=== PATIENT | female | born 1940 | race Caucasian/White ===

== ENCOUNTER 2022-01-14 11:31 | Outpatient (CLI) | payer MEDICARE, OTHER, SELFPAY ==
--- OUTSIDE RECORDS SUMMARY | 2022-02-05 14:44 | XMS_ITS | Clinical Summary ---
:1940 Author Organization [facility] Address [address] [place] [address] Care Team Providers Name Role Phone Unavailable Primary Care Provider Unavailable Source Comments Patient records contain information from all sites at [facility]. For routine questions regarding patient records, call [phone] during business hours, M-F 8:00 AM - 5:00 PM Central Time. Record requests for emergency care only can be directed to [phone] at any time.[facility] Allergies Active Allergy Reactions Severity Noted Date Comments [place] Hives 03/08/2016 Codeine GI intolerance nausea and vo miting from narcotics Medications Medication Sig Dispensed Refills Start Date End Date Status atorvastatin Take 20 mg by mouth 2 04/27/2017 Active (for_LIPITOR) 20 mg once daily. tablet calcium Take 1 tablet by 0 04/01/2016 Ac tive carbonate-vitamin D3 mouth 3 (three) 625 mg (250 mg times a day. calcium)-125 unit per tablet GLUCOSAMINE/CHONDR CHANG Take by mouth 0 04/01/2016 Active A SOD daily. (GLUCOSAMINE-CHONDROI TIN) 1,500-1,200 mg/30 mL liquid lisinopril-hydroCHLOR Take 2 tablets by 3 04/28/2017 Active Othiazide mouth once daily. (for_PRINZIDE,ZESTORE TIC) 20-12.5 mg per tablet multivitamin Take by mouth 0 04/01/2016 Ac tive (for_MULTI-DELYN) daily. liquid EIBHO-6-[id number]-EPA-DPA-F Take 1 capsule by 0 04/01/2016 Active ROYCE OIL ORAL mouth daily. amLODIPine Take 5 mg by mouth 0 Active (for_NORVASC) 5 mg daily. tablet azelaic acid Apply topically 2 0 10/22/2017 Active (FINACEA) 15 % gel (two) times a day as needed. omeprazole (PriLOSEC) Take 40 mg by 0 10/06/2017 Active 40 mg capsule mouth. metroNIDAZOLE Apply to involved 45 g 0 01/25/2019 Active (METROCREAM) 0.75 % areas of face 1-2 cream times per day famotidine (PEPCID) Take 20 mg by mouth 0 06/06/2020 Active 20 mg tablet 2 (two) times a day. celecoxib (CeleBREX) Take 200 mg by 0 06/26/2020 Active 200 mg capsule mouth. naproxen (NAPROSYN) Take 500 mg by 0 06/26/2020 Active 500 mg tablet mouth. lidocaine (XYLOCAINE) Apply topically. 0 02/02/2020 Active 5 % ointment metroNIDAZOLE Apply 1 application 45 g 0 07/11/2020 Active (ROSADAN) 0.75 % gel topically 2 (two) times a day. ketoconazole Apply sparingly to 30 g 1 01/08/2021 Active (NIZORAL) 2 % cream rash involving corners of mouth 1-2 times daily for a few weeks then stop Active Problems No known active problems Immunizations Name Administration Dates Next Due H1N1 Inj 06/13/2009 HZV (ZOSTAVAX) 08/25/2006 HepA Adult 03/06/2004, 09/16/2003 Influenza (IM) Preservative Free 03/15/2011, 03/08/2010 Influenza TIV (IM) 03/20/2019, 03/17/2017, 03/10/2013, 04/02/2012, 03/15/2011, 03/08/2010, 03/16/2009, 04/06/2008, 04/03/2007, 05/08/2005 Influenza, Seasonal, Injectable 03/10/2013, 04/02/2012, 11/0 02/2005 Lyme Disease 09/29/1999, 10/28/1998, 09/28/1998 PCV13 02/21/2015 PPSV23 05/15/2008 RZV (SHINGRIX) 05/28/2018, 03/11/2018 SARS-COV-2 (COVID-19) - PFIZER (12 09/12/2020, 08/18/2020 years or older) Td Preservative Free (TENIVAC, 03/17/2017 DECAVAC) Tdap 10/19/2007 influenza high dose (65 years or 03/02/2020, 03/19/2018, , older) (PF) 03/03/2015, 02/25/2014 Social History Tobacco Use Types Packs/Day Years Used Date Smoking Tobacco: Never Cigarettes Smokeless Tobacco: Never Sex Assigned at Date Recorded Not on file Last Filed Vital Signs Vital Sign Reading Time Taken Comments Blood Pressure 130/84 05/26/2017 9:43 AM [employer]OUND [employer] SUPERVISOR Pulse 78 05/26/2017 9:43 AM [employer]OUND [employer] SUPERVISOR Temperature 36.6 ??C (97.9 ??F) 05/26/2017 9:43 AM [employer]OUND [employer] 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 [address] [place] [phone] (Wo rk) Health Maintenance Due Date Last Done Comments Depression Screening (Annual 06/30/2021 PHQ-2) Creatinine Level 04/18/2022 04/18/2021, 04/11/2020, 04/22/2019, Additional history exists Potassium Level 04/18/2022 04/18/2021, 04/11/2020, 04/22/2019, Additional history exists Sodium Level 04/18/2022 04/18/2021, 04/11/2020, 04/22/2019, Additional history exists Influenza Vaccine (#1) 2022 03/06/2021, 03/02/2020, 03/02/2020, Additional history exists DTaP,Tdap,and Td Vaccines (3 - Td 03/17/2027 03/17/2017, or Tdap) Pneumococcal vaccine (65+ years) Completed 02/21/2015, Zoster Vaccines Completed 05/28/2018, 03/11/2018, 08/25/2006 Fall Risk Screen (Annual) Completed 07/17/2021 COVID-19 Vaccine Completed 10/24/2021, 03/27/2021, 09/12/2020, Additional history exists Insurance Payer Benefit Plan / Subscriber ID Effective Phone Address T ype Group Dates MEDICARE MEDICARE A AND [id number] 1998-Prese [address] [place] [address] MEDICA MEDICA PRIME [id number] 2017-Prese [phone] [address] [place] [address] Advance Directives For more information, please contact: [phone] Documents on File Type Date Recorded 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 See document viewer.
--- OUTSIDE RECORDS SUMMARY | 2022-02-05 14:45 | XMS_ITS | Encounter Summary ---
:1940 Author Organization [facility] Address [address] [place] [address] Care Team Providers Name Role Phone Unavailable Primary Care Provider Unavailable Reason for Referral Outpatient (Routine) - Closed Specialty Diagnoses / Procedures Referred By Contact Refer red To Contact Orthopedic Surgery Mari Tinajero, [facility] D.P.M. [address] [place] [phone] Referral ID Status Reason Start Date Expiration Date Visits Requ ested Visits Authorized [id number] Closed 09/29/2017 03/28/2018 1 1 Scheduling Instructions I have talked to the patient and she felipe l be here at 9:00 for a 9:15 appointment. Encounter Details Date Type Department Care Team Description 09/26/2017 Orders Only Department of Mari Tinajero Pain Foot Left (Primary Orthopedic Surgery in R, D.P.M. Dx) Reginaldo Comer, [address] [place] [address] [address] [place] [phone] (Work) [phone] Social History Tobacco Use Types Packs/Day Years Used Date Smoking Tobacco: Unknown Smokeless Tobacco: Never Sex Assigned at Date Recorded Not on file documented as of this encounter Plan of Treatment Upcoming Encounters Date Type Specialty Care Team Description 03/05/2022 Office Visit Dermatology Finn Quinonez M.D. [address] [place], [place] [phone] (Wo rk) Scheduled Referrals Name Type Priority Associated Diagnoses Order S chedule Ortho Surg / Outpatient Referral Routine Expected : Podiatry estab pt 10/06/2017 visit (clinic) (Approximate) , Expires: 09/29/2020 documented as of this encounter Results DX Foot Left 3+ Views (09/26/2017 12:59 PM CDT) Anatomical Region Laterality Modality Lower Extremity, Foot Left Digital Radiograph y Specimen (Source) Anatomical Collection Method Collection Time Re ceived Time Location / / Volume Laterality 09/26/2017 1:12 PM CDT Impressions 09/26/2017 1:17 PM CDT IMPRESSION: Tiny Achilles and small plantar calcaneal enthesophytes. No radiographic evidence of acute fracture or dislocation. 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 N o erosive or osteolytic changes. No appreciable ankle joint effusion. Probab le pes planus. Narrative 09/26/2017 1:17 PM CDT EXAM: DX FOOT LEFT 3+ VIEWS Procedure Note Amadou Angulo M.D. - 09/26/2017Formatt ing of this note might be different from the original. EXAM: DX FOOT LEFT 3+ VIEWS IMPRESSION: Tiny Achilles and small plan tar calcaneal enthesophytes. No radiographic evidence of acute fracture or dislocation. 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 N o erosive or osteolytic changes. No appreciable ankle joint effusion. Probab le pes planus. Mari [facility] ALEXIS ZAPATA documented in this encounter Visit Diagnoses Diagnosis Pain Foot Left - Primary Pain Foot Left documented in this encounter
--- OUTSIDE RECORDS SUMMARY | 2022-02-05 14:45 | XMS_ITS | Encounter Summary ---
:1940 Author Organization [facility] Address [address] [place] [address] Care Team Providers Name Role Phone Unavailable Primary Care Provider Unavailable Encounter Details Date Type Department Care Team Description 09/12/2020 Immunization Department of Marlon Chen For COVID-19 Medicine, [place] Ilana Trujillo Vaccine Immunization Professional Building, [address] [place] [address] [address] [address] [place] [address] [phone] Social History Tobacco Use Types Packs/Day Years Used Date Smoking Tobacco: Never Cigarettes Smokeless Tobacco: Never Sex Assigned at Date Recorded Not on file documented as of this encounter Plan of Treatment Upcoming Encounters Date Type Specialty Care Team Description 03/05/2022 Office Visit Dermatology Finn Quinonez M.D. [address] [place], [place] [phone] (Wo rk) documented as of this encounter Visit Diagnoses Diagnosis Encounter For COVID-19 Vaccine Immunizat ion documented in this encounter
--- OUTSIDE RECORDS SUMMARY | 2022-02-05 14:45 | XMS_ITS | Encounter Summary ---
:1940 Author Organization [facility] Address [address] [place] [address] Care Team Providers Name Role Phone Unavailable Primary Care Provider Unavailable Reason for Visit Reason Comments Communication Encounter Details Date Type Department Care Team Description 07/28/2017 Clinical Communication Department of [facility] Fer montoya, Communication Medicine, Reginaldo Chun D.P.M. [facility], in [address] [place], [facility] [phone] [phone] [place], [place] (Work) [phone] Social History Tobacco Use Types Packs/Day Years Used Date Smoking Tobacco: Former Smokeless Tobacco: Never Sex Assigned at Date Recorded Not on file documented as of this encounter Miscellaneous Notes Telephone Encounter - Maria Victoria Mcgrath - 07/28/2017 1:42 PM CST Pt is currently doing pt for knee pain and is having a hard time doing physical therapy because of her feet pain. Pt says its had to walk and is wondering if there is anyway to get in to see Dr. Ramos earlier then her apt she currently has for 08/18/17. She can be reached at [phone] R DIRECTOR documented in this encounter Plan of Treatment Upcoming Encounters Date Type Specialty Care Team Description 03/05/2022 Office Visit Dermatology Finn Quinonez M.D. [address] [place], [place] [phone] (Wo rk) documented as of this encounter Visit Diagnoses Not on filedocumented in this encounter
--- OUTSIDE RECORDS SUMMARY | 2022-02-05 14:45 | XMS_ITS | Encounter Summary ---
:1940 Author Organization [facility] Address [address] [place] [address] Care Team Providers Name Role Phone Unavailable Primary Care Provider Unavailable Encounter Details Date Type Department Care Team Description 04/23/2021 Ancillary Procedure Department of Dermatology Social History Tobacco Use Types Packs/Day Years Used Date Smoking Tobacco: Never Cigarettes Smokeless Tobacco: Never Sex Assigned at Date Recorded Not on file documented as of this encounter Plan of Treatment Upcoming Encounters Date Type Specialty Care Team Description 03/05/2022 Office Visit Dermatology Finn Quinonez M.D. [address] [place], [place] [phone] (Wo rk) documented as of this encounter Procedures Procedure Name Priority Date/Time Associated Comments Diagnosis DERMATOLOGY IMAGE Routine 04/23/2021 3:15 PM Resu lts for this EXAM CDT procedure are i n the results section. documented in this encounter Results Cheek, right 12 14 26 28 38-Dermatology Image Exam (04/23/2021 3:15 PM CDT) Specimen (Source) Anatomical Collection Method Collection Time Re ceived Time Location / / Volume Laterality 04/23/2021 3:12 PM CDT Narrative [facility] - 04/23/2021 3:17 PM CDT This order has been created and auto-finalized to support the import of images acquired without order. The clini lexus documentation to support these images can be found on the encounter beau t produced images. Provider Not In System IMG NON RAD IMAGING PROCEDUR ES Performing Organization Address City/State/ZIP Code Phon e Number [facility] NA documented in this encounter Visit Diagnoses Not on filedocumented in this encounter
--- OUTSIDE RECORDS SUMMARY | 2022-02-05 14:45 | XMS_ITS | Encounter Summary ---
:1940 Author Organization [facility] Address [address] [place] [address] Care Team Providers Name Role Phone Unavailable Primary Care Provider Unavailable Reason for Referral Outpatient (Routine) - Closed Specialty Diagnoses / Procedures Referred By Contact Refer red To Contact Orthopedic Surgery Diagnoses Deformity Toe Acquired Right Pain Limb Generalized Mari Tinajero [facility] Region D.P.M. [address] [place] [phone] Referral ID Status Reason Start Date Expiration Date Visits Requ ested Visits Authorized [id number] Closed 10/06/2017 04/04/2018 1 1 Reason for Visit Reason Comments Follow-up Pain Outpatient (Routine) - Closed Specialty Diagnoses / Procedures Referred By Contact Refer red To Contact Orthopedic Surgery Mari Tinajero [facility] D.P.M. [address] [place] [address] Referral ID Status Reason Start Date Expiration Date Visits Requ ested Visits Authorized [id number] Closed 09/29/2017 03/28/2018 1 1 Encounter Details Date Type Department Care Team Description 10/06/2017 Office Visit Department of Mari Tinajero Deformity Toe Acquired Right (Primary Dx); Orthopedic Surgery in R, D.P.M. Pain Limb Generalized Reginaldo Comer, [address] [place] [address] [address] [place] [phone] (Work) [phone] Social History Tobacco Use Types Packs/Day Years Used Date Smoking Tobacco: Never Cigarettes Smokeless Tobacco: Never Sex Assigned at Date Recorded Not on file documented as of this encounter Progress Notes Mari Tinajero D.P.M. - 10/06/2017 9:15 AM CDT CHIEF COMPLAINT / REASON FOR VISIT Rubi Mota is a 77 y.o. female who presents for follow-up of Follow-up and Pain of the Left Foot. HISTORY OF PRESENT ILLNESS Patient seen for follow-up of left 2nd MTPJ pain. She has had 2 previous injections for intermetatarsal space pain, and states that the last 1 was not very beneficial at all. Now she has increasing pain on the dorsum of her foot as well. 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 There is some mild inflammation noted both dorsally and plantarly around the MTPJ. Weightbearing does demonstrate some dorsal displacement at the MTPJ, which is amenable to structural correction with just mild pressure applied dorsally. IMAGING X-ray taken previously and reviewed independently today with the patient demonstrates the increasingprominence of the 2nd hammertoe deformity with MTPJ contracture. ASSESSMENT / PLAN #1 Deformity Toe Acquired Right #2 Pain Limb Generalized Patient has an upcoming trip, and is desiring to be pain free for that. For this reason she was placed in a digital splint to help stabilize the MTPJ. If this works for her then she can continue in this fashion. However, after return from her trip, if she is having recurrence or ongoing problems, we may need to consider addressing the hammertoe deformity surgically at that time. She will follow up again p.r.n.. documented in this encounter Plan of Treatment Upcoming Encounters Date Type Specialty Care Team Description 03/05/2022 Office Visit Dermatology Finn Quinonez M.D. [address] [place] [phone] ( renard) Scheduled Referrals Name Type Priority Associated Diagnoses Order S [facility] Orthopedic Surgery Outpatient Referral Routine Deformity Toe E xpected: office visit Acquired Right 11/05/2017 (clinic) Pain Limb (Approximate), Generalized Expires: 10/06/2020 documented as of this encounter Visit Diagnoses Diagnosis Deformity Toe Acquired Right - Primary Pain Limb Generalized documented in this encounter
--- OUTSIDE RECORDS SUMMARY | 2022-02-05 14:45 | XMS_ITS | Encounter Summary ---
:1940 Author Organization [facility] Address [address] [place] [address] Care Team Providers Name Role Phone Unavailable Primary Care Provider Unavailable Encounter Details Date Type Department Care Team Description 05/22/2017 Abstract Department of Family Medicine, Provider, [facility], in [place], [place] [address] [place] [address] Social History Tobacco Use Types Packs/Day Years Used Date Smoking Tobacco: Former Sex Assigned at Date Recorded Not on file documented as of this encounter Plan of Treatment Upcoming Encounters Date Type Specialty Care Team Description 03/05/2022 Office Visit Dermatology Finn Quinonez M.D. [address] [place], [place] [phone] (Wo rk) documented as of this encounter Visit Diagnoses Not on filedocumented in this encounter
--- OUTSIDE RECORDS SUMMARY | 2022-02-05 14:45 | XMS_ITS | Encounter Summary ---
:1940 Author Organization [facility] Address [address] [place] [address] Care Team Providers Name Role Phone Unavailable Primary Care Provider Unavailable Reason for Referral Specialty Diagnoses / Procedures Referred By Contact Refer red To Contact [facility] [place] [facility] [place] [address] [place] [address] Referral ID Status Reason Start Date Expiration Date Visits Requ ested Visits Authorized ERSHIP SOLICITOR Encounter Details Date Type Department Care Team Description 08/18/2020 Immunization Department of Dorys Pelletier En[place] unter For COVID-19 Medicine, [place] MKamini Vaccine Immunization Professional Building, [address] [facility] (Primary Dx) in [address] [address] [place] [address] [phone] Social History Tobacco Use Types Packs/Day Years Used Date Smoking Tobacco: Never Cigarettes Smokeless Tobacco: Never Sex Assigned at Date Recorded Not on file documented as of this encounter Plan of Treatment Upcoming Encounters Date Type Specialty Care Team Description 03/05/2022 Office Visit Dermatology Finn Quinonez M.D. [address] [place], [place] [phone] (Wo rk) Scheduled Referrals Name Type Priority Associated Diagnoses Order S chedule Covid immunization Outpatient Referral Routine Encounter For E xpected: office visit COVID-19 Vaccine 09/08/2020, Subsequent; 21 days Immunization Expires: 08/18/2023 documented as of this encounter Visit Diagnoses Diagnosis Encounter For COVID-19 Vaccine Immunizat ion - Primary documented in this encounter
--- OUTSIDE RECORDS SUMMARY | 2022-02-05 14:45 | XMS_ITS | Encounter Summary ---
:1940 Author Organization [facility] Address [address] [place] [address] Care Team Providers Name Role Phone Unavailable Primary Care Provider Unavailable Reason for Visit Reason Comments Toe Problem Pain Outpatient (Routine) - Closed Specialty Diagnoses / Procedures Referred By Contact Refer red To Contact Orthopedic Surgery Diagnoses Deformity Toe Acquired Right Pain Limb Generalized Mari Tinajero [facility] D[facility]. [address] [place] [address] Referral ID Status Reason Start Date Expiration Date Visits Requ ested Visits Authorized [id number] Closed 10/06/2017 04/04/2018 1 1 Encounter Details Date Type Department Care Team Description 11/17/2017 Office Visit Department of Mari Tinajero Deformity Toe Acquired Right; Orthopedic Surgery in [place] Pain Limb Generalized [place], [address] [place] [address] [address] [place], [place] [phone] (Work) [phone] Social History Tobacco Use Types Packs/Day Years Used Date Smoking Tobacco: Never Cigarettes Smokeless Tobacco: Never Sex Assigned at Date Recorded Not on file documented as of this encounter Progress Notes Mari Tinajero, D.P.M. - 11/17/2017 10:15 AM CDT CHIEF COMPLAINT / REASON FOR VISIT Chief Complaint Patient presents with ??? Left Foot - Toe Problem, Pain HISTORY OF PRESENT ILLNESS Rubi Mota is a 77 y.o. female who presents for evaluation of left dorsolateral midfoot pain. Previous injections have been done in the 2nd intermetatarsal space and sub 2nd MTPJ. She has new orthotics with 2nd met head accomodation. She was recently on a cruise and may have done some more walking which aggravated her foot. PAST MEDICAL HISTORY, SURGICAL HISTORY, SOCIAL HISTORY, FAMILY HISTORY, ALLERGIES, and MEDICATIONS were reviewed per the electronic health record tab dated 11/17/2017. ROS: Hepatic - negative, Constitutional - negative, Integumentary - negative, GI - negative, Musculoskeletal - see HPI PHYSICAL EXAMINATION: Patient has a semi rigid 2nd PIPJ hammertoe deformity with some contracture and deformity at the MTPJ as well. There is no inflammation and patient has no pain to palpation in this area currently. She does however have pain to palpation on the dorsal lateral midfoot consistent with the 4th 5th met cuboid region. There is no pain with eversion against resistance or along course of peroneal tendon. There is no erythema edema ecchymosis or signs of acute process. IMPRESSION/REPORT Left lateral midfoot pain, history of 2nd hammertoe and MTPJ pain. PLAN: I recommended cortisone injection into the left 4th, 5th cuboid region due to the nature of her pain which has been rated as high as 6/10. The rationale for the procedure was discussed. Risks, benefits, and alternative treatments were discussed as well. The patient was given the opportunity to ask appropriate questions, and does understand the risks, benefits, and alternatives. The patient preference agrees with my recommendation and therefore we will proceed as planned. See procedure note for thisdate. Although she has tried different orthotics recently to resolve her discomfort as well as the digitalsplint, I recommended that she continue with her new, more rigid orthotics to prevent any excessive midfoot movement. She will follow up again p.r.n. if ongoing symptoms or concerns. documented in this encounter Procedure Notes Mari Tinajero D.P.M. - 11/17/2017 10:15 AM CDTAssociated Order(s): SMALL JOINT INJECTION Post-Procedure Diagnose(s): Pain Limb Generalized Small joint aspir-inject Date/Time: 11/17/2017 10:45 AM Performed by: Mari Tinajero Authorized by: Mari Tinajero [facility] Risk Control Consultant services utilized: belt loop cutter not needed Risks discussed with: patient Procedural risks discussed, including (but not limited to) the following: allergic reaction, transient increased pain, infection and subcut. fat atrophy Consent obtained: written The benefits, risks and alternatives to the procedure and the potential need for sedation or anesthesia as well as the names, roles, and responsibilities of healthcare team members performing significant interventional tasks were discussed with the patient and/or decision maker: yes Procedure purpose: therapeutic Skin preparation: alcohol Procedure performed: injection only Foot-Ankle procedure: L midfoot TMT 4 and L midfoot TMT 5 joint injection, end of procedure/site listing. The following medications were administered at the target site(s): Local anesthetics: 1 mL lidocaine (PF) 10 mg/mL (1 %) Corticosteroid: 1 mg dexamethasone 4 mg/mL; 40 mg triamcinolone acetonide 40 mg/mL; 20 mg triamcinolone acetonide 40 mg/mL Procedure outcome: successful procedure Complications: no apparent complications Post-procedure instructions: avoid strenuous activity for 5 days Discharge instruction provided: ice area as needed for comfort documented in this encounter Plan of Treatment Upcoming Encounters Date Type Specialty Care Team Description 03/05/2022 Office Visit Dermatology Finn Quinonez M.D. [address] [place] [phone] (Wo rk) documented as of this encounter Procedures Procedure Name Priority Date/Time Associated Diagnosis Comme nts HI ARTHCS ASP/INJ Routine 11/17/2017 10:15 AM Pain Limb Res ults for this INT JT WO US CDT Generalized procedure are i n the results section. documented in this encounter Results HI ARTHCS ASP/INJ INT JT WO US (11/17/2017 10:15 AM CDT) Narrative MMODAL - 11/17/2017 10:15 AM CDT Brittnee McconnellPTaqueriaMTaqueria ? 11/17/2017 11:41 AM Small joint aspir-inject Date/Time: 11/17/2017 10:45 AM Performed by: Mari Tinajero Authorized by: Mari Tinajero [facility] Risk Control Consultant services utilized: interpret er not needed ?? Risks discussed with: patient Procedural risks discussed, including (b ut not limited to) the following: allergic reaction, transient increased p ain, infection and subcut. fat atrophy Consent obtained: written The benefits, risks and alternatives to the procedure and the potential need for sedation or anesthesia as well as the names, roles, and responsibilities of healthcare team memb ers performing significant interventional tasks were discussed with the patient and/or decision maker: yes ?? Procedure purpose: therapeutic Skin preparation: alcohol Procedure performed: injection only Foot-Ankle procedure: ??L midfoot TMT 4 and L midfoot TMT 5 joint injection, end of procedure/site listing . The following medications were administe red at the target site(s): ??Local anesthetics: 1 mL lidocaine (PF ) 10 mg/mL (1 %) ??Corticosteroid: 1 mg dexamethasone 4 mg/mL; 40 mg triamcinolone acetonide 40 mg/mL; 20 mg triamcinolone acetonide 40 mg/mL Procedure outcome: ??successful procedur e Complications: no apparent complications ??Post-procedure instructions: avoid st renuous activity for 5 days ??Discharge instruction provided: ice a uyliet as needed for comfort Mari Tinajero D.P.MTaqueria PROCEDURE/MINOR SURGICAL ORD ERABLES Performing Organization Address City/State/ZIP Code Phon e Number MMODAL MMODAL NA documented in this encounter Visit Diagnoses Diagnosis Deformity Toe Acquired Right Pain Limb Generalized documented in this encounter Administered Medications Inactive Administered Medications - up to 3 most recent administrations Medication Order MAR Action Action Date Dose Rate Site dexamethasone injection 1 mg Given 11/17/2017 10:45 AM CDT 1 mg (DECADRON) 1 mg, intra-articular, One-Time Injection, Starting on Fri11/17/17 at 1045, For 1 dose lidocaine (PF) 10 mg/mL (1 %) injection 1 mL Given 8 10:45 AM CDT 1 mL (XYLOCAINE) 1 mL, infiltration, One-Time Injection, Starting on Fri11/17/17 at 1045, For 1 dose triamcinolone acetonide injection 20 mg Given 11/17/2017 10:45 A M CDT 20 mg (KENALOG-40) 20 mg, intra-articular, One-Time Injection, Starting on Fri11/17/17 at 1045, For 1 dose triamcinolone acetonide injection 40 mg Given 11/17/2017 10:45 A M CDT 40 mg (KENALOG-40) 40 mg, intra-articular, One-Time Injection, Starting on Fri11/17/17 at 1045, For 1 dose documented in this encounter
--- OUTSIDE RECORDS SUMMARY | 2022-02-05 14:45 | XMS_ITS | Encounter Summary ---
:1940 Author Organization [facility] Address [address] [place] [address] Care Team Providers Name Role Phone Unavailable Primary Care Provider Unavailable Reason for Referral Specialty Diagnoses / Procedures Referred By Contact Refer red To Contact Dorys Casillas M.D. [facility] [address] [place], [place] [phone] Referral ID Status Reason Start Date Expiration Date Visits Requ ested Visits Authorized T CUTTER Encounter Details Date Type Department Care Team Description 08/01/2020 Orders Only [facility] Sa wanda Casillas M.D. [address] [place] [phone] (Rigo glynn) Social History Tobacco Use Types Packs/Day Years Used Date Smoking Tobacco: Never Cigarettes Smokeless Tobacco: Never Sex Assigned at Date Recorded Not on file documented as of this encounter Plan of Treatment Upcoming Encounters Date Type Specialty Care Team Description 03/05/2022 Office Visit Dermatology Finn Quinonez M.D. [address] [place] [phone] (Wo renard) Scheduled Referrals Name Type Priority Associated Order Schedule Diagnoses Covid immunization Outpatient Referral Routine Ex pected: office visit Initial 021 (Approximate), Expires: 08/01/2021 documented as of this encounter Visit Diagnoses Not on filedocumented in this encounter
--- OUTSIDE RECORDS SUMMARY | 2022-02-05 14:45 | XMS_ITS | Encounter Summary ---
:1940 Author Organization [facility] Address [address] [place] [address] Care Team Providers Name Role Phone Unavailable Primary Care Provider Unavailable Reason for Visit Reason Comments Skin Check Appointment Request (Routine) - Closed Specialty Diagnoses / Procedures Referred By Contact Refer red To Contact Family Medicine Referral ID Status Reason Start Date Expiration Date Visits Requ ested Visits Authorized [id number] Closed 11/05/2018 11/05/2019 1 Encounter Details Date Type Department Care Team Description 01/25/2019 Office Visit Department of Finn Quinonez Nevi Multi ple (Primary Dx); [facility] [place] [place] [address] [facility] Keratosis Seborrheic; [address] Angioma [place]; [place] [address] Dermatofibroma; [phone] Cancer Skin Squamous Cell Pe rsonal History; Cancer Skin Basal Cell Personal History Social History Tobacco Use Types Packs/Day Years Used Date Smoking Tobacco: Never Cigarettes Smokeless Tobacco: Never Sex Assigned at Date Recorded Not on file documented as of this encounter Progress Notes Finn Quinonez M.D. - 01/25/2019 3:00 PM CDT SUBJECTIVE CHIEF COMPLAINT/REASON FOR VISIT Skin cancer recheck HISTORY OF PRESENT ILLNESS Ms. Rubi Mota is a 78 y.o. female accompanied by her who presents today for a full skin cancer screening examination. This is my first time seeing her. 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 The patient denies a personal or family history for melanoma. Today, the patient has concern for lesions involving the right distal jarvis, left anterior shoulder, and right back. She also has a history of rosacea previously treated with MetroGel and Finacea. She would like a refill today. Allergies Allergen Reactions ??? [place] Hives ??? Codeine GI intolerance nausea and vomiting from narcotics MEDICAL HISTORY 1. Squamous cell carcinoma of the chest treated by her primary care physician in 2013 2. Basal cell carcinoma of the left lower eyelid removed elsewhere in approximately 2002 FAMILY HISTORY No family history for melanoma. OBJECTIVE PHYSICAL EXAMINATION General: Awake, alert, in no acute distress, and with appropriate affect. Eyes: No scleral injection or icterus. No eyelid abnormalities. Lymph: No lower extremity edema. Skin: I have examined the scalp, face, neck, chest, abdomen, back, bilateral upper extremities, and bilateral lower extremities. My scribe, Bobbi, was present as home appliances mechanic during the entire exam. Examination of the right distal lateral jarvis reveals a dermatofibroma. Examination of the left anterior shoulder reveals a seborrheic keratosis. Examination of the right back reveals some seborrheic keratoses. Examination of the back otherwise reveals multiple seborrheic keratoses, some benign nevi, and multiple [place]inton angiomas. Examination of the legs reveals a few seborrheic keratoses and some vascular lesions. Examination of the arms reveals some benign nevi, seborrheic keratoses, and angiomas. Examination of the chest reveals no evidence of recurrence of squamous cell carcinoma. No suspicious lesions for skin cancer today. ASSESSMENT/PLAN #1 Multiple nevi The ABCDE criteria for melanoma was reviewed with the patient. None of the patient's nevi reach the clinical threshold for biopsy. I recommend continued sun protection, self-skin examinations, and observation. Should any of the patient's nevi change in size, color, texture, or shape or develop symptoms such as itching or bleeding, I recommend an immediate return visit for reassessment. Otherwise follow up for annual skin exam in 12 months. #2 Trunk and extremities: Seborrheic keratosis The benign nature of the skin lesion(s) was discussed with the patient. No treatment is required. I recommend continued observation. Should symptoms or changes develop related to this condition, I would recommend a return visit for reassessment. #3 Right distal lateral jarvis: Dermatofibroma The benign nature of the skin lesion was discussed with the patient. No treatment is required. I recommend continued observation. Should this lesion change in size, color, texture, or shape or develop symptoms such as itching or bleeding, I recommend an immediate return visit for reassessment. #4 Trunk and extremities: [place] angiomas The benign nature of the skin lesion was discussed with the patient. No treatment is required. I recommend continued observation. Should this lesion change in size, color, texture, or shape or develop symptoms such as itching or bleeding, I recommend an immediate return visit for reassessment. #5 Face: Rosacea The patient requests a refill of topical medication for rosacea. She has been using Finacea gel as this was apparently preferred by her insurance at the time. I recommended starting Metrocream 1-2 times daily as needed to involved areas for rosacea. If this is cost prohibitive depending on her insurance, she will let us know and we can switch to another medication such as Finacea. #6 Chest: History of squamous cell carcinoma treated by her primary care physician in October 2013 No evidence for recurrence of squamous cell carcinoma on clinical exam today. Follow-up immediately if any changes or evidence for recurrence. PATIENT EDUCATION: Ready to learn. No apparent learning barriers were identified. Learning preferences include listening. Explained diagnosis and treatment plan; patient/guardian of patient expressed understanding of thecontent. By signing my name below, I, Bobbi Fernandez, attest that this documentation has been prepared under thedirection and in the presence of Finn Quinonez M.D. Electronically Signed: carolyne Landa. 01/25/2019. 3:14 PM . Finn Cleary M.D., personally performed the services described in this documentation. All medical record entries made by the mamieibioana were at my direction and in my presence. I have reviewed the chart and discharge instructions (if applicable) and agree that the record reflects my personal performance and is accurate and complete. Finn Quinonez M.D. . 01/25/2019. 4:30 PM. documented in this encounter Plan of Treatment Upcoming Encounters Date Type Specialty Care Team Description 03/05/2022 Office Visit Dermatology Finn Quinonez M.D. [address] [place], [place] [phone] (Wo rk) documented as of this encounter Visit Diagnoses Diagnosis Nevi Multiple - Primary Rosacea Keratosis Seborrheic Angioma [place] Dermatofibroma Cancer Skin Squamous Cell Personal Histo ry Cancer Skin Basal Cell Personal History documented in this encounter
--- OUTSIDE RECORDS SUMMARY | 2022-02-05 14:45 | XMS_ITS | Encounter Summary ---
:1940 Author Organization [facility] Address [address] [place] [address] Care Team Providers Name Role Phone Unavailable Primary Care Provider Unavailable Encounter Details Date Type Department Care Team Description 08/18/2017 Hospital Encounter HX NO MAPPING Social History Tobacco Use Types Packs/Day Years Used Date Smoking Tobacco: Former Smokeless Tobacco: Never Sex Assigned at Date Recorded Not on file documented as of this encounter Medications at Time of Discharge Medication Sig Dispensed Refills Start Date End Date atorvastatin Take 20 mg by mouth 2 04/27/2017 (for_LIPITOR) 20 mg once daily. tablet calcium carbonate-vitamin Take 1 tablet by 0 08/2015 D3 625 mg (250 mg mouth 3 (three) calcium)-125 unit per times a day. tablet GLUCOSAMINE/CHONDR CHANG A Take by mouth daily. 0 SOD (GLUCOSAMINE-CHONDROITIN) 1,500-1,200 mg/30 mL liquid lisinopril-hydroCHLOROthi Take 2 tablets by 3 azide mouth once daily. (for_PRINZIDE,ZESTORETIC) 20-12.5 mg per tablet multivitamin Take by mouth daily. 0 04/01/2016 (for_MULTI-DELYN) liquid IXTAO-1-RCY-EIZ-PYZ-CCNO Take 1 capsule by 0 08/2015 OIL ORAL mouth daily. raNITIdine (for_ZANTAC) Take 150 mg by mouth 3 01/25/2019 150 mg tablet 2 (two) times a day. documented as of this encounter Plan of Treatment Upcoming Encounters Date Type Specialty Care Team Description 03/05/2022 Office Visit Dermatology Finn Quinonez M.D. [address] [place], [place] [phone] (Rigo glynn) documented as of this encounter Visit Diagnoses Not on filedocumented in this encounter
--- OUTSIDE RECORDS SUMMARY | 2022-02-05 14:45 | XMS_ITS | Encounter Summary ---
:1939 Author Organization [facility] Address [address] [place] [address] Care Team Providers Name Role Phone Unavailable Primary Care Provider Unavailable Encounter Details Date Type Department Care Team Description 06/03/2016 Hospital Encounter HX [facility] Mari Tinajero D.P.M. [address] [place] [phone] (Wo rk) Social History Tobacco Use Types Packs/Day Years Used Date Smoking Tobacco: Never Assessed Sex Assigned at Date Recorded Not on file documented as of this encounter Last Filed Vital Signs Vital Sign Reading Time Taken Comments Blood Pressure 126/84 06/03/2016 11:09 AM LAUNDRY WORKER Pulse 76 06/03/2016 11:09 AM LAUNDRY WORKER Temperature - - Respiratory Rate 16 06/03/2016 11:09 AM LAUNDRY WORKER Oxygen Saturation - - Inhaled Oxygen Concentration - - Weight - - Height - - Body Mass Index - - documented in this encounter Medications at Time of Discharge Medication Sig Dispensed Refills Start Date End Date calcium carbonate-vitamin Take 1 tablet by 0 08/2015 D3 625 mg (250 mg mouth 3 (three) times calcium)-125 unit per a day. tablet GLUCOSAMINE/CHONDR CHANG A Take by mouth daily. 0 SOD (GLUCOSAMINE-CHONDROITIN) 1,500-1,200 mg/30 mL liquid multivitamin Take by mouth daily. 0 04/01/2016 (for_MULTI-DELYN) liquid [id number] Take 1 capsule by 0 08/2015 OIL ORAL mouth daily. documented as of this encounter Progress Notes Mari Tinajero D.P.M. - 06/03/2016 10:46 AM CST [id number] Patient is 75-year-old female seen for followup of left foot pain and swelling. She had an injectionperformed in a 2nd MTPJ early March, and states that she had improvement in her symptoms up until about May 16 where she had an acute exacerbation with some extreme swelling and pain. Some slight redness following an acupuncture treatment. She saw her primary provider at which time an x-ray was taken and was read as negative. No signs of stress fracture. She typically does have some degree of increased edema on the left as compared to the right due to venous stasis but states that at that time it was definitely worse. She was also given a Medrol dose pack which she took for 10 days and feel s that her symptoms have improved but not back to what they were originally. PHYSICAL EXAMINATION Pain to palpation noted left 2nd interspace and sub 2 metatarsal head, also along the course of the extensor digitorum longus tendon overlying the 2nd metatarsal. There is some increased edema that is noted but there is no erythema. I did question her on her symptoms that she had back in April er she thought this was of gout or not and certainly she states that she did consider that. Currently she is not having any of those symptoms but we did discuss that if they should recur that she should follow up for blood testing at that point. She does have a family history of gout but has never personally had an episode. Her orthotics were evaluated and she does have a pressure point noted in the orthotic left sub 2nd which ideally should be off weighted to reduce pressure on the area. She does have some mild flexible hammertoe development but I do not feel like this is contributing extensively to her condition. IMPRESSION/REPORT/PLAN Left sub 2nd metatarsophalangeal joint capsulitis, resultant metatarsalgia and some dorsal foot painas well. PLAN: Orthotic was accommodated to off weight the affected area. If she should have ongoing problems, to follow up or certainly if she should have an exacerbation that resembles gout to follow for blood testing at that time. Also will schedule her for followup appointment in early June. That way ifshe is not improved we can consider repeat injection. Patient understanding and happy with this plan. Follow up as above. Mari Tinajero D.P.M./joss Electronically Signed By: MARI TINAJERO DPM On: 06/06/2016 03:02 PM Source: [facility] MHSDOLBEYNONRADSYS Document Id: [id number] DRY WORKER documented in this encounter Miscellaneous Notes Miscellaneous - Mari Tinajero D.P.M. - 06/03/2016 11:44 AM CST Ambulatory Patient Summary [address] [id number] Visit Information Name: RUBI MOTA [facility] Number: [id number] Current Date: 06/03/2016 11:44:57 Physicians Attending Provider: MARI TINAJERO DPM Primary Care Provider: PCP, RUBI LE has been given the following list of follow-up instructions, medication list, and patient education materials: Follow-up Instructions Your Medications Here is a list of your medications. It is important to take your medications as directed. Use a pillbox or chart to help remind you to take your medications. Please let your doctor or nurse know if you have problems taking your medications. Medication/Strength How to Take Indications/Special Instructions/Comments/Notes for Patient Medication Changes/Routing atorvastatin (atorvastatin 20 mg oral tablet) 1 Tablet(s), Oral, once a day (at bedtime) calcium-vitamin D (Calcium/Vitamin D 250/125) 1 Tablet(s), Oral, three times a day glucosamine-chondroitin (glucosamine-chondroitin oral kit) lisinopril-hydrochlorothiazide (lisinopril-hydrochlorothiazide 20 mg-12.5 mg oral tablet) 2 Tablet(s), Oral, once a day (Zestoretic) multivitamin (Multiple Vitamins oral liquid) omega-3 polyunsaturated fatty acids (Fish Oil) Oral ranitidine (ranitidine 150 mg oral capsule) 1 cap, Oral, two times a day Stop Taking the Following Medications: Medication list as of 06-03-16 11:44 Attention: If you have any medications at home that are not on this list, DO NOT take them until youcontact your provider for clarification. Give a copy of your medication list to your primary care provider. Update your medication list any time medications or doses are changed and carry your medication list at all times in case of emergency. Electronically Signed By: MARI TINAJERO DPM Signed On:03-JUN-2016 11:44:55 Your Allergies & Intolerances Substance Reaction Symptoms Category Comments No Known Medication Allergies Drug N/V from narcotics Your Problem List Problem Status Onset Comments .No Known Problems Active Your Upcoming Appointments Date Time Location Provider No Appointments found Attention: Contact your local Clinic if further appointment detail needed. Consider Using Patient Online Services Patient Online Services is a secure online and Mobile application that lets you: ?? View lab and test results ?? View portions of your medical record including clinical notes, immunizations and discharge summaries ?? Request an appointment or medication refill ?? Review your appointment schedule ?? Send secure messages to your care team Its easy to create an account if you dont have one. Go to [email or web address] and click on Create Your Account. Then, follow the directions to complete the online form. Youll be asked for your [facility] number which you can find at the top of this document. Your Goals/Additional instructions: Source: [facility] POWERCHART Document Id: [id number] DRY WORKER Miscellaneous - Mari Tinajero D.PTaqueriaM. - 06/03/2016 11:44 AM CST Ambulatory Discharge Medication List [address] [id number] Visit Information Name: RUBI MOTA [facility] Number: [id number] Current Date: 06/03/2016 11:44:57 Attending Provider: MARI TINAJERO DPM Primary Care Provider: PCP, RUBI LE has been given the following list of medications: Your Medications It is important to take your medications as directed. Use a pill box or chart to help remind you to take your medications. Please let your doctor or nurse know if you have problems taking your medications. Medication/Strength How to Take Indications/Special Instructions/Comments/Notes for Patient Medication Changes/Routing atorvastatin (atorvastatin 20 mg oral tablet) 1 Tablet(s), Oral, once a day (at bedtime) calcium-vitamin D (Calcium/Vitamin D 250/125) 1 Tablet(s), Oral, three times a day glucosamine-chondroitin (glucosamine-chondroitin oral kit) lisinopril-hydrochlorothiazide (lisinopril-hydrochlorothiazide 20 mg-12.5 mg oral tablet) 2 Tablet(s), Oral, once a day (Zestoretic) multivitamin (Multiple Vitamins oral liquid) omega-3 polyunsaturated fatty acids (Fish Oil) Oral ranitidine (ranitidine 150 mg oral capsule) 1 cap, Oral, two times a day Stop Taking the Following Medications: Medication list as of 06-03-16 11:44 Attention: If you have any medications at home that are not on this list, DO NOT take them until youcontact your provider for clarification. Give a copy of your medication list to your primary care provider. Update your medication list any time medications or doses are changed and carry your medication list at all times in case of emergency. Electronically Signed By: MARI TINAJERO DPM Signed On:03-JUN-2016 11:44:55 Additional Information: Source: [facility] POWERCHART Document Id: [id number] DRY WORKER Miscellaneous - Charlotte Aceves, R.N. 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 Network And Systems Engineer Intake/History Adult Computer Network And Systems Engineer Intake/History Entered On: 06/03/2016 11:12 LAUNDRY WORKER Performed On: 06/03/2016 11:09 LAUNDRY WORKER by CHARLOTTE ACEVES psychology professor Chief Complaint : f/u left foot pain and swelling, was better until may 16, comes and goes Temperature Core : 36.6 DegC(Converted to: 97.9 DegF) Peripheral Pulse Rate : 76 /min Respiratory Rate : 16 /min Heart Rhythm : Regular Systolic Blood Pressure : 126 mmHg Diastolic Blood Pressure : 84 mmHg NIBP Mean : 98 mmHg BP Location : Left upper extremity Blood Pressure Cuff Size : Regular SpO2 : 99 % CHARLOTTE ACEVES RN - 06/03/2016 11:09 LAUNDRY WORKER General Info Information Given By : Patient Preferred Communication Mode : Verbal Languages : [place] Verdean Is Patient Female and 13-50 no hysterectomy : No CHARLOTTE ACEVES RN - 06/03/2016 11:09 LAUNDRY WORKER Subjective Pain Symptoms : Yes CHARLOTTE ACEVES RN - 06/03/2016 11:09 LAUNDRY WORKER Pain Scale Pain Scale Verbal 0-10 : Open CHARLOTTE ACEVES RN - 06/03/2016 11:09 LAUNDRY WORKER Pain Pain Assessment Grid Pain 1 Location : Foot CHARLOTTE ACEVES RN - 06/03/2016 11:09 LAUNDRY WORKER Dependent Habits Exposure to Tobacco Smoke : Other: former Smoking Status : Former smoker Tobacco 2A : Yes Tobacco Use/Currently Using : No Tobacco Use/Last 30 Days : No Tobacco Use/Last 12 months : No CHARLOTTE ACEVES RN - 06/03/2016 11:09 LAUNDRY WORKER [facility] Document Id: [id number] LAUNDRY WORKER!33 DRY WORKER documented in this encounter Plan of Treatment Upcoming Encounters Date Type Specialty Care Team Description 03/05/2022 Office Visit Dermatology Finn Quinonez M.D. [address] [place] [address] [phone] (Wo rk) documented as of this encounter Visit Diagnoses Not on filedocumented in this encounter
--- OUTSIDE RECORDS SUMMARY | 2022-02-05 14:45 | XMS_ITS | Encounter Summary ---
:1939 Author Organization [facility] Address [address] [place] [address] Care Team Providers Name Role Phone Unavailable Primary Care Provider Unavailable Encounter Details Date Type Department Care Team Description 09/09/2016 Hospital Encounter HX [facility] Mari Tinajero D.P.M. [address] [place] [phone] (Wo rk) Social History Tobacco Use Types Packs/Day Years Used Date Smoking Tobacco: Former Sex Assigned at Date Recorded Not on file documented as of this encounter Last Filed Vital Signs Vital Sign Reading Time Taken Comments Blood Pressure 136/86 09/09/2016 1:50 PM CDT Pulse 72 09/09/2016 1:50 PM CDT Temperature - - Respiratory Rate 16 09/09/2016 1:50 PM CDT [...] by mouth daily. 0 04/01/2016 (for_MULTI-DELYN) liquid [id number] Take 1 capsule by 0 08/2015 OIL ORAL mouth daily. documented as of this encounter Progress Notes Mari Tinajero D.P.M. - 09/09/2016 1:38 PM CDT [id number] Patient seen for follow up of orthotic dispensing for bilateral foot pain, sub 2nd capsulitis left foot. Patient states that these have helped her, however she has some concerns especially involving the top cover and the prominent neuroma pad which she is able to feel. PHYSICAL EXAMINATION Orthotics conform well to her feet. They seem to be appropriate for what she is needing. She does have some pitting edema on the left lower leg and dorsum of the foot. IMPRESSION/REPORT/PLAN We did discuss ongoing use of compression stockings for this. The neuroma pad of the orthotic is quite thick so we will have this modified with reduction by 1/2 of the thickness. Also will add a thin plantar extension to the top cover forefoot to reinforce to facilitate transitioning from shoe to shoe. Patient understanding and happy with this plan. We will notify her upon receipt of the modified devices and have her cook pickled meat at that time. Call if questions or problems thereafter. Mari Tinajero D.P.M./joss Electronically Signed By: MARI TINAJERO DPM On: 09/12/2016 02:45 PM Source: [facility] MHSDOLBEYNONRADSYS Document Id: [id number] documented in this encounter Miscellaneous Notes Miscellaneous - Mari Tinajero D.PTaqueriaMTaqueria - 09/09/2016 2:26 PM CDT Ambulatory Patient Summary [address] [place], [place] [id number] Visit Information Name: RUBI MOTA [facility] Number: [id number] Current Date: 09/09/2016 14:26:04 Physicians Attending Provider: MARI TINAJERO DPM Primary Care Provider: PCP, ELSEWHERE RUBI MOTA has been given the following list of follow-up instructions, medication list, andpatient education materials: Follow-up Instructions Your Medications Here [...] the Following Medications: Medication list as of 09-09-16 14:26 Attention: If you have any medications at [...] Electronically Signed By: MARI TINAJERO DPM Signed On:09-SEP-2016 14:26:02 Your Allergies & Intolerances Substance Reaction Symptoms [...] if you dont have one. Go to [email or web address] and click on Create Your Account. Then, follow the directions to complete the online form. Carlos be asked for your [facility] number which you can find at the top of this document. Your Goals/Additional instructions: Source: [facility] POWERCHART Document Id: [id number] Miscellaneous - Mari Tinajero D.P.M. - 09/09/2016 2:26 PM CDT Ambulatory Discharge Medication List [address] [id number] Visit Information Name: RUBI MOTA [facility] Number: [id number] Current Date: 09/09/2016 14:26:03 Attending Provider: MARI TINAJERO DPRonnie Primary Care Provider: PCP, RUBI LE has [...] the Following Medications: Medication list as of 09-09-16 14:26 Attention: If you have any medications at [...] Electronically Signed By: MARI TINAJERO DPM Signed On:09-SEP-2016 14:26:02 Additional Information: Source: [facility] GOOM Document Id: [id number] Miscellaneous - Charlotte Aceves RTaqueriaN. 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 Cosmetics Supervisor Intake/History Entered On: 09/09/2016 13:55 CDT Performed On: 09/09/2016 13:50 CDT by CHARLOTTE ACEVES pouring crane operator Chief Complaint : f/u orthotics, some days good, some painful Temperature Core : 36.6 DegC(Converted to: 97.9 DegF) Peripheral Pulse Rate : 72 /min Respiratory Rate : 16 /min Heart Rhythm : Regular Systolic Blood Pressure : 136 mmHg Diastolic Blood Pressure : 86 mmHg NIBP Mean : 103 mmHg BP Location : Left upper extremity Blood Pressure Cuff Size : Regular SpO2 : 99 % CHARLOTTE ACEVES RN - 09/09/2016 13:50 CDT General Info Information Given By : Patient Preferred Communication Mode : Verbal Languages : Czech Is Patient Female and 13-50 no hysterectomy : No CHARLOTTE ACEVES RN - 09/09/2016 13:50 CDT Subjective Pain Symptoms : Yes CHARLOTTE ACEVES RN - 09/09/2016 13:50 CDT Pain Scale Pain Scale Verbal 0-10 : Open CHARLOTTE ACEVES RN - 09/09/2016 13:50 CDT Pain Pain Assessment Grid Pain 1 Location : Foot CHARLOTTE ACEVES RN - 09/09/2016 13:50 CDT Dependent Habits Exposure to Tobacco Smoke : Other: former Smoking Status : Former smoker Tobacco 2A : Yes Tobacco Use/Currently Using : No Tobacco Use/Last 30 Days : No Tobacco Use/Last 12 months : No CHARLOTTE ACEVES RN - 09/09/2016 13:50 CDT Source: [facility] POWERCHART Document Id: [id number] CDT!33 documented in this encounter Plan of Treatment Upcoming Encounters Date Type Specialty Care Team Description 03/05/2022 Office Visit Dermatology Finn Quinonez M.D. [address] [place] [address] [phone] (Wo rk) documented as of this encounter Visit Diagnoses Not on filedocumented in this encounter
--- OUTSIDE RECORDS SUMMARY | 2022-02-05 14:45 | XMS_ITS | Encounter Summary ---
:1939 Author Organization [facility] Address [address] [place] [address] Care Team Providers Name Role Phone Unavailable Primary Care Provider Unavailable Reason for Referral Outpatient (Routine) - Closed Specialty Diagnoses / Procedures Referred By Contact Refer red To Contact Dermatology Finn Quinonez M.D . [facility] [address] [place] [address] Referral ID Status Reason Start Date Expiration Date Visits Requ ested Visits Authorized [id number] Closed 07/11/2020 07/11/2021 1 1 Scheduling Instructions Recheck skin lesion lateral to left eye in 4-6 weeks GRAPHER AGENT Reason for Visit Reason Comments Skin Check Appointment Request (Routine) - Closed Specialty Diagnoses / Procedures Referred By Contact Refer red To Contact Family Medicine Referral ID Status Reason Start Date Expiration Date Visits Requ ested Visits Authorized [id number] Closed 05/01/2020 05/01/2021 1 1 Encounter Details Date Type Department Care Team Description 07/11/2020 Office Visit Department of Finn Quinonez, [place] (Primary Dx); Dermatology in [facility]; [place], [place] [address] [phone] Social History Tobacco Use Types Packs/Day Years Used Date Smoking Tobacco: Never Cigarettes Smokeless Tobacco: Never Sex Assigned at Date Recorded Not on file documented as of this encounter Progress Notes Finn Quinonez M.D. - 07/11/2020 1:45 PM CST SUBJECTIVE CHIEF COMPLAINT / REASON FOR VISIT Skin cancer recheck HISTORY OF PRESENT ILLNESS Ms. Rubi Mota is a 79 y.o. female who presents today for a full skin cancer screening examination. The patient was last seen by me in Dermatology clinic on 01/10/2020. The patient has a history of multiple non-melanoma skin cancers, most recently scc involving the chest, treated by primary carephysician in 2013. The patient denies a personal or family history for melanoma. No areas of concern today. Allergies Allergen Reactions ??? Black [place]ird[place] Hives ??? 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 Basal cell carcinoma of the left lower eyelid removed elsewhere in approximately 2002 ?? FAMILY HISTORY No family history for melanoma. FAMILY HISTORY No family history for melanoma. OBJECTIVE PHYSICAL EXAMINATION General: Awake, alert, in no acute distress, and with appropriate affect. Eyes: No scleral injection or icterus. No eyelid abnormalities. Lymph: No lower extremity edema. Skin: I have examined the scalp, face, neck, chest, abdomen, back, bilateral upper extremities, and bilateral lower extremities. My scribe Hali was present for the full exam today. Examination of the chest reveals no clinical evidence for local recurrence of scc. Examination of the left lower eyelid reveals no clinical evidence for local recurrence of bcc. Examination of the face reveals some mild telangiectasia compatible with history of rosacea, no papules or pustules present. Examination of the area lateral to the left eyelid reveals a focal dry macule that is not rough. Examination of trunk, and extremities reveals multiple benign appearing nevi and lentigines, and multiple SKs. Examination today reveals no suspicious lesions for skin cancer. ASSESSMENT / PLAN #1 Chest, left lower eyelid: History of multiple non melanoma skin cancers x 2, no recurrence Examination today reveals no clinical evidence of recurrence. Follow up immediately if changes are noticed during monthly self examination. Otherwise followup in 6-12 months. #2 Face: Rosacea I have prescribed Metrogel to be applied twice daily to the involved areas on the face. Follow up asneeded for any new or changing lesions of concern. #3 Lateral to left eye: Dry skin vs AK I have asked her to apply an over the counter moisturizing cream like Vanicream twice daily for one month. Follow up in one month for a recheck of this lesion. If it still persists we may consider treatment with cryotherapy. #4 Trunk, and extremities: Multiple benign appearing nevi and lentigines The ABCDE criteria for melanoma was reviewed with the patient. None of the patient's nevi reach the clinical threshold for biopsy. I recommend continued sun protection, self-skin examinations, and observation. Should any of the patient's nevi change in size, color, texture, or shape or develop symptoms such as itching or bleeding, I recommend an immediate return visit for reassessment. #5 Trunk, and extremities: Seborrheic keratosis The benign nature of the skin lesion(s) was discussed with the patient. No treatment is required. I recommend continued observation. Should symptoms or changes develop related to this condition, I would recommend a return visit for reassessment. PATIENT EDUCATION: Ready to learn. No apparent learning barriers were identified. Learning preferences include listening. Explained diagnosis and treatment plan; patient/guardian of patient expressed understanding of thecontent. By signing my name below, I, Nellie Mason, attest that this documentation has been prepared underthe direction and in the presence of Finn Quinonez M.D. Electronically Signed: carolyne Rojas. 07/11/2020 Finn Cleary M.D., personally performed the services described in this documentation. All medical record entries made by the scribe were at my direction and in my presence. I have reviewed the chart and discharge instructions (if applicable) and agree that the record reflects my personal performance and is accurate and complete. Finn Quinonez M.D. 07/11 GRAPHER AGENT documented in this encounter Plan of Treatment Upcoming Encounters Date Type Specialty Care Team Description 03/05/2022 Office Visit Dermatology Finn Quinonez M.D. [address] [place] [address] [phone] (Wo rk) Scheduled Referrals Name Type Priority Associated Order Schedule Diagnoses Dermatology office Outpatient Referral Routine Ex pected: visit (clinic) 10/09/2020 (Approximate), Expires: 07/11/2023 documented as of this encounter Visit Diagnoses Diagnosis Nevi Multiple - Primary Keratosis Seborrheic Rosacea documented in this encounter
--- OUTSIDE RECORDS SUMMARY | 2022-02-05 14:45 | XMS_ITS | Encounter Summary ---
:1940 Author Organization [facility] Address [address] [place] [address] Care Team Providers Name Role Phone Unavailable Primary Care Provider Unavailable Reason for Referral Outpatient (Routine) - Authorized Specialty Diagnoses / Procedures Referred By Contact Refer red To Contact Dermatology Finn Quinonez M.D . [facility] Region [address] [place] [address] Referral ID Status Reason Start Date Expiration Date Visits V isits Requested Authorized [id number] Authorized 07/17/2021 07/17/2022 1 1 Scheduling Instructions Recheck distal tongue lesion in 4 months METRY PROFESSOR Reason for Visit Reason Comments Skin Check Appointment Request (Routine) - Closed Specialty Diagnoses / Procedures Referred By Contact Refer red To Contact Dermatology Referral ID Status Reason Start Date Expiration Date Visits Requ ested Visits Authorized [id number] Closed 04/23/2021 04/23/2022 1 1 Encounter Details Date Type Department Care Team Description 07/17/2021 Office Visit Department of Finn Quinonez, Tumor Skin Uncertain Behavior (Primary Dx); Dermatology in [place] Preciado [facility]; [place], [place] [address] [facility] Keratosis Seborrheic [address] [place] [phone] Social History Tobacco Use Types Packs/Day Years Used Date Smoking Tobacco: Never Cigarettes Smokeless Tobacco: Never Sex Assigned at Date Recorded Not on file documented as of this encounter Progress Notes Finn Quinonez M.D. - 07/17/2021 12:45 PM CST SUBJECTIVE CHIEF COMPLAINT / REASON FOR VISIT Full skin cancer screening Lesion x 1 HISTORY OF PRESENT ILLNESS Rubi Mota is a pleasant 80 y.o. female who presents for a full skin cancer screening as well as a recheck of a lesion just proximal to distal tip of tongue. The patient was last seen by me in Dermatology clinic on 04/23/21. The patient has a history of??multiple non-melanoma skin cancers, most r ecently??squamous cell carcinoma??involving the chest treated by her??primary care provider??in 2013.??She??denies a personal or family history for melanoma.??She uses sunscreen.?? MEDICAL HISTORY 1.??Chest: History of squamous cell carcinoma,??treated by her primary care physician in 2013 2.??Left lower eyelid: History of basal cell carcinoma,??removed elsewhere in approximately 2002 3. Negative for melanoma ?? FAMILY HISTORY Negative for melanoma OBJECTIVE PHYSICAL EXAMINATION General: Awake, alert, in no acute distress, and with appropriate affect. Eyes: No scleral injection or icterus. No eyelid abnormalities. Lymph: No lower extremity edema. Skin: I have examined the scalp, face, neck, chest, abdomen, back, bilateral upper extremities, and bilateral lower extremities. My nurse (Magalys) served as a oracle database manager for the entirety of the exam. Examination of the face, trunk and extremities reveals multiple benign-appearing nevi, lentigines and seborrheic keratoses. Examination??just proximal to??the distal tip of the tongue reveals a 2 x 1 mm light-brown macule that is slightly verrucous compatible with a benign papilloma versus verrucal keratosis. There is no infiltration or induration. She will follow-up with her local dentist in next month and we should recheck in 3-4 months Examination of the right axilla and upper back reveals 2 dilated pores. Patient was reassured. No recurrence of previous nonmelanoma skin cancers involving left lower eyelid or chest. Examination of her left mid lateral back reveals a 1 x 0.5 cm brown verrucous papule with darker brown to black coloration at the superior portion ASSESSMENT / PLAN # 1 Face, trunk and extremities: Multiple nevi and lentigines The ABCDE criteria for melanoma was reviewed with the patient. None of the patient's nevi reach the clinical threshold for biopsy. I recommend continued sun protection, self-skin examinations, and observation. Should any of the patient's nevi change in size, color, texture, or shape or develop symptoms such as itching or bleeding, I recommend an immediate return visit for reassessment. # 2 Face, trunk and extremities: Seborrheic keratosis The benign nature of the skin lesion(s) was discussed with the patient. No treatment is required. I recommend continued observation. Should this lesion change in size, color, texture, or shape or develop symptoms such as itching or bleeding, I recommend an immediate return visit for reassessment. # 3: Left mid lateral back: Pigmented seborrheic keratosis Given how dark brown-black the superior portion of this lesion is, I discussed shave biopsy removal just to be on the safe side and she is in agreement with this plan. CONSENT Discussed the risks, benefits, alternatives, and the necessity of other members of the healthcare team participating in the procedure. All questions answered and consent given. UNIVERSAL PROTOCOL Procedural pause conducted to verify: correct patient identity, procedure to be performed, and as applicable, correct side and site, correct patient position, and availability of implants, special equipment, or special requirements. PROCEDURE INFORMATION Shave biopsy. We explained the potential diagnosis and recommended that we obtain a biopsy. The risks and benefitsof the procedure were discussed, and the patient consented to these procedures. Using 1% lidocaine with epinephrine for local anesthesia, a shave biopsy was obtained from the left mid lateral back. Biopsy submitted to Dermatopathology for H&E. Special stains will be performed as indicated. The bleeding was well controlled with application of aluminum chloride. Dressing was applied, and wound careinstructions were explained. Biopsy results and any further recommendations will be communicated to the patient by letter. Patient given pamphlet [id number]. PATIENT EDUCATION: Ready to learn. No apparent learning barriers were identified. Learning preferences include listening. Explained diagnosis and treatment plan; patient/guardian of patient expressed understanding of thecontent. By signing my name below, I, Sharona Barron, attest that this documentation has been prepared under the direction and in the presence of Finn Quinonez M.D. Electronically Signed: carolyne Mirza. 07/10/2021. 11:49 AM OPTOMETRY PROFESSOR. I, Finn Quinonez M.D., personally performed the services described in this documentation. All medical record entries made by the mamieibioana were at my direction and in my presence. I have reviewed the chart and discharge instructions (if applicable) and agree that the record reflects my personal performance and is accurate and complete. Finn Quinonez M.D. METRY PROFESSOR documented in this encounter Miscellaneous Notes Result Encounter Note - Finn Quinonez M.D. - 07/23/2021 3:25 PM CST Left lateral back, mid: Benign lesion letter. Darrel Comer patient. Please send letter METRY PROFESSOR documented in this encounter Plan of Treatment Upcoming Encounters Date Type Specialty Care Team Description 03/05/2022 Office Visit Dermatology Finn Quinonez M.D. [address] [place] [phone] (Wo rk) Scheduled Referrals Name Type Priority Associated Order Schedule Diagnoses Dermatology office Outpatient Referral Routine Ex pected: visit (clinic) 10/15/2021 (Approximate), Expires: 10/15/2022 documented as of this encounter Procedures Procedure Name Priority Date/Time Associated Comments Diagnosis DERMATOPATHOLOGY CONSULT Routine 07/17/2021 1:04 Tumor Skin Results for this PM OPTOMETRY PROFESSOR Uncertain Behavior procedure are in the results section. documented in this encounter Results Dermatopathology Consult (07/17/2021 1:04 PM OPTOMETRY PROFESSOR) Component Value Ref Test Analysis Performed Pathologis t Range Method Time At Signature 07/23/2021 PDRM 3:07 PM OPTOMETRY PROFESSOR Participated in Alvaro Franklin 07/23/2021 TRUDI the , 3:07 PM OPTOMETRY PROFESSOR Interpretation D.OTaqueria-Pathology Fellow Report Kristian Dong 07/23/2021 TRUDI electronically Ilana Kulkarni 3:07 PM OPTOMETRY PROFESSOR signed by Breanna Received in formalin labeled with the patient's name, 07/23/2021 PDRM Description: medical record number, and left lateral back, mid is a 3:07 PM OPTOMETRY PROFESSOR 1.2 x 0.8 x 0.1 cm pale cano-white skin shave biopsy. ??There is a 0.9 x 0.5 cm pale cano-brown pigmented slightly raised lesion with irregular borders eccentrically located on skin surface. ??The specimen is serially sectioned and submitted in cassette A1. ??Additionally received in the same container is a 0.7 x 0.2 x 0.1 cm pale cano-white skin shave biopsy. ??There is a 0.4 x 0.1 cm pale cano pigmented slightly raised lesion with irregular borders eccentrically located on the skin surface and abutting the periphery. The specimen is submitted en toto in cassette A1. Grossed by ORLY. Interpetation FINAL DIAGNOSIS 07/23/2021 PDRM A. ??DermPath Consult Wet Tissue; Left lateral back, mid, 3:07 PM OPTOMETRY PROFESSOR Skin shave biopsy: ??Pigmented seborrheic keratosis Specimen Anatomical Collection Method Collection Time Receive d Time (Source) Location / / Volume Laterality Tissue 07/17/2021 1:04 PM 2 9:11 OPTOMETRY PROFESSOR AM OPTOMETRY PROFESSOR Narrative This result has an attachment that is no t available. Finn Quinonez M.D. LAB PATH DERM ORDERABLES Performing Organization Address City/State/ZIP Code Phon e Number [facility] - [address] [place], [place] [address] [place] [address] [facility] [address] documented in this encounter Visit Diagnoses Diagnosis Tumor Skin Uncertain Behavior - Primary Nevi Multiple Keratosis Seborrheic documented in this encounter
--- OUTSIDE RECORDS SUMMARY | 2022-02-05 14:45 | XMS_ITS | Encounter Summary ---
:1940 Author Organization [facility] Address [address] [place] [id number] Care Team Providers Name Role Phone Unavailable Primary Care Provider Unavailable Reason for Visit Reason Comments Lesion Outpatient (Routine) - Closed Specialty Diagnoses / Procedures Referred By Contact Refer red To Contact Dermatology Finn Quinonez M.D . [facility] Region [address] [place] [phone] Referral ID Status Reason Start Date Expiration Date Visits Requ ested Visits Authorized [id number] Closed 02/19/2021 02/19/2022 1 1 Encounter Details Date Type Department Care Team Description 04/23/2021 Office Visit Department of Finn Quinonez, Tumor Skin Head Uncertain Behavior (Primary Dx); Dermatology in [place] Preciado Tumor Skin Uncertain Behavior [place], [place] [address] [phone] Social History Tobacco Use Types Packs/Day Years Used Date Smoking Tobacco: Never Cigarettes Smokeless Tobacco: Never Sex Assigned at Date Recorded Not on file documented as of this encounter Progress Notes Finn Quinonez M.D. - 04/23/2021 2:30 PM CDT SUBJECTIVE CHIEF COMPLAINT / REASON FOR VISIT Recheck lesion x 1 HISTORY OF PRESENT ILLNESS Rubi Mota is a pleasant 80 y.o. female who follows up for recheck of a lesion just proximal to the distal tip of tongue. The patient was last seen by me in Dermatology clinic on 02/19/21. We discussed that the appeared compatible with a papillomatous lesion and resembled a seborrheic keratosis, although it was unusual to have a seborrheic keratosis involving the tongue. We discussed the lesion could also represent a benign focal hyperkeratosis/papilloma but did not represent black hairy tonguediagnosis whatsoever. We discussed treatment options which included observation vs having her dentist perform a biopsy. We preferred observation. Today, she states that the lesion involving the distal tongue has not changed and remains asymptomatic. The patient also has concerns today for a lesion involving the right cheek. She has noticed this lesion for about 4-6 weeks. The lesion initially grew in size although has remained stable since then. She tried multiple topical treatments, including Nystatin, bacitracin and hydrocortisone with no improvement. She denies any associated itching or bleeding. The patient has a history of??multiple non-melanoma skin cancers, most recently squamous cell carcinoma involving the chest treated by her??primary care provider in 2013.??She denies a personal or family history for melanoma.??She uses sunscreen. MEDICAL HISTORY 1.??Chest: History of squamous cell carcinoma, treated by her primary care physician in 2013 2. Left lower eyelid: History of basal cell carcinoma, removed elsewhere in approximately 2002 3. Negative for melanoma ?? FAMILY HISTORY Negative for melanoma OBJECTIVE PHYSICAL EXAMINATION General: Awake, alert, in no acute distress, and with appropriate affect. Skin: Limited skin exam done today. Examination just proximal to the distal tip of the tongue reveals a 2 x 1 mm light-brown macule thatis slightly verrucous. There is no infiltration or induration. Examination of the right cheek (lower medial) reveals a 3 x 4 mm whitish-pink slightly firm cystic papule, likely representing a cyst although I cannot entirely rule out a basal cell carcinoma. ASSESSMENT / PLAN #1 Just proximal to distal tip of tongue: Benign-appearing slightly papillomatous/hyperkeratosis lesion The benign nature of the skin lesion(s) was discussed with the patient. No treatment is required. I recommend continued observation. Should this lesion change in size, color, texture, or shape or develop symptoms such as itching or bleeding, I recommend an immediate return visit for reassessment. Follow up in 3 months for a recheck of the stated lesion(s). #2 Right cheek (lower medial): Probable cyst, rule out basal cell carcinoma We recommend a shave biopsy of the right cheek (lower medial). Photograph taken today with patient'sverbal consent. We will correspond as to the results and if any further treatment is needed. PROCEDURAL PAUSE: Procedural pause conducted to verify: correct patient identity, procedure to be performed, and as applicable, correct side and site, correct patient position, and availability of implants, special equipment or special requirements. PROCEDURE DETAILS: Shave biopsy. We explained the potential diagnosis and recommended that we obtain a biopsy. The risks and benefitsof the procedure were discussed, and the patient consented to these procedures. The patient denies any allergies to local anesthetics. Using 1% lidocaine with epinephrine for local anesthesia, a shave biopsy was obtained from the right cheek (lower medial). Biopsy submitted to Dermatopathology for H&E. Special stains will be performed as indicated. The bleeding was well controlled with application of aluminum chloride. Dressing was applied, and wound care instructions were explained. Biopsy results and any further recommendations will be communicated to the patient by letter. Patient given pamphlet [id number]. Discussed the risks, benefits, alternatives, and the necessity of other members of the healthcare team participating in the procedure. All questions answered and consent given. PATIENT EDUCATION: Ready to learn. No apparent learning barriers were identified. Learning preferences include listening. Explained diagnosis and treatment plan; patient/guardian of patient expressed understanding of thecontent. By signing my name below, I, Qamar Grande, attest that this documentation has been prepared under thedirection and in the presence of Finn Quinonez M.D. Electronically Signed: carolyne Sims. 04/23/2021. 3:04 PM CDT. Finn Cleary M.D., personally performed the services described in this documentation. All medical record entries made by the scribe were at my direction and in my presence. I have reviewed the chart and discharge instructions (if applicable) and agree that the record reflects my personal performance and is accurate and complete. Finn Quinonez M.D. documented in this encounter Miscellaneous Notes Result Encounter Note - Finn Quinonez M.D. - 05/06/2021 4:59 PM CST Right lower medial cheek: Actinic keratosis with dermal granulomatous inflammation already treated letter DENTIAL AIDE documented in this encounter Plan of Treatment Upcoming Encounters Date Type Specialty Care Team Description 03/05/2022 Office Visit Dermatology Finn Quinonez M.D. [address] [place], [place] [phone] (Wo rk) documented as of this encounter Procedures Procedure Name Priority Date/Time Associated Comments Diagnosis DERMATOPATHOLOGY CONSULT Routine 04/23/2021 3:10 Tumor Skin He ad Results for this PM CDT Uncertain Behavior procedure are in the results section. documented in this encounter Results Dermatopathology Consult (04/23/2021 3:10 PM CDT) Component Value Ref Test Analysis Performed Pathologis t Range Method Time At Signature 04/30/2021 PDRM 1:21 PM CDT Participated in Alvaro Franklin 04/30/2021 PDRM the , 1:21 PM CDT Interpretation D.OTaqueria-Pathology Fellow Report Mary Hanna, 04/30/2021 TRUDI electronicgeoff Preciado 1:21 PM CDT signed by Breanna Received in formalin labeled with patient's name, medical 04/30/2021 PDRM Description: record number and right lower medial cheek is a 0.4 x 0.3 1:21 PM CDT x 0.1 cm pale cano skin shave biopsy. ??There is a minute pale cano-brown lesion with ill-defined borders eccentrically located the skin surface. ??The specimen is bisected and submitted entirely in cassette A1. ??Grossed by [place]. Addendum GMS stain is unremarkable. 04/30/2021 PD RM 2:43 PM CDT Signed by Mary Hanna M.D. 04/30/2021 2:43 PM Comment: REVISED RESULTS Interpetation FINAL DIAGNOSIS 04/30/2021 2:43 PM C DT PDRM A. ??DermPath Consult Wet Tissue; Right lower medial cheek, Skin shave biopsy: ??Actinic keratosis with dermal granulomatous inflammation COMMENT A GMS stain has been ordered and an addendum report will be issued upon its review. Specimen Anatomical Collection Method Collection Time Receive d Time (Source) Location / / Volume Laterality Tissue 04/23/2021 3:10 PM CDT 10:00 AM CDT Narrative This result has an attachment that is no t available. Finn Quinonez M.D. LAB PATH DERM ORDERABLES Performing Organization Address City/State/ZIP Code Phon e Number [facility] - [address] [place], [place] [address] [facility] [place] [address] [facility] [address] documented in this encounter Visit Diagnoses Diagnosis Tumor Skin Head Uncertain Behavior - Diana yolette Tumor Skin Uncertain Behavior documented in this encounter
--- OUTSIDE RECORDS SUMMARY | 2022-02-05 14:45 | XMS_ITS | Encounter Summary ---
:1940 Author Organization [facility] Address [address] [place] [address] Care Team Providers Name Role Phone Unavailable Primary Care Provider Unavailable Encounter Details Date Type Department Care Team Description 02/19/2021 Ancillary Procedure Department of Dermatology Social History Tobacco Use Types Packs/Day Years Used Date Smoking Tobacco: Never Cigarettes Smokeless Tobacco: Never Sex Assigned at Date Recorded Not on file documented as of this encounter Plan of Treatment Upcoming Encounters Date Type Specialty Care Team Description 03/05/2022 Office Visit Dermatology Finn Quinonez M.D. [address] [place], [place] [phone] (Wo rk) documented as of this encounter Procedures Procedure Name Priority Date/Time Associated Comments Diagnosis DERMATOLOGY IMAGE Routine 02/19/2021 11:50 Result s for this EXAM AM CDT procedure are i n the results section. documented in this encounter Results Tongue 515-Dermatology Image Exam (02/19/2021 11:50 AM CDT) Specimen (Source) Anatomical Collection Method Collection Time Re ceived Time Location / / Volume Laterality 02/19/2021 11:49 AM CDT Narrative [facility] - 02/19/2021 11:51 AM CDT This order has been created and [...]
--- OUTSIDE RECORDS SUMMARY | 2022-02-05 14:45 | XMS_ITS | Encounter Summary ---
:1940 Author Organization [facility] Address [address] [place] [address] Care Team Providers Name Role Phone Unavailable Primary Care Provider Unavailable Reason for Visit Reason Comments Skin Check Appointment Request (Routine) - Closed Specialty Diagnoses / Procedures Referred By Contact Refer red To Contact Dermatology Referral ID Status Reason Start Date Expiration Date Visits Requ ested Visits Authorized [id number] Closed 08/28/2019 08/27/2020 1 1 Encounter Details Date Type Department Care Team Description 01/10/2020 Office Visit Department of Finn Quinonez, Keratosis Actinic (Primary Dx); Dermatology in [place] Prec[place]ado Keratosis Seborrheic; [place], [place] [address] [facility] Nevi Multiple [address] [place] [phone] Social History Tobacco Use Types Packs/Day Years Used Date Smoking Tobacco: Never Cigarettes Smokeless Tobacco: Never Sex Assigned at Date Recorded Not on file documented as of this encounter Progress Notes Finn Quinonez M.D. - 01/10/2020 9:00 AM CDT SUBJECTIVE CHIEF COMPLAINT / REASON FOR VISIT Skin cancer recheck HISTORY OF PRESENT ILLNESS Ms. Rubi Mota is a 79 y.o. female who presents today for a full skin cancer screening examination. The patient has a history of a squamous cell carcinoma involving her left chest removed surgically removed in 2013 as well as a basal cell carcinoma involving the left lower eyelid removed elsewhere in 2002. The patient denies a personal or family history for melanoma. Allergies Allergen Reactions ??? Black [place] Hives ??? Codeine GI intolerance nausea and [...] bilateral upper extremities, and bilateral lower extremities. She has a total of 3 actinic keratosis today including 1 on the left earhelix, 1 involving the right cheek, and 1 involving the right forearm. Examination of her skin otherwise reveals several seborrheic keratoses and angiomas. She also has some benign nevi. No evidence for recurrence of previous nonmelanoma skin cancers. She also had some angiomas involving her face and trunk. No suspicious lesions for skin cancer today. ASSESSMENT / PLAN #1 Actinic keratosis CONSENT Discussed the risks, benefits, alternatives, and the necessity of other members of the healthcare team participating in the procedure. All questions answered and consent given. PROCEDURE INFORMATION Given the precancerous nature of this lesion(s), treatment is medically indicated. After discussion of the risks, benefits and alternatives to treatment with cryotherapy, informed consent was obtained.We treated a total of 3 lesion(s) with two 10-second freeze-thaw cycles of liquid nitrogen cryotherapy. The patient tolerated the procedure well. Aftercare instructions were provided in written and verbal form to the patient. Should any of these lesions recur, the patient should return for biopsy or further evaluation. #2 Multiple benign-appearing nevi The ABCDE criteria for melanoma was reviewed with the patient. None of the patient's nevi reach the clinical threshold for biopsy. I recommend continued sun protection, self-skin examinations, and observation. Should any of the patient's nevi change in size, color, texture, or shape or develop symptoms such as itching or bleeding, I recommend an immediate return visit for reassessment. #3 Seborrheic keratosis The benign nature of the skin lesion(s) was discussed with the patient. No treatment is required. I recommend continued observation. Should symptoms or changes develop related to this condition, I would recommend a return visit for reassessment. #4 History of nonmelanoma skin cancers with no evidence for recurrence Follow-up in 6 months or immediately if any new or changing lesions are noted. PATIENT EDUCATION: Ready to learn. No apparent learning barriers were identified. Learning preferences include listening. Explained diagnosis and treatment plan; patient/guardian of patient expressed understanding of thecontent. documented in this encounter Plan of Treatment Upcoming Encounters Date Type Specialty Care Team Description 03/05/2022 Office Visit Dermatology Finn Quinonez M.D. [address] [place], [place] [phone] (Wo rk) documented as of this encounter Visit Diagnoses Diagnosis Keratosis Actinic - Primary Keratosis Seborrheic Nevi Multiple documented in this encounter
--- OUTSIDE RECORDS SUMMARY | 2022-02-05 14:45 | XMS_ITS | Encounter Summary ---
:1940 Author Organization [facility] Address [address] [place] [id number] Care Team Providers Name Role Phone Unavailable Primary Care Provider Unavailable Reason for Referral Outpatient (Routine) - Closed Specialty Diagnoses / Procedures Referred By Contact Refer red To Contact Dermatology Finn Quinonez M.D . [facility] [address] [place] [phone] Referral ID Status Reason Start Date Expiration Date Visits Requ ested Visits Authorized [id number] Closed 10/02/2020 10/02/2021 1 1 Scheduling Instructions Skin lesions and dry skin Reason for Visit Reason Comments Follow-up Outpatient (Routine) - Closed Specialty Diagnoses / Procedures Referred By Contact Refer red To Contact Dermatology Finn Quinonez M.D . [facility] [address] [place] [phone] Referral ID Status Reason Start Date Expiration Date Visits Requ ested Visits Authorized [id number] Closed 07/11/2020 07/11/2021 1 1 Encounter Details Date Type Department Care Team Description 10/02/2020 Office Visit Department of Finn Quinonez, Xerosis (P rimary Dx) [facility] [address] [phone] Social History Tobacco Use Types Packs/Day Years Used Date Smoking Tobacco: Never Cigarettes Smokeless Tobacco: Never Sex Assigned at Date Recorded Not on file documented as of this encounter Progress Notes Finn Quinonez M.D. - 10/02/2020 1:45 PM CDT SUBJECTIVE CHIEF COMPLAINT / REASON FOR VISIT Recheck dry skin vs AK involving the area lateral to left eye HISTORY OF PRESENT ILLNESS Rubi Mota is a pleasant 80 y.o. female who follows up for a recheck of dry skin vs AK involving the area lateral to the left eye. The patient was last seen by me in Dermatology clinic on 07/11/2020 and at that time I asked her to apply an over the counter moisturizing cream like Vanicream twicedaily for one month. If it continues to persist today we may consider treatment with cryotherapy. Today she states she applied moisturizer to the area twice daily and feels the dryness and scaling has resolved. MEDICAL HISTORY OBJECTIVE PHYSICAL EXAMINATION General: Awake, alert, in no acute distress, and with appropriate affect. Skin: Limited skin exam done today. Examination of the area lateral to the left eye reveals no evidence for previous mild erythema and scaling, and it has completely resolved. ASSESSMENT / PLAN #1 Lateral to left eye: History of dry macule, resolved Previous dry macule has completely resolved and no further treatment is required at this time. Follow up as needed for any new or changing concerns. If it reoccurs, she should start the Vanicream dailyagain. Follow up in 3 months for a full skin check. PATIENT EDUCATION: Ready to learn. No apparent learning barriers were identified. Learning preferences include listening. Explained diagnosis and treatment plan; patient/guardian of patient expressed understanding of thecontent. By signing my name below, INellie, attest that this documentation has been prepared underthe direction and in the presence of Finn Quinonez M.D. Electronically Signed: carolyne Rojas. 10/02/2020 Finn Cleary M.D., personally performed the services described in this documentation. All medical record entries made by the scribe were at my direction and in my presence. I have reviewed the chart and discharge instructions (if applicable) and agree that the record reflects my personal performance and is accurate and complete. Finn Quinonez M.D. 10/02 documented in this encounter Plan of Treatment Upcoming Encounters Date Type Specialty Care Team Description 03/05/2022 Office Visit Dermatology Finn Quinonez M.D. [address] [place] [phone] (Wo rk) Scheduled Referrals Name Type Priority Associated Order Schedule Diagnoses Dermatology office Outpatient Referral Routine Ex pected: visit (clinic) 01/01/2021 (Approximate), Expires: 10/03/2023 documented as of this encounter Visit Diagnoses Diagnosis Xerosis - Primary documented in this encounter
--- OUTSIDE RECORDS SUMMARY | 2022-02-05 14:45 | XMS_ITS | Encounter Summary ---
:1940 Author Organization [facility] Address [address] [place] [address] Care Team Providers Name Role Phone Unavailable Primary Care Provider Unavailable Encounter Details Date Type Department Care Team Description 10/06/2017 Hospital Encounter HX RST DERM Lora Hernández M.D. [address] [place], [place] [phone] (Wo rk) Social History Tobacco Use Types Packs/Day Years Used Date Smoking Tobacco: Never Cigarettes Smokeless Tobacco: Never Sex Assigned at Date Recorded Not on file documented as of this encounter Medications at Time of Discharge Medication Sig Dispensed Refills Start Date End Date amLODIPine (for_NORVASC) Take 5 mg by mouth 0 5 mg tablet daily. atorvastatin Take 20 mg by mouth 2 [...] by mouth daily. 0 04/01/2016 (for_MULTI-DELYN) liquid [id number]-[id number] Take 1 capsule by 0 08/2015 OIL ORAL mouth daily. omeprazole (PriLOSEC) 40 Take 40 mg by mouth. 0 0 10/06/2017 mg capsule raNITIdine (for_ZANTAC) Take 150 mg by mouth 3 01/25/2019 150 mg tablet 2 (two) times a day. documented as of this encounter Plan of Treatment Upcoming Encounters Date Type Specialty Care Team Description 03/05/2022 Office Visit Dermatology Finn Quinonez M.D. [address] [place], [place] [phone] (Wo rk) documented as of this encounter Visit Diagnoses Not on filedocumented in this encounter
--- OUTSIDE RECORDS SUMMARY | 2022-02-05 14:45 | XMS_ITS | Encounter Summary ---
:1940 Author Organization [facility] Address [address] [place] [address] Care Team Providers Name Role Phone Unavailable Primary Care Provider Unavailable Reason for Visit Reason Comments Follow-up Patient here for recheck on left foot injection, states injection done 04/14 was more effective beau t the injection 05/16. Also c/o bruising to left great toe. Appointment Request (Routine) - Closed Specialty Diagnoses / Procedures Referred By Contact Refer red To Contact Orthopedic Surgery Diagnoses FOOT ISSUE Mari Tinajero, [facility] Procedures Office Visit D.P.M. [address] [place] [phone] Referral ID Status Reason Start Date Expiration Date Visits Requ ested Visits Authorized [id number] Closed 07/23/2017 01/19/2018 1 1 Encounter Details Date Type Department Care Team Description 09/08/2017 Office Visit Department of Mari Tinajero Neuroma ( Primary Dx); Orthopedic Surgery in [place], D.P.M. Pain Limb Generalized Reginaldo [place], [address] [place] [address] [address] [place] [phone] (Work) [phone] Social History Tobacco Use Types Packs/Day Years Used Date Smoking Tobacco: Former Smokeless Tobacco: Never Sex Assigned at Date Recorded Not on file documented as of this encounter Progress Notes Mari Tinajero D.PTaqueriaMTaqueria - 09/08/2017 9:45 AM CDT CHIEF COMPLAINT / REASON FOR VISIT Rubi Mota is a 77 y.o. female who presents for follow-up of Follow-up of the Left Foot (Patient here for recheck on left foot injection, states injection done 04/14 was more effective that the injection 05/16. Also c/o bruising to left great toe.) and is under the care of No primary care provider on file.. HISTORY OF PRESENT ILLNESS Patient presents for recurrent pain of the left plantar forefoot and also for concern of discoloration of the left great toenail, that she states is growing out, and improving. Patient has orthotics and wears them consistently. She had a recent trip to [place] where she did alot a walking with the use of her old orthotics and that may have been what flared up her left foot pain. She is also currently taking naproxen for her back pain and states that helps significantly with her foot as well. She had a recent injection into the left 2nd intermetatarsal space in April of 2017 and prior to that 1 year before, in March of 2016. REVIEW OF SYSTEMS Review of Systems Nondiabetic OBJECTIVE PHYSICAL EXAM Ortho Exam DP PT pulse palpable to the left foot. Left 2nd intermetatarsal space is painful to palpation with apalpable nodule that is present. There is no dorsal pain or signs of stress fracture. There is no erythema ecchymosis or signs of acute process. There is a mild 2nd flexible hammertoe deformity presentas well. Patient rates her pain 5/10 on an average day. ASSESSMENT / PLAN #1 Neuroma #2 Pain Limb Generalized I recommended 2nd intermetatarsal space cortisone injection. The rationale for the procedure was discussed. Risks, benefits, and alternative treatments were discussed as well. The patient was given theopportunity to ask appropriate questions, and does understand the risks, benefits, and alternatives.The patient preference agrees with my recommendation and therefore we will proceed as planned. Following signed informed consent, the left 2nd intermetatarsal space was injected with 3 cc of a 1-1 to 1 mix of 1% xylocaine plain, dexamethasone phosphate, and Kenalog 40. Patient to continue use ofher orthotics and follow-up if she has ongoing problems or issues. documented in this encounter Plan of Treatment Upcoming Encounters Date Type Specialty Care Team Description 03/05/2022 Office Visit Dermatology Finn Quinonez M.D. [address] [place], [place] [phone] (Wo rk) documented as of this encounter Visit Diagnoses Diagnosis Neuroma - Primary Pain Limb Generalized documented in this encounter
--- OUTSIDE RECORDS SUMMARY | 2022-02-05 14:45 | XMS_ITS | Encounter Summary ---
:1940 Author Organization [facility] Address [address] [place] [address] Care Team Providers Name Role Phone Unavailable Primary Care Provider Unavailable Encounter Details Date Type Department Care Team Description 04/01/2016 Hospital Encounter [facility]X [facility] Mari Tinajero D.P.M. [address] [place] [phone] (Wo rk) Social History Tobacco Use Types Packs/Day Years Used Date Smoking Tobacco: Never Assessed Sex Assigned at Date Recorded Not on file documented as of this encounter Last Filed Vital Signs Vital Sign Reading Time Taken Comments Blood Pressure 132/76 04/01/2016 10:40 AM CDT Pulse 70 04/01/2016 10:40 AM CDT Temperature - - Respiratory Rate 16 04/01/2016 10:40 AM CDT Oxygen Saturation - - Inhaled Oxygen [...] by mouth daily. 0 04/01/2016 (for_MULTI-DELYN) liquid [id number]-LIMH Take 1 capsule by 0 08/2015 OIL ORAL mouth daily. documented as of this encounter Progress Notes Mari Tinajero D.P.M. - 04/01/2016 10:20 AM CDT [id number] Patient is a 75-year-old female seen for concern of left 2nd and 3rd digital pain and sub 2nd MTPJ pain. She has seen a couple different providers. Actually orthopedic surgeon recommended surgery. However she did not want to proceed with that route. 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 PHYSICAL EXAMINATION Neurovascular status intact to the left foot. Development of mild 2nd and 3rd digit hammertoe deformities is noted. There is pain to palpation sub 2nd MTPJ with some inflammation as compared to the contralateral limb. Patient states this has been going on for greater than 1 year. She does have insertswith a metatarsal pad that does help. 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 Subsequent capsulitis left sub 2nd metatarsophalangeal joint. PLAN: Due to the longstanding nature of her symptoms recommended that we proceed with an injection. She was in agreement. Informed consent was obtained and signed. Injection of 0.5 mL of Kenalog 41, 1 mL of dexamethasone phosphate, and 1 mL of 1% Xylocaine plain was infiltrated left sub 2nd MTPJ region. Patient instructed on icing and avoiding any type of pressure on her forefoot for some time. To follow up if no improvement, otherwise as needed. Mari Tinajero D.P.M./joss Electronically Signed By: MARI TINAJERO DPM On: 04/08/2016 10:56 AM Source: [facility] [id number] Document Id: [id number] documented in this encounter Miscellaneous Notes Miscellaneous - Mari Tinajero D.P.M. - 04/01/2016 11:08 AM CDT Ambulatory Discharge Medication List [address] [place] [phone] Visit Information Name: RUBI MOTA [facility] Number: [id number] Visit Date: 04/01/2016 11:08:59 Attending Provider: MARI TINAJERO DPM Primary Care [...] the Following Medications: Medication list as of 04-01-16 11:08 Attention: If you have any medications at [...] Electronically Signed By: MARI TINAJERO DPM Signed On:01-APR-2016 11:08:57 Additional Information: Source: [facility] POWERCHART Document Id: [id number] Miscellaneous - Mari Tinajero D.PTaqueriaMTaqueria - 04/01/2016 11:08 AM CDT Ambulatory Patient Summary [address] [id number] Visit Information Name: RUBI MOTA [facility] Number: [id number] Current Date: 04/01/2016 11:08:59 Physicians Attending Provider: MARI TINAJERO DPM Primary Care Provider: PCP, HALLIE RUBI MOTA has been given the following [...] the Following Medications: Medication list as of 04-01-16 11:08 Attention: If you have any medications at [...] Electronically Signed By: MARI TINAJERO DPM Signed On:01-APR-2016 11:08:57 Your Allergies & Intolerances Substance Reaction Symptoms Category Comments No Known Medication Allergies Drug N/V from narcotics Your Problem List Problem Status Onset Comments No Problems found Your Upcoming Appointments Date Time Location Provider [...] if you dont have one. Go to [email or web address] and click on Create Your Account. Then, follow the directions to complete the online form. Youll be asked for your [facility] number which you can find at the top of this document. Your Goals/Additional instructions: Source: [facility] POWERCHART Document Id: [id number] Miscellaneous - Charlotte Aceves R.N. 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 Intake/History Entered On: 04/01/2016 10:44 CDT Performed On: 04/01/2016 10:40 CDT by CHARLOTTE ACEVES auto body repair teacher Chief Complaint : left 2nd and 3rd digit pain for more than 1 year Temperature Core : 36.6 DegC(Converted to: 97.9 DegF) Peripheral Pulse Rate : 70 /min Respiratory Rate : 16 /min Heart Rhythm : Regular Systolic Blood Pressure : 132 mmHg Diastolic Blood Pressure : 76 mmHg NIBP Mean : 95 mmHg BP Location : Left upper extremity Blood Pressure Cuff Size : Regular SpO2 : 98 % CHARLOTTE ACEVES RN - 04/01/2016 10:40 CDT General Info Information Given By : Patient Preferred Communication Mode : Verbal Languages : [place] Is Patient Female and 13-50 no hysterectomy : No CHARLOTTE ACEVES RN - 04/01/2016 10:40 CDT Subjective Pain Symptoms : Yes CHARLOTTE ACEVES RN - 04/01/2016 10:40 CDT Pain Scale Pain Scale Verbal 0-10 : Open CHARLOTTE ACEVES RN - 04/01/2016 10:40 CDT Pain Pain Assessment Grid Pain 1 Location : Foot CHARLOTTE ACEVES RN - 04/01/2016 10:40 CDT Dependent Habits Exposure to Tobacco Smoke : Other: former Smoking Status : Former smoker Tobacco 2A : Yes Tobacco Use/Currently Using : No Tobacco Use/Last 30 Days : No Tobacco Use/Last 12 months : No CHARLOTTE ACEVES RN - 04/01/2016 10:40 CDT Source: [facility] POWERCHART Document Id: [id number] CDT!33 documented in this encounter Plan of Treatment Upcoming Encounters Date Type Specialty Care Team Description 03/05/2022 Office Visit Dermatology Finn Quinonez M.D. [address] [place] [phone] (Wo rk) documented as of this encounter Visit Diagnoses Not on filedocumented in this encounter
--- OUTSIDE RECORDS SUMMARY | 2022-02-05 14:45 | XMS_ITS | Encounter Summary ---
:1940 Author Organization [facility] Address [address] [place] [address] Care Team Providers Name Role Phone Unavailable Primary Care Provider Unavailable Reason for Referral Outpatient (Routine) - Closed Specialty Diagnoses / Procedures Referred By Contact Refer red To Contact Dermatology Finn Quinonez M.D . [facility] Region [address] [place] [phone] Referral ID Status Reason Start Date Expiration Date Visits Requ ested Visits Authorized [id number] Closed 02/19/2021 02/19/2022 1 1 Scheduling Instructions Recheck tongue lesion in 6-8 weeks Reason for Visit Reason Comments Suspicious Skin Lesion Outpatient (Routine) - Closed Specialty Diagnoses / Procedures Referred By Contact Refer red To Contact Dermatology Finn Quinonez M.D . [facility] [address] [place] [phone] Referral ID Status Reason Start Date Expiration Date Visits Requ ested Visits Authorized [id number] Closed 10/02/2020 10/02/2021 1 1 Encounter Details Date Type Department Care Team Description 02/19/2021 Office Visit Department of Finn Quinonez Lesion Ton gue (Primary Dermatology in [place] ) [place], [place] [address] [place] [phone] Social History Tobacco Use Types Packs/Day Years Used Date Smoking Tobacco: Never Cigarettes Smokeless Tobacco: Never Sex Assigned at Date Recorded Not on file documented as of this encounter Progress Notes Finn Quinonez M.D. - 02/19/2021 11:30 AM CDT SUBJECTIVE CHIEF COMPLAINT / REASON FOR VISIT Lesion x 1 HISTORY OF PRESENT ILLNESS Rubi Mota is a pleasant 80 y.o. female who follows up for evaluation of a lesion involving the tongue. The patient was last seen by me in Dermatology clinic on 01/08/21. The lesion was first noticed by her dentist on February 07 during a routine check-up. The lesion likely has been present for 3-6 months, as her dentist had not noticed this lesion previously and she sees her dentist every 3-6 months at most. She denies any itching or bleeding. The lesion has not been changing. She denies a personal history of oral cancer. She does not smoke or chew tobacco. 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 She denies a personal or family history for melanoma. She uses sunscreen. MEDICAL HISTORY 1.??Chest: History of [...] tongue reveals a 2 x 1 mm light brown macule thatis slightly verrucous. There is no infiltration or induration. Examination of the oral cavity otherwise is unremarkable. ASSESSMENT / PLAN #1 Just proximal to distal tip of tongue: Benign-looking slightly papillomatous lesion On clinical exam today, the lesion just proximal to the distal tip of the tongue does appear compatible with a papillomatous lesion and resembles a seborrheic keratosis although it is unusual to have aSK involving the tongue. It could also represent a benign focal hyperkeratosis like you would see invery early black hairy tongue but does not represent black hairy tongue diagnosis whatsoever. I discussed with her that we could simply observe closely or have her return to her dentist for a biopsy but I am favoring continued observation. She is in agreement would prefer observing for now. Should this lesion change in size, color, texture, or shape or develop symptoms such as itching or bleeding, I r ecommend an immediate return visit for reassessment. Photograph(s) taken today. Follow up in 6-8 weeks for a recheck of the stated lesion. I will review the case with my colleagues in Dermatology who specializes in oral disease. If the lesion changes, I recommend following up with her dentist for a biopsy. She will do so. Otherwise, she will follow up here for recheck in 6-8 weeks. All questions answered PATIENT EDUCATION: Ready to learn. No apparent learning barriers were identified. Learning preferences include listening. Explained diagnosis and treatment plan; patient/guardian of patient expressed understanding of thecontent. By signing my name below, I, Qamar Grande, attest that this documentation has been prepared under thedirection and in the presence of Finn Quinonez M.D. Electronically Signed: carolyne Sims. 02/19/2021. 11:50 AM CDT. I, Finn Quinonez M.D., personally performed the services described in this documentation. All medical record entries made by the scribe were at my direction and in my presence. I have reviewed the chart and discharge instructions (if applicable) and agree that the record reflects my personal performance and is accurate and complete. Finn Quinonez M.D. documented in this encounter Plan of Treatment Upcoming Encounters Date Type Specialty Care Team Description 03/05/2022 Office Visit Dermatology Finn Quinonez M.D. [address] [place] [phone] (Wo rk) Scheduled Referrals Name Type Priority Associated Order Schedule Diagnoses Dermatology office Outpatient Referral Routine Ex pected: visit (clinic) 03/22/2021 (Approximate), Expires: 02/20/2024 documented as of this encounter Visit Diagnoses Diagnosis Lesion Tongue - Primary documented in this encounter
--- OUTSIDE RECORDS SUMMARY | 2022-02-05 14:45 | XMS_ITS | Encounter Summary ---
:1940 Author Organization [facility] Address [address] [place] [address] Care Team Providers Name Role Phone Unavailable Primary Care Provider Unavailable Encounter Details Date Type Department Care Team Description 07/15/2016 Hospital Encounter HX [facility] Mari Tinajero D.P.M. [address] [place] [phone] (Wo rk) Social History Tobacco Use Types Packs/Day Years Used Date Smoking Tobacco: Former Sex Assigned at Date Recorded Not on file documented as of this encounter Last Filed Vital Signs Vital Sign Reading Time Taken Comments Blood Pressure - - Pulse 78 07/15/2016 10:50 AM FISH STRAIGHTENER Temperature - - Respiratory Rate 16 07/15/2016 10:50 AM FISH STRAIGHTENER Oxygen Saturation - - Inhaled Oxygen Concentration [...] by mouth daily. 0 04/01/2016 (for_MULTI-DELYN) liquid [id number] Take 1 capsule by 0 08/2015 OIL ORAL mouth daily. documented as of this encounter Progress Notes Mari Tinajero D.P.M. - 07/15/2016 10:33 AM CST [id number] Patient is a 75-year-old female who presents for followup of left 2nd metatarsophalangeal joint capsulitis with previous injection and insole accommodation. She is having ongoing pain on her left foot dorsal aspect as well as laterally. PHYSICAL EXAMINATION She has very accommodative type of orthotics and I think that the pain that she is experiencing is probably from the lack of support from these so I recommended that we proceed with new custom-made more functional orthotics that will provide more support. Patient in agreement with this. Will make themwith a full top cover with a 2nd left MTPJ accommodation as well as a neuroma pad bilaterally that will be incorporated into the top cover. Currently she has no significant pain or inflammation of the 2nd MTPJ so I think the injection has been beneficial as well as the accommodation to her shoe insoleand now she is having these secondary issues. IMPRESSION/REPORT/PLAN Left foot pain. 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 PLAN: New orthotics as above. Patient will be notified upon receipt and merchandise pickup/receiving associate at that time. Will follow up again after wearing them for about 3 weeks so will follow up with her again in about 6 weeks. Patient understanding and happy with this plan. Follow up as above. Mari Tinajero D.P.M./joss Electronically Signed By: MARI TINAJERO DPM On: 07/23/2016 02:48 PM Source: [facility] MHSDOLBEYNONRADSYS Document Id: [id number] STRAIGHTENER documented in this encounter Miscellaneous Notes Miscellaneous - Mari Tinajero D.P.M. - 07/15/2016 12:22 PM CST Ambulatory Patient Summary [address] [place] [id number] Visit Information Name: HUGO RUBI DANY [facility] Number: [id number] Current Date: 07/15/2016 12:22:32 Physicians Attending Provider: MARI TINAJERO DPM Primary [...] the Following Medications: Medication list as of 07-15-16 12:22 Attention: If you have any medications at [...] Electronically Signed By: MARI TINAJERO DPM Signed On:15-JUL-2016 12:22:30 Your Allergies & Intolerances Substance Reaction Symptoms Category Comments No Known Medication Allergies Drug N/V from narcotics Your Problem List Problem Status Onset Comments .No Known Problems Active Your Upcoming Appointments Date Time Location Provider 08/26/2016 11:00 [facility] Podiatry Mari Ferreira DPM Attention: Contact your local Clinic if further [...] if you dont have one. Go to [email or web address] and click on Create Your Account. Then, follow the directions to complete the online form. Youll be asked for your [facility] number which you can find at the top of this document. Your Goals/Additional instructions: Source: [facility] POWERCHART Document Id: [id number] STRAIGHTENER Miscellaneous - Mari Tinaejro D.P.M. - 07/15/2016 12:22 PM CST Ambulatory Discharge Medication List [address] [id number] Visit Information Name: RUBI MOTA [facility] Number: [id number] Current Date: 07/15/2016 12:22:31 Attending Provider: MARI TINAJERO DPRonnie Primary Care [...] the Following Medications: Medication list as of 07-15-16 12:22 Attention: If you have any medications at [...] Electronically Signed By: MARI TINAJERO DPM Signed On:15-JUL-2016 12:22:30 Additional Information: [facility] Document Id: [id number] STRAIGHTENER Miscellaneous - Charlotte Aceves RSe - 07/15/2016 10:50 AM CST 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 Intake/History 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 Intake/History Entered On: 07/15/2016 10:54 FISH STRAIGHTENER Performed On: 07/15/2016 10:50 FISH STRAIGHTENER by CHARLOTTE ACEVES probation worker Chief Complaint : f/u left foot pain, last injection March Temperature Core : 36.6 DegC(Converted to: 97.9 DegF) Peripheral Pulse Rate : 78 /min Respiratory Rate : 16 /min Heart Rhythm : Regular BP Location : Left upper extremity Blood Pressure Cuff Size : Regular SpO2 : 99 % CHARLOTTE ACEVES RN - 07/15/2016 10:50 FISH STRAIGHTENER General Info Information Given By : Patient Preferred Communication Mode : Verbal Languages : Angolan Is Patient Female and 13-50 no hysterectomy : No CHARLOTTE ACEVES RN - 07/15/2016 10:50 FISH STRAIGHTENER Subjective Pain Symptoms : Yes CHARLOTTE ACEVES RN - 07/15/2016 10:50 FISH STRAIGHTENER Pain Scale Pain Scale Verbal 0-10 : Open CHARLOTTE ACEVES RN - 07/15/2016 10:50 FISH STRAIGHTENER Pain Pain Assessment Grid Pain 1 Location : Foot CHARLOTTE ACEVES RN - 07/15/2016 10:50 FISH STRAIGHTENER Dependent Habits Exposure to Tobacco Smoke : Other: former Smoking Status : Former smoker Tobacco 2A : Yes Tobacco Use/Currently Using : No Tobacco Use/Last 30 Days : No Tobacco Use/Last 12 months : No CHARLOTTE ACEVES RN - 07/15/2016 10:50 FISH STRAIGHTENER [facility] Document Id: [id number] STRAIGHTENER!30 STRAIGHTENER documented in this encounter Plan of Treatment Upcoming Encounters Date Type Specialty Care Team Description 03/05/2022 Office Visit Dermatology Finn Quinonez M.D. [address] [place], [place] [phone] (Wo rk) documented as of this encounter Visit Diagnoses Not on filedocumented in this encounter
--- OUTSIDE RECORDS SUMMARY | 2022-02-05 14:45 | XMS_ITS | Encounter Summary ---
:1940 Author Organization [facility] Address [address] [place] [address] Care Team Providers Name Role Phone Unavailable Primary Care Provider Unavailable Reason for Visit Reason Comments Skin Check Outpatient (Routine) - Closed Specialty Diagnoses / Procedures Referred By Contact Refer red To Contact Dermatology Finn Quinonez M.D . [facility] Region [address] [place] [phone] Referral ID Status Reason Start Date Expiration Date Visits Requ ested Visits Authorized [id number] Closed 10/02/2020 10/02/2021 1 1 Encounter Details Date Type Department Care Team Description 01/08/2021 Office Visit Department of Finn Quinonez, Venita d[place] (Primary Dx); Dermatology in [place] Keratosis Seborrheic [place], [place] [address] [place] [phone] Social History Tobacco Use Types Packs/Day Years Used Date Smoking Tobacco: Never Cigarettes Smokeless Tobacco: Never Sex Assigned at Date Recorded Not on file documented as of this encounter Progress Notes Finn Quinonez M.D. - 01/08/2021 3:15 PM CDT SUBJECTIVE CHIEF COMPLAINT / REASON FOR VISIT Skin cancer recheck HISTORY OF PRESENT ILLNESS Ms. Rubi Mota is a 80 y.o. female who presents today for a full skin cancer screening examination. The patient was last seen by me in Dermatology clinic on 10/02/20 The patient has a history of multiple non melanoma skin cancers, most recently scc involving the chest, treated by her primary care physician in 2013. The patient denies a personal or family history for melanoma. Today she would like an evaluation of several skin lesions involving the left ear lobe, corners of the mouth, left and right cheek, and left shoulder. Allergies Allergen Reactions ??? Black [place] Hives ??? Codeine GI intolerance nausea and [...] My scribe Hali was present for the exam today. Examination of the chest and the left lower eyelid reveals no clinical evidence for local recurrenceof multiple non melanoma skin cancers x 2. Examination of the left cheek reveals a SK. Examination of the right medial cheek reveals a dermal nevus. Examination of the left shoulder reveals a SK. Examination of the corners of the mouth reveals no evidence for any rash currently, but given history was probable perleche. Examination of the area inferior to right axilla reveals a dilated pore. Examination of face, trunk, and extremities reveals multiple benign appearing nevi and lentigines, and multiple SKs. Examination of the left ear lobe reveals no evidence for any lesion or rash and I have asked her notto put Neosporin as that will cause an allergic contact dermatitis but rather use Vaseline in the future and and Sarna lotion for any itching in follow-up as need. Examination today reveals no suspicious lesions for skin cancer. ASSESSMENT / PLAN #1 Chest, left lower eyelid: History of multiple non melanoma skin cancers x 2, no recurrence Examination today reveals no clinical evidence of recurrence of non-melanoma skin cancer. Follow up immediately if changes are noticed during monthly self examination. Otherwise followup in 6-12 months. 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 I have prescribed ketoconazole cream to be applied sparingly 1-2 times daily for a few weeks bj time. #3 Face, trunk, and extremities: Multiple benign appearing nevi and [...] an immediate return visit for reassessment. #4 Face, trunk, and extremities: Seborrheic keratosis The benign nature of the skin lesion(s) was discussed with the patient. No treatment is required. I recommend continued observation. Should symptoms or changes develop related to this condition, I would recommend a return visit for reassessment. #5 Inferior to right axilla: Dilated pore The benign nature of the skin lesion(s) was discussed with the patient. No treatment is required at this time. I recommend continued observation. Should symptoms or [...] Finn Quinonez M.D. Electronically Signed: carolyne Rojas. Finn Cleary M.D., personally performed the services [...] 03/05/2022 Office Visit Dermatology Finn Quinonez M.D. [address] [place] [phone] (Wo rk) documented as of this encounter Visit Diagnoses Diagnosis Nevi Multiple - Primary Keratosis Seborrheic documented in this encounter
--- OUTSIDE RECORDS SUMMARY | 2022-02-05 14:45 | XMS_ITS | Encounter Summary ---
:1939 Author Organization [facility] Address [address] [place] [address] Care Team Providers Name Role Phone Unavailable Primary Care Provider Unavailable Reason for Visit Reason Comments Question Encounter Details Date Type Department Care Team Description 07/12/2020 Clinical Communication Department of [facility], Pcp Qu estion Dermatology in [address] [phone] Social History Tobacco Use Types Packs/Day Years Used Date Smoking Tobacco: Never Cigarettes Smokeless Tobacco: Never Sex Assigned at Date Recorded Not on file documented as of this encounter Miscellaneous Notes Telephone Encounter - Magalys Valverde L.P.N. - 07/13/2020 9:32 AM CST I spoke to the patient and relayed the below information to her. She will continue to check around on the torres. All questions were answered. Please let her know that that Metrogel is going to be the cheapest topical medication for rosacea but she does not have to treat at this time as she only has dilation of blood vessels on her cheeks currently in no inflammatory lesions. ??Thanks PED TOPPING MIXER Telephone Encounter - Estephanie Aiken - 07/13/2020 9:16 AM CST Pt returned your call, please try again when you have time. PED TOPPING MIXER Telephone Encounter - Magalys Valverde L.P.NTaqueria - 07/12/2020 2:45 PM CST I left a message for the patient to call back. PED TOPPING MIXER Telephone Encounter - Ramonita Butts - 07/12/2020 1:43 PM CST Reason for Communication: Question Current Can Nursing/Provider leave a detailed message?: Did the patient refuse triage through Nurse line? (for symptom based concerns): Action Needed: Patient called stating that the prescribed, for her is too expensive and the patient is asking if there is an alternative? Name of Medication (if relevant): metroNIDAZOLE PED TOPPING MIXER documented in this encounter Plan of Treatment Upcoming Encounters Date Type Specialty Care Team Description 03/05/2022 Office Visit Dermatology Finn Quinonez M.D. [address] [place] [phone] (Wo rk) documented as of this encounter Visit Diagnoses Not on filedocumented in this encounter
--- OUTSIDE RECORDS SUMMARY | 2022-02-05 14:45 | XMS_ITS | Encounter Summary ---
:1939 Author Organization [facility] Address [address] [place] [address] Care Team Providers Name Role Phone Unavailable Primary Care Provider Unavailable Encounter Details Date Type Department Care Team Description 02/19/2021 Clinical Communication Department of Finn Quinonez Dermatology in M.D. [place], [place] [address] [facility] [address] [place] [phone] Social History Tobacco Use Types Packs/Day Years Used Date Smoking Tobacco: Never Cigarettes Smokeless Tobacco: Never Sex Assigned at Date Recorded Not on file documented as of this encounter Miscellaneous Notes Telephone Encounter - Estephanie Aiken - 02/19/2021 12:00 PM CDT Reason for Communication: 2 month follow up appt Current Can Nursing/Provider leave a detailed message?: yes Did the patient refuse triage through Nurse line? (for symptom based concerns): na Action Needed: Pt was told to come back in 2 month. Unable to schedule until April. Can pt be worked in sooner? Pt was concerned because provider told her two months and not three. Name of Medication (if relevant): na Please send all scheduling replies to scheduling pool. documented in this encounter Plan of Treatment Upcoming Encounters Date Type Specialty Care Team Description 03/05/2022 Office Visit Dermatology Finn Quinonez M.D. [address] [place], [place] [phone] (Wo rk) documented as of this encounter Visit Diagnoses Not on filedocumented in this encounter
--- OUTSIDE RECORDS SUMMARY | 2022-02-05 14:45 | XMS_ITS | Encounter Summary ---
:1939 Author Organization [facility] Address [address] [place] [address] Care Team Providers Name Role Phone Unavailable Primary Care Provider Unavailable Reason for Visit Reason Comments Follow-up Pain Appointment Request (Routine) - Closed Specialty Diagnoses / Procedures Referred By Contact Refer red To Contact Orthopedic Surgery Referral ID Status Reason Start Date Expiration Date Visits Requ ested Visits Authorized [id number] Closed 05/05/2017 11/01/2017 1 1 Encounter Details Date Type Department Care Team Description 05/26/2017 Office Visit Department of Mari Tinajero ( Primary Dx) [facility] [address] [place] [address] [place] [phone] Social History Tobacco Use Types Packs/Day Years Used Date Smoking Tobacco: Former Smokeless Tobacco: Never Sex Assigned at Date Recorded Not on file documented as of this encounter Last Filed Vital Signs Vital Sign Reading Time Taken Comments Blood Pressure 130/84 05/26/2017 9:43 AM SAW FEEDER Pulse 78 05/26/2017 9:43 AM SAW FEEDER Temperature 36.6 ??C (97.9 ??F) 05/26/2017 9:43 AM SAW FEEDER Respiratory Rate - - Oxygen Saturation - - Inhaled Oxygen Concentration - - Weight - - Height - - Body Mass Index - - documented in this encounter Progress Notes Mari Tinajero D.PTaqueriaMTaqueria - 05/26/2017 9:45 AM CST SUBJECTIVE Pain reported: left 2nd intermetatarsal space. History of sub 2nd capsulitis with previous injectionOct 2016, and custom orthotics with 2nd MTPJ accomodation. She is wondering about recovering orthotics with more cushion, however she is leaving for a trip to [facility] later this week and would like to take the orthotics with her, so she will drop them off when she returns so we can send them in for modification. CHIEF COMPLAINT / REASON FOR VISIT Rubi Mota is a 76 y.o. female who presents for follow-up of Follow-up and Pain of the Left Foot and is under the care of No primary care provider on file.. HISTORY OF PRESENT ILLNESS HPI See above Her surgical history is notable for: No past surgical history on file. REVIEW OF SYSTEMS Review of Systems OBJECTIVE Vital Signs temperature is 36.6 ??C. Her blood pressure is 130/84 and her pulse is 78. PHYSICAL EXAM Ortho Exam Left foot: Mild 2nd hammetoe development, that remains flexible. No focal pain sub 2nd met head or MTPJ. Pain localized to 2nd intermetatarsal space with mild edema dorsally. Patient also relates numbness, tingling, and pins and needles sensation on the dorsal 2nd IMS. No metatarsal shaft pain, and noerythema or eccymosis. 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 Patient to drop off her orthotics when she returns from her trip so we can recover. FEEDER documented in this encounter Plan of Treatment Upcoming Encounters Date Type Specialty Care Team Description 03/05/2022 Office Visit Dermatology Finn Quinonez M.D. [address] [place] [phone] (Wo rk) documented as of this encounter Visit Diagnoses Diagnosis Neuroma - Primary documented in this encounter
--- OUTSIDE RECORDS SUMMARY | 2022-02-05 14:45 | XMS_ITS | Encounter Summary ---
:1940 Author Organization [facility] Address [address] [place] [address] Care Team Providers Name Role Phone Unavailable Primary Care Provider Unavailable Encounter Details Date Type Department Care Team Description 02/12/2021 Clinical Communication Department of Finn Quinonez, Dermatology in [place], [place] [address] [phone] Social History Tobacco Use Types Packs/Day Years Used Date Smoking Tobacco: Never Cigarettes Smokeless Tobacco: Never Sex Assigned at Date Recorded Not on file documented as of this encounter Miscellaneous Notes Telephone Encounter - Danielle Almaguer R.N. - 02/13/2021 12:50 PM CDT RN called Rubi with appointment details per Dr. Quinonez. RN left voicemail with verbal approval from patient from prior conversation with appointment details. RN did leave the clinic number to call back if the appointment did NOT work for her. RN will have scheduling secure the appointment on Dr. Quinonez's schedule. Telephone Encounter - Danielle Almaguer R.N. - 02/13/2021 11:08 AM CDT ASSESSMENT Patient visited the dentist recently where they was a dark spot found on the patient's tongue. Mariedenies any pain, itchiness, bleeding or irritation. She stated she was last seen 6 months ago at thedentist and they did not notice it then. Her dentist did recommend she be seen by dermatology for further assessment. Patient is next due for an appointment in dermatology in June 2021. Her last visit with Dr. Quinonez was on 01/08/2021. PLAN RN will reach out to Dr. Quinonez for further recommendations on when patient should be seen in clinic. Patient verbalized that it is okay for nursing to leave a detailed voicemail on her line if no answer. Information/Education: patient/caller able to teach back. Caller agreeable to plan of care: yes. The following references were used: nursing clinical judgement. Telephone Encounter - Isabel Pritchett - 02/12/2021 10:03 AM CDT Rubi called to see if she can be put in to see Dr Quinonez on03-12-21 as her is seeing Dr Quinonez that day and her dentist said she has spot on tongue to check, plz call her at [phone] documented in this encounter Plan of Treatment Upcoming Encounters Date Type Specialty Care Team Description 03/05/2022 Office Visit Dermatology Finn Quinonez M.D. [address] [place], [place] [phone] (Wo rk) documented as of this encounter Visit Diagnoses Not on filedocumented in this encounter
--- OUTSIDE RECORDS SUMMARY | 2022-02-05 14:45 | XMS_ITS | Encounter Summary ---
:1940 Author Organization [facility] Address [address] [place] [address] Care Team Providers Name Role Phone Unavailable Primary Care Provider Unavailable Encounter Details Date Type Department Care Team Description 09/26/2017 Hospital Encounter Department of Radiology Mari Tinajero Pain Foot Left in [place], R[facility] D[facility] [address] [place] [address] [phone] Social History Tobacco Use Types Packs/Day [...] by mouth daily. 0 04/01/2016 (for_MULTI-DELYN) liquid [id number] Take 1 capsule by 0 08/2015 OIL ORAL mouth daily. raNITIdine (for_ZANTAC) Take 150 mg by mouth 3 01/25/2019 150 mg tablet 2 (two) times a day. documented as of this encounter Plan of Treatment Upcoming Encounters Date Type Specialty Care Team Description 03/05/2022 Office Visit Dermatology Finn Quinonez M.D. [address] [place], [place] [phone] (Wo rk) documented as of this encounter Procedures Procedure Name Priority Date/Time Associated Comments Diagnosis DX FOOT LEFT 3+ RAD - Routine 09/26/2017 12:59 Pain Foot Left Resul ts for this VIEWS (most inpatients PM CDT procedure a re in and all the results outpatients) section. documented in this encounter Results DX Foot Left 3+ [...] joint effusion. Probab le pes planus. Mari Tinajero D.P.M. IMG DIAGNOSTIC IMAGING PROCE DURMIGUE documented in this encounter Visit Diagnoses Diagnosis Pain Foot Left documented in this encounter
== END 2022-01-14 11:32 | disposition home or self-care (01) ==
PROVIDERS: PCP Physician Assistant Medical; Visit Provider Internal Medicine Gastroenterology
DX: K25.9 Gastric ulcer, unspecified as acute or chronic, without hemorrhage or perforation (principal); K44.9 Diaphragmatic hernia without obstruction or gangrene
CPT/HCPCS: 43239; 88305; J2250; J3010

== ENCOUNTER 2022-04-05 08:52 | Emergency (ER) | payer MEDICARE, OTHER, SELFPAY ==
[2022-04-05 09:11] VITALS: BP 167/92; PULSE 80; RESP 18; TEMP 36.2; O2SAT 100; BMI 26.5
--- NOTE | 2022-04-05 09:36 | CRLHL7_ITS ---
For Patients: As a result of the Cures Act, medical imaging exams and procedure reports are released immediately into your electronic medical record. You may view this report before your referring provider. If you have questions, please contact your health care provider. INDICATION: Chest injury TECHNIQUE: Single view chest with AP and oblique views of the left chest COMPARISON: None available. FINDINGS: There is no dense consolidation, effusion, or pneumothorax. The cardiac silhouette is mildly prominence with a moderate hiatal hernia. There is no evidence of displaced rib fracture. The bony thorax is otherwise intact. IMPRESSION: Mild chronic interstitial changes without dense consolidation. No displaced rib fracture is appreciated. If pain and clinical symptoms persist, subtle, non-displaced injuries are not entirely excluded. Dictated by Darrell Espinal MD @ 04/05/2022 10:15:24 AM (Electronically Signed)
--- NOTE | 2022-04-05 09:36 | ED.GENADULT ---
HPI - General Adult General Chief complaint: Shortness of Breath/Dyspnea Stated complaint: shortness of breath,pain in lower rib Time Seen by Provider: 04/05/22 09:28 History of Present Illness HPI narrative: This 81-year-old female comes in with pain in her left lower anterior ribs. She states that she was on an escalator with her who lost his balance. He fell toward her and she bumped her left ribs on something in this process. She did not have pain immediately but over the next couple days she has developed distinct pain that is reproducible with movement, deep breathing, and palpating this area. She arrives with normal vital signs. She does not have any hypoxia. She does not report any infection symptoms of her respiratory tract. Related Data Home Medications Medication Instructions Recorded Confirmed amlodipine 5 mg tablet mg PO DAILY 01/09/22 01/09/22 ascorbate calcium (vitamin C) 500 1 g PO Q6H 01/09/22 01/09/22 mg tablet cholecalciferol (vitamin D3) 1,250 1,250 mcg PO QWEEK 01/09/22 01/09/22 mcg (50,000 unit) capsule coenzyme Q10 100 mg capsule mg PO DAILY 01/09/22 01/09/22 estradiol 2 mg (7.5 mcg/24 hour) 2 vaginal [id number] 01/09/22 01/09/22 vaginal ring famotidine 10 mg tablet mg PO BID 01/09/22 01/09/22 fluconazole 150 mg tablet mg PO .Once as needed PRN 01/09/22 01/09/22 lisinopril 20 1 tab PO DAILY 01/09/22 01/09/22 mg-hydrochlorothiazide 12.5 mg tablet metaxalone 800 mg tablet 800 mg PO BID 01/09/22 01/09/22 metronidazole 1 % topical gel 1 topical DAILY 01/09/22 01/09/22 multivitamin 1 tab PO QAM 01/09/22 01/09/22 naproxen 500 mg tablet mg PO 01/09/22 01/09/22 simvastatin 20 mg tablet 20 mg PO .Bedtime 01/09/22 01/09/22 Previous Rx's Medication Instructions Recorded ketorolac 10 mg tablet 10 mg PO Q8H 5 days #15 tabs 04/05/22 Allergies Allergy/AdvReac Type Severity Reaction Status Date / Time walnut Allergy Mild Hives Verified 12/25/21 14:41 Opioid Analgesics Allergy Mild Nausea and Uncoded 12/25/21 14:41 vomiting Review of Systems Status of ROS: Reports: 10 or more systems reviewed and unremarkable except as noted in History and below Narrative: Constitutional: No fevers, no weight gain or loss. Eyes: No discharge. No vision changes. HENT: No congestion, no sore throat, no ear pain. Cardiovascular: No palpitations. Respiratory: No shortness of breath, no wheezes, no cough. Gastrointestinal: No abdominal pain, no vomiting, no diarrhea. Genitourinary: No dysuria, no hematuria. Musculoskeletal: Normal range of motion. Skin: No rashes, no pruritis. Neurological: No dizziness, weakness, sensory change, speech change. Endo/Heme/Allergies: No bruising or bleeding. No polydipsia. Pysch: no suicidality, no anxiety, no insomnia. All other systems reviewed and are negative. [facility] Medical History (Updated 04/05/22 @ 10:47 by Nigel Grant MD) Chest pain Uterovaginal prolapse Social History Smoking Status: Never smoker Do you use any of these nicotine containing products: None Second hand tobacco smoke exposure: No How often do you have a drink containing alcohol: never How often do you have six or more drinks on one occasion: Never AUDIT-C Alcohol total score: 0 Non-prescribed substance use: denies use Exam Narrative: Exam Narrative: Constitutional: Well-developed, well-nourished, no acute distress. HEENT: Normocephalic, atraumatic. Neck: Normal range of motion. Nontender. Supple. Heart: Regular. No murmurs. Normal rate. Intact distal pulses. Lungs: Clear to auscultation. No wheezes, rhonchi, or rales. She manifests distinct discomfort when palpating in the left lower anterior ribs. Abdomen: Normal bowel sounds. Nontender. No rebound tenderness. Genitalia: Deferred. Back: No midline tenderness. Normal range of motion. Extremities: Normal range of motion. No injury. Skin: Intact. No rash. Warm. No erythema or pallor. Neurologic: No altered sensation. No weakness. Alert and oriented. Psychiatric: No suicidality. No anxiety or depression. No insomnia. Nursing notes and vitals signs are reviewed. Const: Vital Signs, click to edit/add: Vital Signs - 24 hr 04/05/22 09:11 Temperature 97.2 F L Pulse Rate [Pulse Oximeter] 80 Respiratory Rate 18 Blood Pressure [Le ft Upper Arm] 167/92 H Pulse Oximetry 100 Oxygen Delivery Me thod Room Air Course Vital Signs Vital signs: Initial Vital Signs Temperature 97.2 F L 04/05/22 09:11 Temperature Source Temporal Artery Scan 04/05/22 09:11 Pulse Rate 80 04/05/22 09:11 Respiratory Rate 18 04/05/22 09:11 Blood Pressure 167/92 H 04/05/22 09:11 Blood Pressure Mean 117 04/05/22 09:11 Pulse Oximetry 100 04/05/22 09:11 Oxygen Delivery Method 04/05/22 09:11 Vital Signs Temperature 97.2 F L 04/05/22 09:11 Pulse Rate 80 04/05/22 09:11 Respiratory Rate 18 04/05/22 09:11 Blood Pressure 167/92 H 04/05/22 09:11 Pulse Oximetry 100 04/05/22 09:11 Oxygen Delivery Method 04/05/22 09:11 Temperature 97.2 F L 04/05/22 09:11 Pulse Rate 80 04/05/22 09:11 Respiratory Rate 18 04/05/22 09:11 Blood Pressure 167/92 H 04/05/22 09:11 Pulse Oximetry 100 04/05/22 09:11 Oxygen Delivery Method 04/05/22 09:11 Medical Decision Making MDM Narrative Medical decision making narrative: This patient comes in with some discomfort in her left lower anterior ribs due to a injury event that occurred several days ago. X-ray imaging of the chest and left rib detail show no acute findings. This was reassuring to the patient. She did receive a rib belt which brought some relief to her symptoms. She also received a prescription for Toradol. Imaging Data Chest x-ray: Radiologist's impression: Mild chronic interstitial changes without dense consolidation. No displaced rib fracture is appreciated. If pain and clinical symptoms persist, subtle, non-displaced injuries are not entirely excluded. Discharge Plan Discharge Clinical Impression: Contusion of rib on left side Patient Disposition: Home, Self-Care Condition: Stable Additional Instructions: Use rib belt as needed. Take medication as needed and directed. Increase activity as tolerated. Follow up with MD or return if worsening. Prescriptions: New ketorolac 10 mg tablet 10 mg PO Q8H 5 Days Qty: 15 0RF No Action metronidazole 1 % gel 1 topical DAILY Rx Instructions: TO AFFECTED AREA AFTER CLEANSING coenzyme Q10 100 mg capsule PO DAILY metaxalone 800 mg tablet 800 mg PO BID naproxen 500 mg tablet PO simvastatin 20 mg tablet 20 mg PO .Bedtime amlodipine 5 mg tablet PO DAILY lisinopril-hydrochlorothiazide 20-12.5 mg tablet 1 tab PO DAILY famotidine 10 mg tablet PO BID multivitamin Tablet 1 tab PO QAM cholecalciferol (vitamin D3) 1,250 mcg (50,000 unit) capsule 1,250 mcg PO QWEEK estradiol 2 mg (7.5 mcg /24 hour) ring 2 vaginal [id number] Rx Instructions: APPLY PV [id number] ascorbate calcium (vitamin C) 500 mg tablet 1 g PO Q6H fluconazole 150 mg tablet PO .Once as needed PRN Rx Instructions: may repeat dose in 72 hours if symptoms persist Follow Up/Referrals: Adrienne Keys PA-C [Primary Care Provider] - Stand Alone Forms: [facility] Info Instructions
--- OUTSIDE RECORDS SUMMARY | 2022-04-05 09:36 | XMS_ITS | Clinical Summary ---
:1940 Author Organization [facility] [place] [address] Care Team Providers Name Role Phone Adrienne Keys Primary Care Provider Daniel Granger MD Unavailable Camilla Avilez MD Unavailable Yaneli Casas MD Unavailable Allergies Active Allergy Reactions Severity Noted Date Comments Unlisted Allergen (Include GI Upset n ausea and vomiting from Detail In Comments) narcotic s [place] Rogers Hives 03/08/2016 Medications Medication Sig Dispensed Refills Start Date End Date Status MULTIVITAMIN ORAL daily 0 Ac tive GLUCOSAMINE CHONDROITIN 0 05/05/2009 Active MAXIMUM STRENGTH 500 MG-400 MG CAP COMPRESSION wear daily 30 2 pair 0 05/17/2009 Act trinh STOCKINGSIndications: mmHg Dx: Venous stasis 459.81H Calcium 300 mg tablet Take by mouth. 0 11/15/2009 Active Takes 1500 mg per day cholecalciferol (VITAMIN Take 1 capsule 0 01/23/2010 Active D3) 1,000 unit capsule by mouth once daily. coenzyme q10 (CO Q-10) Take 1 capsule 0 09/29/2013 Active 100 mg cap by mouth once daily. ESTRING 2 mg vaginal 0 10/13/2015 Active ring JQHOM-0-PZK-VFW-HEP-SARK Take 1 capsule 0 04/01/2016 Active OIL ORAL by mouth. azelaic acid (FINACEA) Apply 1 Dose 0 10/22/2017 Active 15 % topical gel topically to affected area(s) one time if needed. lidocaine 5 % oint Apply topically 50 g 3 02/02/2020 Active topical to affected ointmentIndications: area(s) 3 times Spinal stenosis of daily if needed lumbar region with for Other neurogenic claudication (Specify) (pain). amLODIPine (NORVASC) 2.5 Take 1 Tablet 90 tablet. 4 04/18/2021 Active mg tabletIndications: (2.5 mg) by Hypertension, mouth once unspecified type daily. atorvastatin (LIPITOR) Take 1 Tablet 90 tablet. 4 04/18/2021 Active 20 mg tabletIndications: (20 mg) by Hyperlipidemia, mouth once unspecified daily. hyperlipidemia type famotidine (PEPCID) 20 Take 1 Tablet 180 tablet. 4 04/18/2021 Active mg tabletIndications: (20 mg) by Gastroesophageal reflux mouth 2 times disease, unspecified daily. whether esophagitis present metroNIDAZOLE (METROGEL) Apply topically 0 Active 0.75 % gel to affected area(s). naproxen (NAPROSYN) 500 TAKE 1 TABLET 180 Tablet 1 08/25/2021 Active mg tabletIndications: BY MOUTH TWICE Lumbar foraminal DAILY WITH stenosis MEALS NEEDED Metaxalone (SKELAXIN) TAKE 1/2 TO 1 270 Tablet 1 09/26/2021 Active 800 mg TABLET BY MOUTH tabletIndications: S/P 3 TIMES DAILY lumbar fusion, Lumbar foraminal stenosis, Degeneration of lumbar or lumbosacral intervertebral disc, Spinal stenosis of lumbar region with neurogenic claudication, Chronic right SI joint pain methylPREDNISolone Take by mouth 21 Tablet 0 10/03/2021 Active (Medrol, Wiliam,) 4 mg as instructed tabletIndications: per packaging. Arthritis of left knee, Pes anserine bursitis, Greater trochanteric bursitis of left hip diclofenac topical Apply 2 g 200 g 1 10/03/2021 Active (VOLTAREN) 1 % topically to gelIndications: affected Arthritis of left knee, area(s) 4 times Pes anserine bursitis daily. hydroCHLOROthiazide 12.5 Take 1 Tablet 180 Tablet 3 12/19/2021 Active mg tabletIndications: (12.5 mg) by Hypertension, mouth in the unspecified type morning and 1 Tablet (12.5 mg) in the evening. lisinopriL (PRINIVIL; Take 1 Tablet 180 Tablet 3 12/19/2021 Active ZESTRIL) 20 mg (20 mg) by tabletIndications: mouth in the Hypertension, morning and 1 unspecified type Tablet (20 mg) in the evening. omeprazole (PRILOSEC) 20 Take 1 Capsule 90 Capsule 3 2 Active mg Delayed-Release (20 mg) by capsuleIndications: Iron mouth once deficiency anemia, daily before a unspecified iron meal. Take deficiency anemia type, 30-60 minutes Hiatal hernia, Frederick before a ulcer, acute meal/food once a day. lisinopril-hydrochloroth Take 1 Tablet 180 Tablet 3 03/01/2022 Active iazide 20-12.5 mg tablet by mouth two (PRINZIDE)Indications: times daily. Hypertension, unspecified type Active Problems Problem Noted Date Frederick ulcer, acute 01/15/2022 Overview: EGD 12/2021 10 cm hiatal hernia with Came grupo ulcers, treat with omeprazole Chest discomfort 03/04/2017 Abnormal EKG 03/04/2017 Rotator cuff tear arthropathy 01/04/2015 Osteoarthritis of glenohumeral joint 01/04/2015 Cheilitis 04/05/2014 Squamous cell carcinoma of skin of trunk 11/09/2013 Gastritis 10/06/2013 Overview: EGD 09/2013 gastritis H/O spinal fusion 10/04/2013 Overview: L3-5 done [place] [address] Fisher at [facility]. Rosacea 10/04/2013 Lymphedema 10/04/2013 Overview: Right lower extremity since arthroscopy in 2009. Wears a compression stocking and does self massage. Anemia 10/04/2013 Osteoarthritis of right knee 03/17/2013 Osteopenia 11/11/2011 Overview: Scores -1.0 to -1.7 in 2012. I would rep eat in a couple years. ,Sherry Bailey M.D. 11/16/2012 1:33 PM Cystocele, midline 11/11/2011 Screen for colon cancer 04/23/2011 Overview: Colonoscopy 03/2011 diverticulosis no fo llow up needed Paroxysmal Afib 05/15/2008 Overview: Had brief episode perioperatively after spinal fusion. Evaluation by cardiology and testing normal and no recurrence. Acquired spondylolisthesis 10/19/2007 Degeneration of lumbar or lumbosacral intervertebral d isc 10/19/2007 Thoracic or lumbosacral neuritis or radiculitis, unspe cified 10/19/2007 HYPERTENSION 04/06/2007 Other and unspecified malignant neoplasm of skin of ot her and unspecified 04/06/2007 parts of face Overview: Eye Lid 2001 Other and unspecified hyperlipidemia 12/18/2006 Resolved Problems Problem Noted Date Resolved Date Lumbar spinal stenosis 05/12/2008 10/04/2013 Lumbar spondylosis 05/12/2008 10/04/2013 HTN (hypertension) 05/12/2008 05/27/2008 Overview: Updated by system to replace inactive re cord Acute blood loss anemia 05/12/2008 10/16/2010 Chronic pain syndrome 11/27/2007 03/23/2009 Encounters Date Type Specialty Care Team Description 04/05/2022 Travel 04/05/2022 Nurse Triage Adrienne Keys Chest Injur y (LENORA Venegas (L) rib area) 03/08/2022 Refill Daniel Granger Refill Requsariah Marley MD (Naproxen) 02/26/2022 Refill Adrienne Keys Refill LENORA Velazquez (Lisinopril-[facility] othiazide (20-1 2.5 Mg)) 01/14/2022 Procedure Only Chang Bower MD 01/14/2022 Orders Only Scanner <No scans attac hed> 01/14/2022 Lab Requisition Chang Bower MD 01/10/2022 Nurse/Clinic Staff Only Test ing (COVID-19 Preop/) 01/10/2022 Travel 01/07/2022 Office Visit Daniel Granger [facility] (W/C follow up MD Donell back injury DOI:03/15/1996) 01/07/2022 Travel from Last 3 Months Immunizations Name Administration Dates Next Due COVID-19 vaccine (Resilience 10/24/2021 30mcg/0.3mL) 12YO+ HARJINDER-SUCROSE PF, MDV COVID-19 vaccine ([employer] 03/27/2021, 09/12/2020, 30mcg/0.3mL) PF, MDV Hepatitis A (Adult) 03/06/2004, 09/16/2003 Influenza A (H1N1), Inactivated (Age 1206/13/2009 >=3 Years) Influenza, High-dose Inactivated 03/02/2020, 03/19/2018, , 03/03/2015, 03/03/2015, 02/25/2014 Influenza, High-dose Quadrivalent 03/25/2022, 03/06/2021 Inactivated Influenza, IIV3 (Age 6-35 mos) 03/15/2011, 03/08/2010 Influenza, IIV3 (Age >=3 years) 03/10/2013, 03/10/2013, 09/2011, 04/02/2012, 03/15/2011, 03/08/2010, 03/16/2009, 04/06/2008, 04/03/2007, 05/08/2005 Influenza, Inactivated IIV3 (Age 65+ 03/20/2019, 03/17/2017 Years) Preserv Free Lyme Disease Vaccine 09/29/1999, 10/28/1998, 09/28/1998 Pneumococcal Poly,23-Valent 05/15/2008 (Pneumovax) Pneumococcal conj 13-Valent (Prevnar 02/21/2015 13) Td (Age >=7 Years) 11/09/1997 Td, Preservative Free (age >= 7 03/17/2017 Years) Tdap 10/19/2007 Zoster (Shingrix-RZV, recombinant) 05/28/2018, 03/11/2018 Zoster (Zostavax-ZVL, live) 08/25/2006 Family History Medical History Relation Name Comments Other Brother 2 d 7, cretinisim, pnx Other Father d 87, diverticul itis Other Mother d 91, pnx, parki nsons, htn Cancer-breast No Family History Cancer-ovarian No Family History Relation Name Status Comments Brother 1 Brother 2 Father Mother Social History Tobacco Use Types Packs/Day Years Used Date Former Smoker 5 Quit: 06/30/18 65 Smokeless Tobacco: Never Used Tobacco Cessation: Counseling Given: Yes Comments: occasional when younger Alcohol Use Standard Drinks/Week Comments Yes 0 (1 standard drink = 0.6 oz pure alcoho l) occasional Sex Assigned at Date Recorded Not on file COVID-19 Exposure Response Date Recorded In the last 10 days, have you been in contact with No / Unsu re 04/05/2022 8:10 AM CDT someone who was confirmed or suspected to have Coronavirus/COVID-19? Obstetrics History Last Filed Vital Signs Vital Sign Reading Time Taken Comments Blood Pressure 114/75 01/07/2022 1:45 PM CDT Pulse 85 01/07/2022 1:45 PM CDT Temperature 36.7 ??C (98 ??F) 01/07/2022 1:45 PM CDT Respiratory Rate 14 01/18/2019 9:59 AM CDT Oxygen Saturation 97% 01/07/2022 1:45 PM CDT Inhaled Oxygen Concentration - - Weight 65.8 kg (145 lb) 12/19/2021 11:17 AM CDT Height 153 cm (5' 0.24) 06/04/2021 1:02 PM HISTORIC INTERPRETER Body Mass Index 28.1 06/04/2021 1:02 PM HISTORIC INTERPRETER Plan of Treatment Upcoming Encounters Date Type Specialty Care Team Description 04/05/2022 Office Visit Pamela Davidson PA [address] [place] [phone] (Wo rk) 04/24/2022 Office Visit Adrienne Keys PA [address] [place] [phone] (Wo rk) 07/08/2022 Office Visit Daniel Granger MD [address] [place] [phone] (Wo rk) Health Maintenance Due Date Last Done Comments Depression screening for age 12+ 04/18/2022 04/18/2021, , 04/09/2019, Additional history exists Medicare Wellness for age 65+ 04/18/2022 04/18/2021, 2019, 04/09/2019, Additional history exists BMI (ht and wt on same day) for 06/04/2022 06/04/2021, 03/31, age 18+ 04/11/2020, Additional history exists Tetanus booster 03/17/2027 03/17/2017, 10/19/2007, 11/09/1997 Tdap Completed 10/19/2007 Pneumococcal series for age 65+ Completed 02/21/2015, 04/30 Zoster (shingles) series for age Completed 05/28/2018, 05/2018, 50+ 08/25/2006 DEXA/DXA scan for age 65+ Completed 05/17/2021, 04/20/2018 , 03/14/2016, Additional history exists COVID-19 vaccine series Completed 03/22/2022, 10/24/2021, 03/27/2021, Additional history exists Influenza for age 65+ Completed 03/25/2022, 03/06/2021, 03/02/2020, Additional history exists Medical Devices Implanted Type Area Senior Java Software Developer Device Shelf Model / Identifier Expiration Serial / Date Lot David 5.0cmx5.5mm Pre-Cut - [id number] Spine Spine SOFAMOR [id number] / Implanted: Qty: 2 on 05/11/2008 at [facility] Implan ts / Screw Tsrh Tc 6.5x45mm Std Titnm - [id number] Spine MEDTR ONIC PS [id number] / Implanted: Qty: 1 on 05/11/2008 at [facility] MEDICAL / Insert Knee Rt Sz3-4 9mm Journey Ii Bcs Bi Cruc Stbz - [id number] Right: CHAN AND [id number] / Implanted: Qty: 1 on 02/14/2014 at [facility] Knee NEPHEW / ORTHOPAEDICS [id number] Procedures Procedure Name Priority Date/Time Associated Comments Diagnosis PATH TISSUE EXAM Routine 01/14/2022 12:48 Results for PM CDT this procedure are in the results section. LAB TRACKING EVENT Routine 01/14/2022 12:38 PM CDT SCAN-ENDOSCOPY 01/14/2022 12:00 Results f or AM CDT this procedure are in the results section. ESOPHAGOGASTRODUODENOSCOPY Routine 01/14/2022 12:00 Iron defic iency Results for AM CDT anemia, this procedure unspecified iron are in the deficiency anemia results type section. COVID 19 Routine 01/10/2022 2:56 Pre-op exam Results for PM CDT this procedure are in the results section. COVID 19 COLLECTION Routine 01/10/2022 2:56 Pre-op exam Resul ts for PM CDT this procedure are in the results section. from Last 3 Months Results PATH TISSUE EXAM (01/14/2022 12:48 PM CDT) Component Value Ref Test Analysis Performed At [facility] gist Range Method Time Signature Case Report Pathology Report ?Case: [id number] ? 01/15/2022 [place] Authorizing Provider: ??Chang Zepeda MD ?? Collected: ? 01/14/2022 1248 ? 10:17 AM HEALTH Ordering Location: ? [facility] ?Received: ?01/14/20227 ? CDT MUNIR HOBBS Pathologist: ? Cristi Whittington, ? ENTRAL ? MD ? LABORATORY Specimens: ?? A) - Duodenum Biopsy ? B) - Stom ach Biopsy ? Final A) DUODENUM, BIOPSY: 01/15/2022 [facility] Electronically Diagnosis 1. Normal duodenal mucosa 10:[address] [facility] signed by 2. Negative for celiac disease and other enteropathy CDT LABORATORY-C LARON Whittington O tto, B) STOMACH, BIOPSY: LABORATORY MD on 01/15/2022 1. Normal gastric antral and body mucosae at 10:17 AM 2. Negative for Helicobacter Clinical Ms. Mota is a 81 01/15/2022 [facility] Information y.o. who presents 10:17 AM [facility] with suspected CDT LABORATORY-C upper ENTRAL gastrointestinal LABORATORY bleeding. EGD reveals a normal esophagus with a regular Z-line at 28 cm. There is a 10 cm hiatal hernia identified with a few Frederick ulcers. The gastric mucosa was normal. The examined duodenum is normal. Gross A) Received in formalin are 2 cano mucosal fragments averaging 5 mm in greatest dimension, which are entirely submitted in one cassette. It is labeled with the patient's name and designated duodenum. [facility] Description 10:17 AM HEALTH B) Received in formalin are 6 cano mucosal fragments ranging from 2 mm to 6 mm in greatest dimension, which are entirely submitted in one cassette. It is labeled with the patient's name and designated random stomach. CDT LABORATORY-C LARON Love 01/14/2022 9:12 PM BUDDY BEATTY Microscopic The final 01/15/2022 [facility] Description diagnosis is based 10:17 AM HEALTH on microscopic CDT LABORATORY-C examination of ENTRAL appropriate LABORATORY sections of all specimens. Additional 01/15/2022 [facility] Information Interpreted at [facility], Central Laboratory - [address] [facility] [address], [place] [address] 10:17 AM HEALTH CDT LABORATORY-C ENTRAL LABORATORY Specimen Anatomical Collection Method Collection Time Receive d Time (Source) Location / / Volume Laterality Other (Duodenum 01/14/2022 12:48 01/15/20 22 9:07 Biopsy) PM CDT PM CDT Specimen 01/14/2022 12:48 01/14/2022 9:07 (specimen) PM CDT PM CDT (Stomach Biopsy) Chang Bower MD PATHOLOGY/CYTOLOGY Performing Organization Address City/[facility]/ZIP Code Phon e Number [facility] [address] [place] [address] LABORATORY-CENTRAL 2000 LABORATORY LAB TRACKING EVENT (01/14/2022 12:38 PM CDT) Specimen Anatomical Collection Method Collection Time Receive d Time (Source) Location / / Volume Laterality Other (Other) Client Collect / 01/14/2022 12:38 2021 8:50 Unknown PM CDT PM CDT Chang Bower MD LAB BILL ONLY Performing Organization Address City/[facility]/ZIP Code Phon e Number [facility] [address] [place] [address] LABORATORY-CENTRAL 1999 LABORATORY SCAN-ENDOSCOPY (01/14/2022 12:00 AM CDT) Narrative This result has an attachment that is no t available. Scanner OTHER ESOPHAGOGASTRODUODENOSCOPY (01/14/2022 12:00 AM CDT) Narrative This result has an attachment that is no t available. Adrienne COOLEY GI PROCEDURE ORD COVID 19 (01/10/2022 2:56 PM CDT) Analysis Performed At Patho logist Time Signature COVID 19 Negative Negative 01/11/2022 [facility] 9:43 PM CDT LABORATORY-[place] LABORATORY Comment: All PCR tests are subject to fa lse negative result due to variability in viral load and collection technique. A n egative result does not rule out a SARS-CoV-2 infection. Clinical correlation required . Specimen Anatomical Location / Collection Method Collection Ger e Received Time (Source) Laterality / Volume Other SPECIMEN FROM Non-Blood / 01/10/2022 2:56 01/11/2022 6:46 NASOPHARYNGEAL Unknown PM CDT AM CDT STRUCTURE / Unknown Narrative [facility] LABORATORY-CENTRAL LABORAT ORY - 01/11/2022 9:43 PM CDT This test has been authorized by FDA und er an Emergency Use Authorization (EUA). This test is only authorized for the duration of time the declaration that circumstances exist justifying the authorization of th e emergency use of in vitro diagnostic tests for detection of SARS-CoV-2 virus and/or diagnosis of COVID-19 infection under section 564(b)(1) of the Act, 21 U.S.C. 360bbb-3(b)(1), unless the authorization is terminated or revoked sooner. Chang Bower MD MICROBIOLOGY Performing Organization Address [facility] Phon e Number [facility] [address] [place] [address] LABORATORY-CENTRAL 2000 LABORATORY COVID 19 COLLECTION (01/10/2022 2:56 PM CDT) [facility] Method Time Signature TESTING [facility] 01/11/2022 [facility] LABORATORY Laboratory 6:46 AM CDT LABORATORY-CE NTRAL LABORATORY Comment: Specimen submitted to [facility] for testing. Specimen Anatomical Location / Collection Method Collection Ger e Received Time (Source) Laterality / Volume Other SPECIMEN FROM Non-Blood / 01/10/2022 2:56 01/10/2022 3:03 NASOPHARYNGEAL Unknown PM CDT PM CDT STRUCTURE / Unknown Chang Bower MD SEND OUTS Performing Organization Address City/[facility]/ZIP [facility] Phon e Number [facility] [address] [place] [address] LABORATORY-CENTRAL 1999 LABORATORY from Last 3 Months Insurance Payer Benefit Plan / Subscriber ID Effective Dates Phone Addre ss Type Group WC WORKERS COMP WC ESIS [id number] 2020-Presen [address] [place] [phone] MEDICARE PART B MEDICARE PART B [id number] 1998-Present ATTN: CLAIMS - HB USE ONLY HB ONLY [address] [facility] [address] MEDICA MEDICA PRIME [id number] 2018-Present [address] [address] [place] [address] MEDICA MR MEDICA PRIME [id number] 2017-Present [address] [address] [place] [address] Rubi Mota Workers Comp Self 1940 [address] [place] [place] [address] Advance Directives Documents on File Type Date Recorded Patient Manager Forms Explanati on Healthcare Directive 03/19/2017 4:03 PM MELITA NUÑEZ IELD, 03/13/16 Healthcare Directive 05/16/2008 Latest Code Status on File Code Status Date Activated Date Inactivated Comments Full Code 02/14/2014 12:04 PM 02/17/2014 4:14 PM Full Code 02/14/2014 5:21 AM 02/14/2014 12:04 PM Full Code 05/11/2008 4:33 PM 05/15/2008 2:46 PM Full Code 05/11/2008 5:41 AM 05/11/2008 4:33 PM Care Teams Director Of Event Sales Relationship Specialty Start Date End Date Adrienne Keys PA PCP - General Family Practice 06/27/15 [address] [place] [address] Daniel Granger MD Family Practice 03/17/17 [address] [place] [address] Camilla Avilez MD Surgery - Ophthalmology 03/17/17 Yaneli Casas MD 03/17/17
--- OUTSIDE RECORDS SUMMARY | 2022-04-05 09:36 | XMS_ITS | Encounter Summary ---
:1940 Author Organization [facility] Address [address] [place] [address] Care Team Providers Name Role Phone Unavailable Primary Care Provider Unavailable Reason for Visit Reason Comments Skin Check Outpatient (Routine) - Closed Specialty Diagnoses / Procedures Referred By Contact Refer red To Contact Dermatology Finn Quinonez M.D . [facility] [address] [place] [address] Referral ID Status Reason Start Date Expiration Date Visits Requ ested Visits Authorized [id number] Closed 07/17/2021 07/17/2022 1 1 Encounter Details Date Type Department Care Team Description 03/05/2022 Office Visit Department of Finn Quinonez Perleche ( Primary Dx); Dermatology in [place] [facility]; [place], [place] [address] [facility] Keratosis Seborrheic [address] [place] [phone] Social History Tobacco Use Types Packs/Day Years Used Date Smoking Tobacco: Never Cigarettes Smokeless Tobacco: Never Tobacco Cessation: Counseling Given: Not Answered Sex Assigned at Date Recorded Not on file documented as of this encounter Progress Notes Finn Quinonez M.D. - 03/05/2022 3:15 PM CDT SUBJECTIVE CHIEF COMPLAINT / REASON FOR VISIT Full skin cancer screening HISTORY OF PRESENT ILLNESS Rubi Mota is a pleasant 81 y.o. female who presents for a full skin cancer screening. The patient was last seen by me in Dermatology clinic on 07/17/21. She has a history of several non-melanoma skin cancers, most recently squamous cell carcinoma involving the chest treated by her primary care provider in 2013. She denies a personal or family history for melanoma. She uses sunscreen. She would particularly like us to evaluate a lesions involving the left ear. MEDICAL HISTORY 1. Chest: History of squamous cell carcinoma, treated by her primary care physician in 2013 2. Left lower eyelid: History of basal cell carcinoma, removed elsewhere in approximately 2002 3. Negative for melanoma FAMILY HISTORY Negative for melanoma OBJECTIVE PHYSICAL EXAMINATION General: Awake, alert, in no acute distress, and with appropriate affect. Eyes: No scleral injection or icterus. No eyelid abnormalities. Lymph: No lower extremity edema. Skin: I have examined the scalp, face, neck, chest, abdomen, back, bilateral upper extremities, and bilateral lower extremities. My scribe (Sharona) served as a staple cutter for the entirety of the exam. Examination of the face, trunk and extremities reveals multiple benign-appearing nevi, lentigines and seborrheic keratoses. Examination of the left shoulder reveals a seborrheic keratosis. Examination today reveals no suspicious lesions for skin cancer. ASSESSMENT / PLAN #1 Corners of mouth: History of probable perleche, not currently clinically active There is no evidence for a rash at this time. I have refilled her Ketoconazole cream. I recommend she apply the ketoconazole cream 1-2 times daily for a few weeks at a time as needed. Follow up as needed. #2 Face, trunk and extremities: Multiple nevi and [...] an immediate return visit for reassessment. #3 Face, trunk and extremities: Seborrheic keratosis The benign nature of the skin lesion(s) was discussed with the patient. No treatment is required. I recommend continued observation. Should this lesion change in size, color, texture, or shape or develop symptoms such as itching or bleeding, I recommend an immediate return visit for reassessment. #4 Chest: History of squamous cell carcinoma, treated by her primary care physician in 2013, no recurrence No clinical evidence of local recurrence today. Recommended monthly self-skin examinations to evaluate for new, changing, symptomatic, or otherwise worrisome lesions. Signs and symptoms of skin cancer discussed. Photoprotection was recommended. Return to Dermatology in 6-12 months for a full skin examor immediately if any new or changing lesions are noted. #5 Left lower eyelid: History of basal cell carcinoma, removed elsewhere in approximately 2002, no recurrence No clinical evidence of local recurrence today. Recommended monthly self-skin examinations to evaluate for new, changing, symptomatic, or otherwise worrisome lesions. Signs and symptoms of skin cancer discussed. Photoprotection was recommended. Return to Dermatology in 6-12 months for a full skin examor immediately if any new or changing lesions [...] Finn Quinonez M.D. Electronically Signed: carolyne Mirza. 02/26/2022. 11:22 AM CDT. I, Finn Quinonez M.D., personally [...] documented in this encounter Plan of Treatment Not on filedocumented as of this encounter Visit Diagnoses Diagnosis Perleche - Primary Nevi Multiple Keratosis Seborrheic documented in this encounter
--- OUTSIDE RECORDS SUMMARY | 2022-04-05 09:36 | XMS_ITS | Clinical Summary ---
:1940 Author Organization [facility] Address [address] [place] [address] Care Team Providers Name Role Phone Unavailable Primary Care Provider Unavailable Source Comments Patient records contain information from all sites at [facility]. For routine questions regarding patient records, call [phone] during business hours, M-F 8:00 AM - 5:00 PM Central Time. Record requests for emergency care only can be directed to [phone] at any time.[facility] Allergies Active Allergy Reactions Severity Noted Date Comments Black [place] Hives 03/08/2016 Codeine GI intolerance nausea and [...] 0 04/01/2016 Ac tive (for_MULTI-DELYN) daily. liquid [id number] Take 1 capsule by 0 04/01/2016 Active ROYCE OIL ORAL mouth daily. amLODIPine Take 5 mg by mouth 0 Active (for_NORVASC) 5 mg daily. tablet azelaic acid Apply topically 2 0 10/22/2017 Active (FINACEA) 15 % gel (two) times a day as needed. metroNIDAZOLE Apply to involved 45 g 0 01/25/2019 Active (METROCREAM) 0.75 % areas of face 1-2 cream times per day naproxen (NAPROSYN) Take 500 mg by 0 [...] daily for a few weeks then stop Additional Information Patient not taking. Reported on 03/05/2022 omeprazole (PriLOSEC) [address] 0 2 Active capsule metaxalone (SKELAXIN) 800 mg Take by mouth. 0 2020 Active tablet co-enzyme Q-10 (CO Q-10) 100 mg Take 1 capsule by mouth 0 09/29/2013 Active capsule daily. ketoconazole (NIZORAL) 2 % Apply sparingly to involved 30 g 1 03/05/2022 Active cream areas on corners of mouth 1-2 times daily as needed for a few weeks Active Problems No known active problems Encounters Date Type Specialty Care Team Description 03/05/2022 Office Visit Dermatology Finn Quinonez M.D. Bri he (Primary Dx); Nevi Multiple; Keratosis Sebor rheic from Last 3 Months Immunizations Name Administration Dates Next Due H1N1 Inj 06/13/2009 HZV (ZOSTAVAX) 08/25/2006 HepA Adult 03/06/2004, 09/16/2003 Influenza (IM) Preservative Free 03/15/2011, 03/08/2010 Influenza TIV (IM) 03/20/2019, 03/17/2017, 03/10/2013, 04/02/2012, 03/15/2011, 03/08/2010, 03/16/2009, 04/06/2008, 04/03/2007, 05/08/2005 Influenza, Seasonal, Injectable 03/10/2013, 04/02/2012, 02/2005 Lyme Disease 09/29/1999, 10/28/1998, 09/28/1998 PCV13 [...] Comments Blood Pressure 130/84 05/26/2017 9:43 AM WARP TIER Pulse 78 05/26/2017 9:43 AM WARP TIER Temperature 36.6 ??C (97.9 ??F) 05/26/2017 9:43 AM WARP TIER Respiratory Rate 16 09/09/2016 1:50 PM CDT Oxygen Saturation - - Inhaled Oxygen Concentration - - Weight - - Height - - Body Mass Index - - Plan of Treatment Health Maintenance Due Date Last Done Comments Depression Screening (Annual 06/30/2021 PHQ-2) COVID-19 Vaccine (5 - Booster for 12/19/2021 10/24/2021, , Pfizer series) 09/12/2020, Additional history exists Influenza Vaccine (#1) 2022 03/06/2021, 03/02/2020, 03/02/2020, Additional history exists Creatinine Level 04/18/2022 04/18/2021, 04/11/2020, 04/22/2019, Additional history exists Potassium Level 04/18/2022 04/18/2021, 04/11/2020, 04/22/2019, Additional history exists Sodium Level 04/18/2022 04/18/2021, 04/11/2020, 04/22/2019, Additional history exists DTaP,Tdap,and Td Vaccines (3 - Td 03/17/2027 03/17/2017, or Tdap) Pneumococcal vaccine (65+ years) Completed 02/21/2015, Zoster Vaccines Completed 05/28/2018, 03/11/2018, 08/25/2006 Fall Risk Screen (Annual) Completed 07/17/2021 Medical Devices Implanted Type Area Timber Framer Helper Device Shelf Model / Identifier Expiration Serial / Date Lot Hardware E.G. Hardware Spine Pins/Screws/R e.g. 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 See document viewer.
--- OUTSIDE RECORDS SUMMARY | 2022-04-05 09:37 | XMS_ITS | Encounter Summary ---
:[address] [facility] Address [address] [place] [address] Care Team Providers Name Role Phone Unavailable Primary Care Provider Unavailable Reason for Visit Reason Comments Follow-up Pain Appointment Request (Routine) - Closed Specialty Diagnoses / Procedures Referred By Contact Refer red To Contact Orthopedic Surgery Referral ID Status Reason Start Date Expiration Date Visits Requ ested Visits Authorized [id number] Closed 05/05/2017 11/01/2017 1 1 Encounter Details Date Type Department Care Team Description 05/26/2017 Office Visit Department of Mari Tinajero ( Primary Dx) [facility] [address] [place] [address] [place] [phone] Social History Tobacco Use Types Packs/Day Years Used Date Smoking Tobacco: Former Smokeless Tobacco: Never Sex Assigned at Date Recorded Not on file documented as of this encounter Last Filed Vital Signs Vital Sign Reading Time Taken Comments Blood Pressure 130/84 05/26/2017 9:43 AM INTERCELL CONNECTOR PLACER Pulse 78 05/26/2017 9:43 AM INTERCELL CONNECTOR PLACER Temperature 36.6 ??C (97.9 ??F) 05/26/2017 9:43 AM INTERCELL CONNECTOR PLACER Respiratory Rate - - Oxygen Saturation - [...] she is leaving for a trip to [facility] later this week and would like to [...] from her trip so we can recover. RCELL CONNECTOR PLACER documented in this encounter Plan of Treatment Not on filedocumented as of this encounter Visit Diagnoses Diagnosis Neuroma - Primary documented in this encounter
--- OUTSIDE RECORDS SUMMARY | 2022-04-05 09:37 | XMS_ITS | Encounter Summary ---
:1940 Author Organization [facility] Address [address] [place] [address] Care Team Providers Name Role Phone Unavailable Primary Care Provider Unavailable Encounter Details Date Type Department Care Team Description 02/12/2021 Clinical Communication Department of Finn Quinonez, Dermatology in [place], [place] [address] [phone] Social History Tobacco Use Types Packs/Day Years [...] be put in to see Dr Quinonez 03-12-21 as her is seeing Dr Quinonez that day and her dentist said she has spot on tongue to check, pllibra call her at [phone] documented in this encounter Plan of Treatment Not on filedocumented as of this encounter Visit Diagnoses Not on filedocumented in this encounter
--- OUTSIDE RECORDS SUMMARY | 2022-04-05 09:37 | XMS_ITS | Encounter Summary ---
:1940 Author Organization [facility] Address [address] [place] [address] Care Team Providers Name Role Phone Unavailable [...] calcium)-125 unit per times a day. tablet co-enzyme Q-10 (CO Q-10) Take 1 capsule by 0 07/2013 100 mg capsule mouth daily. GLUCOSAMINE/CHONDR CHANG A Take by mouth daily. 0 SOD (GLUCOSAMINE-CHONDROITIN) 1,500-1,200 mg/30 mL liquid lisinopril-hydroCHLOROthi Take 2 tablets by 3 azide mouth once daily. (for_PRINZIDE,ZESTORETIC) 20-12.5 mg per tablet multivitamin Take by mouth daily. 0 04/01/2016 (for_MULTI-DELYN) liquid [id number] Take 1 capsule by 0 08/2015 OIL ORAL mouth daily. raNITIdine (for_ZANTAC) Take 150 mg by mouth 3 01/25/2019 150 mg tablet 2 (two) times a day. documented as of this encounter Plan of Treatment Not on filedocumented as of this encounter Visit Diagnoses Not on filedocumented in this encounter
--- OUTSIDE RECORDS SUMMARY | 2022-04-05 09:37 | XMS_ITS | Encounter Summary ---
:1940 Author Organization [facility] Address [address] [place] [address] Care Team Providers Name Role Phone Unavailable Primary Care Provider Unavailable Encounter Details Date Type Department Care Team Description 06/03/2016 Hospital Encounter HX [facility] Mari Tinajero D.PTaqueriaM. [address] [place] [phone] (Wo rk) Social History Tobacco Use Types Packs/Day Years Used Date Smoking Tobacco: Never Assessed Sex Assigned at Date Recorded Not on file documented as of this encounter Last Filed Vital Signs Vital Sign Reading Time Taken Comments Blood Pressure 126/84 06/03/2016 11:09 AM CITY MAINTENANCE MANAGER Pulse 76 06/03/2016 11:09 AM CITY MAINTENANCE MANAGER Temperature - - Respiratory Rate 16 06/03/2016 11:09 AM CITY MAINTENANCE MANAGER Oxygen Saturation - - Inhaled Oxygen Concentration - - Weight - - Height - - Body Mass Index - - documented in this encounter Medications at Time of Discharge Medication Sig Dispensed Refills Start Date End Date calcium carbonate-vitamin Take 1 tablet by 0 08/2015 D3 625 mg (250 mg mouth 3 (three) times calcium)-125 unit per a day. tablet co-enzyme Q-10 (CO Q-10) Take 1 capsule by 0 07/2013 100 mg capsule mouth daily. GLUCOSAMINE/CHONDR CHANG A Take by mouth daily. 0 SOD (GLUCOSAMINE-CHONDROITIN) 1,500-1,200 mg/30 mL liquid multivitamin Take by mouth daily. 0 04/01/2016 (for_MULTI-DELYN) liquid [id number] Take 1 capsule by 0 08/2015 OIL ORAL mouth daily. documented as of this encounter Progress Notes Mari Tinajero D.P.M. - 06/03/2016 10:46 AM CST [id number] Patient is 75-year-old female seen for followup [...] TINAJERO DPM On: 06/06/2016 03:02 PM Source: [facility] MHSDOLBEYNONRADSYS Document Id: [id number] MAINTENANCE MANAGER documented in this encounter Miscellaneous Notes Miscellaneous - Mari Tinajero D.P.M. - 06/03/2016 11:44 AM CST Ambulatory Patient Summary [address] [id number] Visit Information Name: RUBI MOTA [facility] Number: [id number] Current Date: 06/03/2016 11:44:57 Physicians [...] if you dont have one. Go to [email or web address] and click on Create Your Account. Then, follow the directions to complete the online form. Youll be asked for your [facility] number which you can find at the top of this document. Your Goals/Additional instructions: Source: [facility] POWERCHART Document Id: [id number] MAINTENANCE MANAGER Miscellaneous - Mari Tinajero D.PTaqueriaM. - 06/03/2016 11:44 AM CST Ambulatory Discharge Medication List [address] [id number] Visit Information Name: RUBI MOTA [facility] Number: [id number] Current Date: 06/03/2016 11:44:57 Attending [...] of emergency. Electronically Signed By: MARI TINAJERO DP Signed On:03-JUN-2016 11:44:55 Additional Information: Source: [facility] POWERCHART Document Id: [id number] MAINTENANCE MANAGER Miscellaneous - Charlotte Aceves, R.N. - 06/03/2016 11:09 AM CST Adult Engine Room Helper Intake/History Adult Engine Room Helper Intake/History Entered On: 06/03/2016 11:12 CITY MAINTENANCE MANAGER Performed On: 06/03/2016 11:09 CITY MAINTENANCE MANAGER by CHARLOTTE ACEVES dope firer Chief Complaint : f/u left foot pain [...] % CHARLOTTE ACEVES RN - 06/03/2016 11:09 CITY MAINTENANCE MANAGER General Info Information Given By : Patient Preferred Communication Mode : Verbal Languages : Azerbaijani Is Patient Female and 13-50 no hysterectomy : No CHARLOTTE ACEVES RN - 06/03/2016 11:09 CITY MAINTENANCE MANAGER Subjective Pain Symptoms : Yes CHARLOTTE ACEVES RN - 06/03/2016 11:09 CITY MAINTENANCE MANAGER Pain Scale Pain Scale Verbal 0-10 : Open CHARLOTTE ACEVES RN - 06/03/2016 11:09 CITY MAINTENANCE MANAGER Pain Pain Assessment Grid Pain 1 Location : Foot CHARLOTTE ACEVES RN - 06/03/2016 11:09 CITY MAINTENANCE MANAGER Dependent Habits Exposure to Tobacco Smoke : Other: former Smoking Status : Former smoker Tobacco 2A : Yes Tobacco Use/Currently Using : No Tobacco Use/Last 30 Days : No Tobacco Use/Last 12 months : No CHARLOTTE ACEVES RN - 06/03/2016 11:09 CITY MAINTENANCE MANAGER Source: [facility] Document Id: [id number] CITY MAINTENANCE MANAGER!33 MAINTENANCE MANAGER documented in this encounter Plan of Treatment Not on filedocumented as of this encounter Visit Diagnoses Not on filedocumented in this encounter
--- OUTSIDE RECORDS SUMMARY | 2022-04-05 09:37 | XMS_ITS | Encounter Summary ---
:1940 Author Organization [facility] Address [address] [place] [address] Care Team Providers Name Role Phone Unavailable Primary Care Provider Unavailable Reason for Visit Reason Comments Skin Check Appointment Request (Routine) - Closed Specialty Diagnoses / Procedures Referred By Contact Refer red To Contact Family Medicine Referral ID Status Reason Start Date Expiration Date Visits Requ ested Visits Authorized [id number] Closed 11/05/2018 11/05/2019 1 Encounter Details Date Type Department Care Team Description 01/25/2019 Office Visit Department of Finn Quinonez Nevi Multi ple (Primary Dx); [facility] [place] [place] [address] [facility] Keratosis Seborrheic; [address] Angioma [place]; [place] [address] Dermatofibroma; [id number] Cancer Skin Squamous Cell Pe [...] refill today. Allergies Allergen Reactions ??? Black [place] Hives ??? Codeine GI intolerance nausea and [...] extremities. My scribe, Bobbi, was present as plug cutter during the entire exam. Examination of the [...] All medical record entries made by the mamieibe were at my direction and in my [...]
--- OUTSIDE RECORDS SUMMARY | 2022-04-05 09:37 | XMS_ITS | Encounter Summary ---
:1940 Author Organization [facility] Address [address] [place] [address] Care Team Providers Name Role Phone Unavailable Primary Care Provider Unavailable Encounter Details Date Type Department Care Team Description 10/06/2017 Hospital Encounter HX [facility]ST DERM Lora Hernández M.D. [address] [place], [place] [phone] (Wo rk) Social History [...] by mouth daily. 0 04/01/2016 (for_MULTI-DELYN) liquid [id number] Take 1 capsule by 0 08/2015 OIL ORAL mouth daily. omeprazole (PriLOSEC) 40 Take 40 mg by mouth. 0 0 10/06/2017 03/05/2022 mg capsule raNITIdine (for_ZANTAC) Take 150 mg by mouth 3 01/25/2019 150 mg tablet 2 (two) times a day. documented as of this encounter Plan of Treatment Not on filedocumented as of this encounter Visit Diagnoses Not on filedocumented in this encounter
--- OUTSIDE RECORDS SUMMARY | 2022-04-05 09:37 | XMS_ITS | Encounter Summary ---
:1940 Author Organization [facility] Address [address] [place] [address] Care Team Providers Name Role Phone Unavailable Primary Care Provider Unavailable Reason for Referral Outpatient (Routine) - Closed Specialty Diagnoses / Procedures Referred By Contact Refer red To Contact Dermatology Finn Quinonez M.D . [facility] Region [address] [place] [address] Referral ID Status Reason Start Date Expiration Date Visits Requ ested Visits Authorized [id number] Closed 07/17/2021 07/17/2022 1 1 Scheduling Instructions Recheck distal tongue lesion in 4 months OTYPE ENGINEER MANAGER Reason for Visit Reason Comments Skin Check Appointment Request (Routine) - Closed Specialty Diagnoses / Procedures Referred By Contact Refer red To Contact Dermatology Referral ID Status Reason Start Date Expiration Date Visits Requ ested Visits Authorized [id number] Closed 04/23/2021 04/23/2022 1 1 Encounter Details Date Type Department Care Team Description 07/17/2021 Office Visit Department of Finn Quinonez, Tumor Skin Uncertain Behavior (Primary Dx); Dermatology in [place] Nevi [facility]; [place], [place] [address] [facility] Keratosis Seborrheic [address] [place] [phone] Social History Tobacco Use Types Packs/Day Years [...] extremities. My nurse (Magalys) served as a personal care aide for the entirety of the exam. Examination [...] the patient by letter. Patient given pamphlet [id number]. PATIENT EDUCATION: Ready to learn. No apparent learning barriers were identified. Learning preferences include listening. Explained diagnosis and treatment plan; patient/guardian of patient expressed understanding of thecontent. By signing my name below, I, Sharona Barron, attest that this documentation has been prepared under the direction and in the presence of Finn Quinonez M.D. Electronically Signed: carolyne Mirza. 07/10/2021. 11:49 AM PROTOTYPE ENGINEER MANAGER. I, Finn Quinonez M.D., personally performed the services described in this documentation. All medical record entries made by the mamieibe were at my direction and in my presence. I have reviewed the chart and discharge instructions (if applicable) and agree that the record reflects my personal performance and is accurate and complete. Finn Quinonez M.D. OTYPE ENGINEER MANAGER documented in this encounter Miscellaneous Notes Result Encounter Note - Finn Quinonez M.D. - 07/23/2021 3:25 PM CST Left lateral back, mid: Benign lesion letter. Darrel [place] patient. Please send letter OTYPE ENGINEER MANAGER documented in this encounter Plan of Treatment Scheduled Referrals Name Type Priority Associated Order Schedule Diagnoses Dermatology office Outpatient Referral Routine Ex pected: visit (clinic) 10/15/2021 (Approximate), Expires: 10/15/2022 documented as of this encounter Procedures Procedure Name Priority Date/Time Associated Comments Diagnosis DERMATOPATHOLOGY CONSULT Routine 07/17/2021 1:04 Tumor Skin Results for this PM PROTOTYPE ENGINEER MANAGER Uncertain Behavior procedure are in the results section. documented in this encounter Results Dermatopathology Consult (07/17/2021 1:04 PM PROTOTYPE ENGINEER MANAGER) Component Value Ref Test Analysis Performed Pathologis t Range Method Time At Signature 07/23/2021 PDRM 3:07 PM PROTOTYPE ENGINEER MANAGER Participated in Alvaro Franklin 07/23/2021 PDRM the , 3:07 PM PROTOTYPE ENGINEER MANAGER Interpretation D.O.-Pathology Fellow Report Kristian Dong 07/23/2021 TRUDI electronically Ilana Kulkarni 3:07 PM PROTOTYPE ENGINEER MANAGER signed by Breanna Received in formalin labeled with the patient's name, 07/23/2021 PDRM Description: medical record number, and left lateral back, mid is a 3:07 PM PROTOTYPE ENGINEER MANAGER 1.2 x 0.8 x 0.1 cm pale [...] Tissue; Left lateral back, mid, 3:07 PM PROTOTYPE ENGINEER MANAGER Skin shave biopsy: ??Pigmented seborrheic keratosis Specimen Anatomical Collection Method Collection Time Receive d Time (Source) Location / / Volume Laterality Tissue 07/17/2021 1:04 PM 2 9:11 PROTOTYPE ENGINEER MANAGER AM PROTOTYPE ENGINEER MANAGER Narrative This result has an attachment that is no t available. Finn Quinonez M.D. 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
--- OUTSIDE RECORDS SUMMARY | 2022-04-05 09:37 | XMS_ITS | Encounter Summary ---
:1940 Author Organization [facility] Address [address] [place] [address] Care Team Providers Name Role Phone Unavailable [...] Not on filedocumented as of this encounter Procedures Procedure Name [...]
--- OUTSIDE RECORDS SUMMARY | 2022-04-05 09:37 | XMS_ITS | Encounter Summary ---
:1940 Author Organization [facility] Address [address] [place] [address] Care Team Providers Name Role Phone Unavailable Primary Care Provider Unavailable Reason for Referral Outpatient (Routine) - Closed Specialty Diagnoses / Procedures Referred By Contact Refer red To Contact Orthopedic Surgery Diagnoses Deformity Toe Acquired Right Pain Limb Generalized Mari Tinajero [facility] Region D.P.M. [address] [place] [phone] Referral ID Status Reason Start Date Expiration Date Visits Requ ested Visits Authorized [id number] Closed 10/06/2017 04/04/2018 1 1 Reason for Visit Reason Comments Follow-up Pain Outpatient (Routine) - Closed Specialty Diagnoses / Procedures Referred By Contact Refer red To Contact Orthopedic Surgery Mari Tinajero [facility] [place] [facility] D.P.M. [address] [place] [address] Referral ID Status Reason Start Date Expiration Date Visits Requ ested Visits Authorized [id number] Closed 09/29/2017 03/28/2018 1 1 Encounter Details Date Type Department Care Team Description 10/06/2017 Office Visit Department of Mari Tinajero Deformity Toe Acquired Right (Primary Dx); Orthopedic Surgery in [place], D.P.M. Pain Limb Generalized Reginaldo Comer, [address] [place] [address] [address] [place] [phone] (Work) [phone] Social History Tobacco Use Types Packs/Day Years [...] Treatment Scheduled Referrals Name Type Priority Associated Diagnoses Order S [facility] Orthopedic Surgery Outpatient Referral Routine Deformity Toe E xpected: office visit Acquired Right 11/05/2017 (clinic) Pain Limb (Approximate), Generalized Expires: 10/06/2020 documented as of this encounter Visit Diagnoses Diagnosis Deformity Toe Acquired Right - Primary Pain Limb Generalized documented in this encounter
--- OUTSIDE RECORDS SUMMARY | 2022-04-05 09:37 | XMS_ITS | Encounter Summary ---
:1940 Author Organization [facility] Address [address] [place] [address] Care Team Providers Name Role Phone Unavailable Primary Care Provider Unavailable Reason for Referral Specialty Diagnoses / Procedures Referred By Contact Refer red To Contact [facility] [place] [facility] Professional Buildin [address] [facility] [place] [phone] Referral ID Status Reason Start Date Expiration Date Visits Requ ested Visits Authorized ER BARBER Encounter Details Date Type Department Care Team Description 08/18/2020 Immunization Department of Dorys Pelletier Enco unter For COVID-19 Medicine, [place] MKamini Vaccine Immunization Professional Building, [address] t (Primary Dx) in [address] [address] [place] [address] [phone] Social History Tobacco Use Types Packs/Day Years Used Date Smoking Tobacco: Never Cigarettes Smokeless Tobacco: Never Sex Assigned at Date Recorded Not on file documented as of this encounter Plan of Treatment Scheduled Referrals Name Type Priority Associated Diagnoses Order S chedule Covid immunization Outpatient Referral Routine Encounter For E xpected: office visit COVID-19 Vaccine 09/08/2020, Subsequent; 21 days Immunization Expires: 08/18/2023 documented as of this encounter Visit Diagnoses Diagnosis Encounter For COVID-19 Vaccine Immunizat ion - Primary documented in this encounter
--- OUTSIDE RECORDS SUMMARY | 2022-04-05 09:37 | XMS_ITS | Encounter Summary ---
:1940 Author Organization [facility] Address [address] [place] [address] Care Team Providers Name Role Phone Unavailable Primary Care Provider Unavailable Reason for Referral Outpatient (Routine) - Closed Specialty Diagnoses / Procedures Referred By Contact Refer red To Contact Dermatology Finn Quinonez M.D . [facility] Region [address] [place] [phone] Referral ID Status Reason Start Date Expiration Date Visits Requ ested Visits Authorized [id number] Closed 02/19/2021 02/19/2022 1 1 Scheduling Instructions Recheck tongue lesion in 6-8 weeks Reason for Visit Reason Comments Suspicious Skin Lesion Outpatient (Routine) - Closed Specialty Diagnoses / Procedures Referred By Contact Refer red To Contact Dermatology Finn Quinonez M.D . [facility] [address] [place] [phone] Referral ID Status Reason Start Date Expiration Date Visits Requ ested Visits Authorized [id number] Closed 10/02/2020 10/02/2021 1 1 Encounter Details Date Type Department Care Team Description 02/19/2021 Office Visit Department of Finn Quinonez Lesion Ton gue (Primary Dermatology in [place] Preci[place] ) [place], [place] [address] [place] [phone] Social History Tobacco Use Types Packs/Day Years [...]
--- OUTSIDE RECORDS SUMMARY | 2022-04-05 09:37 | XMS_ITS | Encounter Summary ---
:1939 Author Organization [facility] Address [address] [place] [address] Care Team Providers Name Role Phone Unavailable Primary Care Provider Unavailable Reason for Referral Specialty Diagnoses / Procedures Referred By Contact Refer red To Contact Dorys Casillas M.D. [facility] Region [address] [place] [address] Referral ID Status Reason Start Date Expiration Date Visits Requ ested Visits Authorized MOUNTER OPERATOR Encounter Details Date Type Department Care Team Description 08/01/2020 Orders Only [facility] PCP TH MNT Sa wanda Casillas M.D. [address] [place] [phone] (Wo rk) Social History Tobacco [...]
--- OUTSIDE RECORDS SUMMARY | 2022-04-05 09:37 | XMS_ITS | Encounter Summary ---
:1940 Author Organization [facility] Address [address] [place] [address] Care Team Providers Name Role Phone Unavailable Primary Care Provider Unavailable Encounter Details Date Type Department Care Team Description 09/26/2017 Hospital Encounter Department of Radiology Mari Tinajero Pain Foot Left in [place], , D[facility] [address] [place] [address] [phone] Social History Tobacco Use [...] by mouth daily. 0 04/01/2016 (for_MULTI-DELYN) liquid [id number] Take 1 capsule by 0 10/0 08/2015 OIL ORAL mouth daily. raNITIdine (for_ZANTAC) [...] Probab le pes planus. Mari Tinajero D.P.M. [facility] BENNY documented in this encounter Visit Diagnoses Diagnosis Pain Foot Left documented in this encounter
--- OUTSIDE RECORDS SUMMARY | 2022-04-05 09:37 | XMS_ITS | Encounter Summary ---
:1939 Author Organization [facility] Address [address] [place] [address] Care Team Providers Name Role Phone Unavailable Primary Care Provider Unavailable Reason for Visit Reason Comments Skin Check Appointment Request (Routine) - Closed Specialty Diagnoses / Procedures Referred By Contact Refer red To Contact Dermatology Referral ID Status Reason Start Date Expiration Date Visits Requ ested Visits Authorized [id number] Closed 08/28/2019 08/27/2020 1 1 Encounter Details Date Type Department Care Team Description 01/10/2020 Office Visit Department of Finn Quinonez, Keratosis Actinic (Primary Dx); Dermatology in [place] Prec[place] Keratosis Seborrheic; [place], [place] [address] [facility] Nevi Multiple [address] [place] [phone] Social History Tobacco Use Types Packs/Day Years [...] for melanoma. Allergies Allergen Reactions ??? Black [place] Hives ??? Codeine GI intolerance nausea and [...]
--- OUTSIDE RECORDS SUMMARY | 2022-04-05 09:37 | XMS_ITS | Encounter Summary ---
:1939 Author Organization [facility] Address [address] [place] [address] Care Team Providers Name Role Phone Unavailable Primary Care Provider Unavailable Reason for Visit Reason Comments Skin Check Outpatient (Routine) - Closed Specialty Diagnoses / Procedures Referred By Contact Refer red To Contact Dermatology Finn Quinonez M.D . [facility] Region [address] [place] [phone] Referral ID Status Reason Start Date Expiration Date Visits Requ ested Visits Authorized [id number] Closed 10/02/2020 10/02/2021 1 1 Encounter Details Date Type Department Care Team Description 01/08/2021 Office Visit Department of Finn Quinonez, Venita dallas (Primary Dx); Dermatology in [place]rel Preciado Keratosis Seborrheic [place], [place] [address] [place] [phone] Social History Tobacco Use Types Packs/Day Years [...] left shoulder. Allergies Allergen Reactions ??? Black [place] Hives ??? Codeine GI intolerance nausea and [...] Finn Quinonez M.D. Electronically Signed: carolyne Rojas. IFinn M.D., personally performed the services described in [...]
--- OUTSIDE RECORDS SUMMARY | 2022-04-05 09:37 | XMS_ITS | Encounter Summary ---
:1940 Author Organization [facility] Address [address] [place] [address] Care Team Providers Name Role Phone Unavailable Primary Care Provider Unavailable Encounter Details Date Type Department Care Team Description 02/19/2021 Clinical Communication Department of Finn Quinonez Dermatology in [place], [place] [address] [facility] [address] [place] [phone] Social History Tobacco Use Types Packs/Day Years [...]
--- OUTSIDE RECORDS SUMMARY | 2022-04-05 09:37 | XMS_ITS | Encounter Summary ---
:1939 Author Organization [facility] Address [address] [place] [address] Care Team Providers Name Role Phone Unavailable Primary Care Provider Unavailable Reason for Referral Outpatient (Routine) - Closed Specialty Diagnoses / Procedures Referred By Contact Refer red To Contact Orthopedic Surgery Mari Tinajero, [facility] [address] [place] [phone] Referral ID Status Reason Start Date Expiration Date Visits Requ ested Visits Authorized [id number] Closed 09/29/2017 03/28/2018 1 1 Scheduling Instructions I have talked to the patient and she felipe l be here at 9:00 for a 9:15 appointment. Encounter Details Date Type Department Care Team Description 09/26/2017 Orders Only Department of Mari Tinajero Pain Foot Left (Primary Orthopedic Surgery in R, D.P.M. Dx) Reginaldo Comer, [address] [place] [address] [address] [place] [phone] (Work) [phone] Social History Tobacco Use Types Packs/Day Years [...]
--- OUTSIDE RECORDS SUMMARY | 2022-04-05 09:37 | XMS_ITS | Encounter Summary ---
:1939 Author Organization [facility] Address [address] [place] [address] Care Team Providers Name Role Phone Unavailable Primary Care Provider Unavailable Reason for Referral Outpatient (Routine) - Closed Specialty Diagnoses / Procedures Referred By Contact Refer red To Contact Dermatology Finn Quinonez M.D . [facility] [address] [place] [phone] Referral ID Status Reason Start Date Expiration Date Visits Requ ested Visits Authorized [id number] Closed 10/02/2020 10/02/2021 1 1 Scheduling Instructions Skin lesions and dry skin Reason for Visit Reason Comments Follow-up Outpatient (Routine) - Closed Specialty Diagnoses / Procedures Referred By Contact Refer red To Contact Dermatology Finn Quinonez M.D . [facility] [address] [place] [phone] Referral ID Status Reason Start Date Expiration Date Visits Requ ested Visits Authorized [id number] Closed 07/11/2020 07/11/2021 1 1 Encounter Details Date Type Department Care Team Description 10/02/2020 Office Visit Department of Finn Quinonez, Xerosis (P rimary Dx) [facility] [address] [phone] [phone] Social History Tobacco Use Types Packs/Day Years [...]
--- OUTSIDE RECORDS SUMMARY | 2022-04-05 09:37 | XMS_ITS | Encounter Summary ---
:1940 Author Organization [facility] Address [address] [place] [address] Care Team Providers Name Role Phone Unavailable Primary Care Provider Unavailable Reason for Referral Outpatient (Routine) - Closed Specialty Diagnoses / Procedures Referred By Contact Refer red To Contact Dermatology Finn Quinonez M.D . [facility] Region [address] [place] [address] Referral ID Status Reason Start Date Expiration Date Visits Requ ested Visits Authorized [id number] Closed 07/11/2020 07/11/2021 1 1 Scheduling Instructions Recheck skin lesion lateral to left eye in 4-6 weeks LY PRESERVATION OFFICER Reason for Visit Reason Comments Skin Check Appointment Request (Routine) - Closed Specialty Diagnoses / Procedures Referred By Contact Refer red To Contact Family Medicine Referral ID Status Reason Start Date Expiration Date Visits Requ ested Visits Authorized [id number] Closed 05/01/2020 05/01/2021 1 1 Encounter Details Date Type Department Care Team Description 07/11/2020 Office Visit Department of Finn Quinonez, Venita [place] (Primary Dx); Dermatology in [place] Keratosis Seborrheic; [place], [place] [address] [phone] Social History Tobacco Use Types Packs/Day Years [...] concern today. Allergies Allergen Reactions ??? Black Marcus Hives ??? Codeine GI intolerance nausea and [...] accurate and complete. Finn Quinonez M.D. 07/11 LY PRESERVATION OFFICER documented in this encounter Plan of Treatment Scheduled Referrals Name Type Priority Associated Order Schedule Diagnoses Dermatology office Outpatient Referral Routine Ex pected: visit (clinic) 10/09/2020 (Approximate), Expires: 07/11/2023 documented as of this encounter Visit Diagnoses Diagnosis Nevi Multiple - Primary Keratosis Seborrheic Rosacea documented in this encounter
--- OUTSIDE RECORDS SUMMARY | 2022-04-05 09:37 | XMS_ITS | Encounter Summary ---
:1940 Author Organization [facility] Address [address] [place] [address] Care Team Providers Name Role Phone Unavailable Primary Care Provider Unavailable Reason for Visit Reason Comments Question Encounter Details Date Type Department Care Team Description 07/12/2020 Clinical Communication Department of [facility], Pcp Qu estion Dermatology in [address] [phone] Social History Tobacco Use Types [...] cheeks currently in no inflammatory lesions. ??Thanks Y MACHINE OPERATOR FARMWORKER Telephone Encounter - Estephanie iAken - 07/13/2020 9:16 AM CST Pt returned your call, please try again when you have time. Y MACHINE OPERATOR FARMWORKER Telephone Encounter - Magalys Valverde L.P.NTaqueria - 07/12/2020 2:45 PM CST I left a message for the patient to call back. Y MACHINE OPERATOR FARMWORKER Telephone Encounter - Ramonita Butts - 07/12/2020 1:43 PM CST Reason for Communication: Question Current Can Nursing/Provider leave a detailed message?: Did the patient refuse triage through Nurse line? (for symptom based concerns): Action Needed: Patient called stating that the prescribed, for her is too expensive and the patient is asking if there is an alternative? Name of Medication (if relevant): metroNIDAZOLE Y MACHINE OPERATOR FARMWORKER documented in this encounter Plan of Treatment Not on filedocumented as of this encounter Visit Diagnoses Not on filedocumented in this encounter
--- OUTSIDE RECORDS SUMMARY | 2022-04-05 09:37 | XMS_ITS | Encounter Summary ---
:1940 Author Organization [facility] Address [address] [place] [address] Care Team Providers Name Role Phone Unavailable [...]
--- OUTSIDE RECORDS SUMMARY | 2022-04-05 09:37 | XMS_ITS | Encounter Summary ---
:1940 Author Organization [facility] Address [address] [place] [address] Care Team Providers Name Role Phone Unavailable Primary Care Provider Unavailable Encounter Details Date Type Department Care Team Description 09/09/2016 Hospital Encounter HX [facility] Mari Tinajero D.PTaqueriaM. [address] [place] [address] (Wo rk) Social History Tobacco Use [...] by mouth daily. 0 04/01/2016 (for_MULTI-DELYN) liquid [id number]-MGD-OLZ-WNF-[id number] Take 1 capsule by 0 08/2015 OIL ORAL mouth daily. documented as of this encounter Progress Notes Mari Tinajero D.P.M. - 09/09/2016 1:38 PM CDT [id number] Patient seen for follow up of orthotic [...] of the modified devices and have her picker and packer at that time. Call if questions or problems thereafter. Mari Tinajero D.P.M./joss Electronically Signed By: MARI TINAJERO DPM On: 09/12/2016 02:45 PM Source: [facility] MHSDOLBEYNONRADSYS Document Id: [id number] documented in this encounter Miscellaneous Notes Miscellaneous - Mari Tinajero D.P.M. - 09/09/2016 2:26 PM CDT Ambulatory Patient Summary [address] [id number] Visit Information Name: RUBI MOTA [facility] Number: [id number] Current Date: 09/09/2016 14:26:04 Physicians [...] you dont have one. Go to [email or web address] and click on Create Your Account. Then, follow the directions to complete the online form. Youll be asked for your [facility] number which you can find at the top of this document. Your Goals/Additional instructions: Source: [facility] POWERCHART Document Id: [id number] Miscellaneous - Mari Tinajero D.P.M. - 09/09/2016 2:26 PM CDT Ambulatory Discharge Medication List [address] [id number] Visit Information Name: RUBI MOTA [facility] Number: [id number] Current Date: 09/09/2016 14:26:03 Attending [...] of emergency. Electronically Signed By: MARI TINAJERO DPRonnie Signed On:09-SEP-2016 14:26:02 Additional Information: Source: [facility] Mercateo Document Id: [id number] Miscellaneous - Charlotte Aceves R.N. - 09/09/2016 1:50 PM CDT Adult Retail Merchandising Specialist Intake/History Adult Retail Merchandising Specialist Intake/History Entered On: 09/09/2016 13:55 CDT Performed On: 09/09/2016 13:50 CDT by CHARLOTTE ACEVES dry boss Chief Complaint : f/u orthotics, some days [...] Preferred Communication Mode : Verbal Languages : Burkinan Is Patient Female and 13-50 no hysterectomy [...] ACEVES RN - 09/09/2016 13:50 CDT Source: [facility] [employer]ate[employer] Document Id: [id number] CDT!33 documented in this encounter Plan of Treatment Not on filedocumented as of this encounter Visit Diagnoses Not on filedocumented in this encounter
--- OUTSIDE RECORDS SUMMARY | 2022-04-05 09:37 | XMS_ITS | Encounter Summary ---
:1940 Author Organization [facility] Address [address] [place] [address] Care Team Providers Name Role Phone Unavailable Primary Care Provider Unavailable Reason for Visit Reason Comments Toe Problem Pain Outpatient (Routine) - Closed Specialty Diagnoses / Procedures Referred By Contact Refer red To Contact Orthopedic Surgery Diagnoses Deformity Toe Acquired Right Pain Limb Generalized Mari Tinajero [facility] D.P.M. [address] [place] [address] Referral ID Status Reason Start Date Expiration Date Visits Requ ested Visits Authorized [id number] Closed 10/06/2017 04/04/2018 1 1 Encounter Details Date Type Department Care Team Description 11/17/2017 Office Visit Department of Mari Tinajero Deformity Toe Acquired Right; Orthopedic Surgery in [place], D.P.M. Pain Limb Generalized [place], [address] [place] [address] [address] [place], [place] [phone] (Work) [phone] Social History Tobacco Use Types Packs/Day Years [...] by: Mari Tinajero Authorized by: Mari Tinajero Die Cast Technician services utilized: parts interpreter not needed Risks discussed with: patient Procedural [...] Name Priority Date/Time Associated Diagnosis Comme nts AR ARTHCS ASP/INJ Routine 11/17/2017 10:15 AM Pain Limb Res ults for this INT JT WO US CDT Generalized procedure are i n the results section. documented in this encounter Results AR ARTHCS ASP/INJ INT JT WO US (11/17/2017 10:15 AM CDT) Narrative MMODAL - 11/17/2017 10:15 AM CDT Brittnee McconnellPTaqueriaMTaqueria ? 11/17/2017 11:41 AM Small joint aspir-inject Date/Time: 11/17/2017 10:45 AM Performed by: Mari Tinajero Authorized by: Mari Tinajero Die Cast Technician services utilized: interpret er not needed ?? [...] 5 days ??Discharge instruction provided: ice a yuliet as needed for comfort Mari Tinajero D.P.M. PROCEDURE/MINOR SURGICAL ORD ERABLES Performing Organization Address [...]
--- OUTSIDE RECORDS SUMMARY | 2022-04-05 09:37 | XMS_ITS | Encounter Summary ---
:1940 Author Organization [facility] Address [address] [place] [address] Care Team Providers Name Role Phone Unavailable Primary Care Provider Unavailable Encounter Details Date Type Department Care Team Description 09/12/2020 Immunization Department of Marlon Chen For COVID-19 Medicine, [place] Alisa Trujillo. Vaccine Immunization Professional Building, [address] [facility] in [address] [address] [place] [address] [phone] Social History Tobacco Use Types Packs/Day Years Used Date Smoking Tobacco: Never Cigarettes Smokeless Tobacco: Never Sex Assigned at Date Recorded Not on file documented as of this encounter Plan of Treatment Not on filedocumented as of this encounter Visit Diagnoses Diagnosis Encounter For COVID-19 Vaccine Immunizat ion documented in this encounter
--- OUTSIDE RECORDS SUMMARY | 2022-04-05 09:37 | XMS_ITS | Encounter Summary ---
:1940 Author Organization [facility] Address [address] [place] [address] Care Team Providers Name Role Phone Unavailable Primary Care Provider Unavailable Reason for Visit Reason Comments Communication Encounter Details Date Type Department Care Team Description 07/28/2017 Clinical Communication Department of [facility] Fer montoya, Communication Medicine, [place]rel Chun D.P.M. [facility], in [address] [place], [facility] [place] [facility] [phone] [phone] [place] ([place]) [phone] Social History Tobacco Use [...] for 08/18/17. 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
--- OUTSIDE RECORDS SUMMARY | 2022-04-05 09:37 | XMS_ITS | Encounter Summary ---
:1940 Author Organization [facility] Address [address] [place] [address] Care Team Providers Name Role Phone Unavailable Primary Care Provider Unavailable Encounter Details Date Type Department Care Team Description 07/15/[address] [facility] Mari Tinajero D.P.M. 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 0 04/01/2016 (for_MULTI-DELYN) liquid PGLZF-3-RGH-ZOT-BNW-ADCB Take 1 capsule by 0 08/2015 OIL ORAL mouth daily. documented as of this encounter Progress Notes Mari Tinajero D.PTaqueriaM. - 07/15/2016 10:33 AM CST [id number] Patient is a 75-year-old female who presents [...] Patient will be notified upon receipt and picking tech at that time. Will follow up again after wearing them for about 3 weeks so will follow up with her again in about 6 weeks. Patient understanding and happy with this plan. Follow up as above. Mari Tinajero D.P.M./joss Electronically Signed By: MARI TINAJERO On: 07/23/2016 02:48 PM Source: [facility] MHSDOLBEYNONRADSYS Document Id: [id number] STMAS TREE FARM MANAGER documented in this encounter Miscellaneous Notes Miscellaneous - Mari Tinajero D.P.M. - 07/15/2016 12:22 PM CST Ambulatory Patient Summary [address] [place] [id number] Visit Information Name: RUBI MOTA [facility] Number: [id number] Current Date: 07/15/2016 12:22:32 Physicians [...] Appointments Date Time Location Provider 08/26/2016 11:00 [facility] Podiatry Mari Ferreira DPM Attention: Contact [...] if you dont have one. Go to [email or web address] and click on Create Your Account. Then, follow the directions to complete the online form. Youll be asked for your [facility] number which you can find at the top of this document. Your Goals/Additional instructions: Source: [facility] POWERCHART Document Id: [id number] STMAS TREE FARM MANAGER Miscellaneous - Mari Tinajero D.P.M. - 07/15/2016 12:22 PM CST Ambulatory Discharge Medication List [address] [id number] Visit Information Name: RUBI MTOA [facility] Number: [id number] Current Date: 07/15/2016 12:22:31 Attending Provider: MARI TINAJERO DPM Primary Care Provider: PCPHALLIE MARIE ANN has been given the following list of [...] DPM Signed On:15-JUL-2016 12:22:30 Additional Information: Source: [facility] POWERCHART Document Id: [id number] STMAS TREE FARM MANAGER Miscellaneous - Charlotte Aceves R.N. - 07/15/2016 10:50 AM CST Adult [place] Intake/History Adult [place] Intake/History Entered On: 07/15/2016 10:54 CHRISTMAS TREE FARM MANAGER Performed On: 07/15/2016 10:50 CHRISTMAS TREE FARM MANAGER by CHARLOTTE ACEVES control officer Chief Complaint : f/u left foot pain, last injection March Temperature Core : 36.6 DegC(Converted to: 97.9 DegF) Peripheral Pulse Rate : 78 /min Respiratory Rate : 16 /min Heart Rhythm : Regular BP Location : Left upper extremity Blood Pressure Cuff Size : Regular SpO2 : 99 % CHARLOTTE ACEVES RN - 07/15/2016 10:50 CHRISTMAS TREE FARM MANAGER General Info Information Given By : Patient Preferred Communication Mode : Verbal Languages : Mohawk Is Patient Female and 13-50 no hysterectomy : No CHARLOTTE ACEVES RN - 07/15/2016 10:50 CHRISTMAS TREE FARM MANAGER Subjective Pain Symptoms : Yes CHARLOTTE ACEVES RN - 07/15/2016 10:50 CHRISTMAS TREE FARM MANAGER Pain Scale Pain Scale Verbal 0-10 : Open CHARLOTTE ACEVES RN - 07/15/2016 10:50 CHRISTMAS TREE FARM MANAGER Pain Pain Assessment Grid Pain 1 Location : Foot CHARLOTTE AECVES RN - 07/15/2016 10:50 CHRISTMAS TREE FARM MANAGER Dependent Habits Exposure to Tobacco Smoke : Other: former Smoking Status : Former smoker Tobacco 2A : Yes Tobacco Use/Currently Using : No Tobacco Use/Last 30 Days : No Tobacco Use/Last 12 months : No CHARLOTTE ACEVES RN - 07/15/2016 10:50 CHRISTMAS TREE FARM MANAGER Source: [facility] KlocworkCHART Document Id: [id number] CHRISTMAS TREE FARM MANAGER!30 STMAS TREE FARM MANAGER documented in this encounter Plan of Treatment Not on filedocumented as of this encounter Visit Diagnoses Not on filedocumented in this encounter
--- OUTSIDE RECORDS SUMMARY | 2022-04-05 09:37 | XMS_ITS | Encounter Summary ---
:1939 Author Organization [facility] Address [address] [place] [address] Care Team Providers Name Role Phone Unavailable Primary Care Provider Unavailable Encounter Details Date Type Department Care Team Description 05/22/2017 Abstract Department of Family Medicine, Provider, Historical [facility], in [place], [place] [address] [place] [address] Social History Tobacco Use Types Packs/Day Years Used Date Smoking Tobacco: Former Sex Assigned at Date Recorded Not on file documented as of this encounter Plan of Treatment Not on filedocumented as of this encounter Visit Diagnoses Not on filedocumented in this encounter
--- OUTSIDE RECORDS SUMMARY | 2022-04-05 09:37 | XMS_ITS | Encounter Summary ---
:1940 Author Organization [facility] Address [address] [place] [address] Care Team Providers Name Role Phone Unavailable [...] Orthopedic Surgery Diagnoses FOOT ISSUE Mari Tinajero, [facility] Procedures Office Visit D.P.M. [address] [place] [address] Referral ID Status Reason Start Date Expiration Date Visits Requ ested Visits Authorized [id number] Closed 07/23/2017 01/19/2018 1 1 Encounter Details Date Type Department Care Team Description 09/08/2017 Office Visit Department of Mari Tinajero Neuroma ( Primary Dx); Orthopedic Surgery in [place], D.P.M. Pain Limb Generalized [place], [address] [place] [address] [address] [place] [phone] (Work) [phone] Social History Tobacco Use Types Packs/Day Years [...] consistently. She had a recent trip to [place] where she did alot a walking with [...]
--- OUTSIDE RECORDS SUMMARY | 2022-04-05 09:37 | XMS_ITS | Encounter Summary ---
:1939 Author Organization [facility] Address [address] [place] [address] Care Team Providers Name Role Phone Unavailable Primary Care Provider Unavailable Reason for Visit Reason Comments Lesion Outpatient (Routine) - Closed Specialty Diagnoses / Procedures Referred By Contact Refer red To Contact Dermatology Finn Quinonez M.D . [facility] Region [address] [place] [address] Referral ID Status Reason Start Date Expiration Date Visits Requ ested Visits Authorized [id number] Closed 02/19/2021 02/19/2022 1 1 Encounter Details Date Type Department Care Team Description 04/23/2021 Office Visit Department of Finn Quinonez, Tumor Skin Head Uncertain Behavior (Primary Dx); Dermatology in [place] Prec[place] Tumor Skin Uncertain Behavior [place], [place] [address] [phone] Social History Tobacco Use Types Packs/Day Years [...] the patient by letter. Patient given pamphlet TF8938. 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 ??Grossed by FL. Addendum GMS stain is unremarkable. 04/30/2021 PD RM 2:43 PM CDT Signed by Mary Hanna M.D. 04/30/2021 2:43 PM Comment: REVISED RESULTS Interpetation FINAL DIAGNOSIS 04/30/2021 2:43 PM C AISSATOU BRUSH A. ??DermPath Consult Wet Tissue; Right lower medial cheek, Skin shave biopsy: ??Actinic keratosis with dermal granulomatous inflammation COMMENT A GMS stain has been ordered and an addendum report will be issued upon its review. Specimen Anatomical Collection Method Collection Time Receive d Time (Source) Location / / Volume Laterality Tissue 04/23/2021 3:10 PM 1 CDT 10:00 AM CDT Narrative This result has an attachment that is no t available. Finn Quinonez M.D. LAB PATH DERM ORDERABLES Performing Organization Address City/State/ZIP Code Phon e Number [facility] - [address] [place], [place] [address] [facility] [address] [facility] [address] documented in this encounter Visit Diagnoses Diagnosis Tumor Skin Head Uncertain Behavior - Diana de la vega Tumor Skin Uncertain Behavior documented in this encounter
--- OUTSIDE RECORDS SUMMARY | 2022-04-05 09:37 | XMS_ITS | Encounter Summary ---
:1939 Author Organization [facility] Address [address] [place] [address] Care Team Providers Name Role Phone Unavailable Primary Care Provider Unavailable Encounter Details Date Type Department Care Team Description 04/01/2016 Hospital Encounter HX [facility] Mari Tinajero D.PTaqueriaM. [address] [place] [address] (Wo rk) Social History Tobacco Use [...] by mouth daily. 0 04/01/2016 (for_MULTI-DELYN) liquid VKOCY-5-GSG-CVM-MBI-QYKS Take 1 capsule by 0 08/2015 OIL ORAL mouth daily. documented as of this encounter Progress Notes Mari Tinajero D.P.M. - 04/01/2016 10:20 AM CDT [id number] Patient is a 75-year-old female seen for [...] Tinajero D.P.M./joss Electronically Signed By: MARI TINAJERO DP On: 04/08/2016 10:56 AM Source: [facility] MHSDOLBEYNONRADSYS Document Id: [id number] documented in this encounter Miscellaneous Notes Miscellaneous - Mari Tinajero D.P.M. - 04/01/2016 11:08 AM CDT Ambulatory Discharge Medication List [address] [id number] Visit Information Name: RUBI MOTA [facility] Number: [id number] Visit Date: 04/01/2016 [...] DPM Signed On:01-APR-2016 11:08:57 Additional Information: Source: [facility] POWERCHART Document Id: [id number] Miscellaneous - Mari Tinajero D.P.M. - 04/01/2016 11:08 AM CDT Ambulatory Patient Summary [place] - [address] [id number] Visit Information Name: RUBI MOTA [facility] Number: [id number] Current Date: 04/01/2016 [...] if you dont have one. Go to [email or web address] and click on Create Your Account. Then, follow the directions to complete the online form. Youll be asked for your [facility] number which you can find at the top of this document. Your Goals/Additional instructions: Source: [facility] POWERCHART Document Id: [id number] Miscellaneous - Charlotte Aceves RTaqueriaNTaqueria - 04/01/2016 10:40 AM CDT Adult Biometrician Intake/History Adult Biometrician Intake/History Entered On: 04/01/2016 10:44 CDT Performed On: 04/01/2016 10:40 CDT by CHARLOTTE ACEVES complaint supervisor Chief Complaint : left 2nd and 3rd [...] Preferred Communication Mode : Verbal Languages : Guinean Is Patient Female and 13-50 no hysterectomy [...] ACEVES RN - 04/01/2016 10:40 CDT [facility] Document Id: [id number] CDT!33 documented in this encounter Plan of Treatment Not on filedocumented as of this encounter Visit Diagnoses Not on filedocumented in this encounter
== END 2022-04-05 10:55 | disposition home or self-care (01) ==
PROVIDERS: Emergency Provider Emergency Medicine Emergency Medical Services; PCP Physician Assistant Medical
DX: S20.212A Contusion of left front wall of thorax, initial encounter (principal); W22.8XXA Striking against or struck by other objects, initial encounter
CPT/HCPCS: 71101; 99283; 99284

== ENCOUNTER 2023-01-09 10:25 | Outpatient (CLI) | payer MEDICARE, OTHER, SELFPAY ==
--- OUTSIDE RECORDS SUMMARY | 2023-01-09 10:27 | XMS_ITS | Continuity of Care Document ---
Author Name Unknown Organization [facility] Address [address] [place] [address] [address] [place] [address] Phone Care Team Providers Care Glaze Sprayer Name Role Phone Ly Fisher MD Unavailable Unavailable Medications Medication Instructions Dosage Effective Dates (start - stop) Status Comments Percocet 5 mg-325 mg Tab - A ctive Procedures Procedure Date Office/outpatient visit,est, mod 2008 X-ray exam lower spine 2-3 views 2008 Office/outpatient visit,est, mod 2008 X-ray exam lower spine 2-3 views 2008 Office/outpatient visit,est, mod 2008 X-ray exam lower spine 2-3 views 2008 Postop followup visit X-ray exam lower spine 2-3 views 2007 Lumbar spine fusion, posterolateral Spine fusion, each add'lvertebra 2007 Remove lumbar spine lamina, 1 seg Remove added spine lamina, 1 seg 2007 Insert spine seg fix, post, 3-6 seg Autograft, spine surgery, local 008 Allograft, spine surg, morselized Assist ILumbar spine fusion, posterolate ral Assist Spine fusion, each add'lvertebra Assist Remove lumbar spine lamina, 1 seg Assist Remove added spine lamina, 1 seg Assist Insert spine seg fix, post, 3-6 s eg Pre Op Office/outpatient visit, Oct-28-2 008 Office consultation, moderate 8 X-ray exam lwr spine, min 4 views Advance Directives Directive Yes / No Effective Date File Name No Information Encounters Encounter Description Practice Location Reason(s) For Visit Diagnoses Date Provider Providers Copied on Encounter [facility], [address] [place] [address], [id number], tel:[phone] [facility] No Information Dec-0 7-201 0 Transfeldt Ensor. [facility], [address], [address], [id number], [place]. tel:[phone] Referring Provider: Daniel Granger [address], [address]. tel:[phone] Office/outpa tient visit,est, mod [facility], [address] [place] [address], [facility], [place] tel:[phone] [facility] No Information Sep-1 5-200 9 Transfeldt Ensor. [facility], [address], [address], [id number], [place]. tel:[phone] Referring Provider: Daniel Granger [address], [address]. tel:[phone] Office/outpa tient visit,est, mod [facility], [address] [place] [address], [facility], [place] tel:[phone] [facility] No Information Micky-1 6-200 9 Transfeldt Ensor. [facility], [address], [address], [id number], [place]. tel:[phone] Referring Provider: Daniel Granger [address], [address]. tel:[phone] Office/outpa tient visit,est, mod [facility], [address] [place] [address], [facility], [place] tel:[phone] [facility] No Information Mar-0 3-200 9 Transfeldt Ensor. [facility], [address], [address], [id number], [place]. tel:[phone] Referring Provider: Daniel Granger, [address], [address]. tel:[phone] [facility], [address] [place] [address], [address], [place] tel:[phone] [facility] No Information 2-200 8 Eckroth Zhou. [address] [place] [address], [id number], [place]. tel:[phone] Referring Provider: Daniel Granger [address], [address]. tel:[phone] [facility], [address] [place] [address], [address], [place] tel:[phone] [facility] No Information 6-200 8 Transfeldt Ensor. [facility], [address], [address], [id number], [place]. tel:[phone] [facility], [address] [place] [address], [address], [place] tel:[phone] [facility] No Information 7200 8 Transfeldt Ensor. [facility], [address], [address], [id number], [place]. tel:[phone] Referring Provider: Daniel Granger, [address], [address]. tel:[phone] Pre Op Office/outpa tient visit, [facility], [address] [place] [address], [address], [place] tel:[phone] [facility] No Information 8-200 8 Transfeldt Ensor. [facility], [address], [address], [id number], [place]. tel:[phone] Referring Provider: Daniel Granger Results Scorecard [facility] [address] [place], [address]. tel:[phone] Office consultation , moderate [facility], [address] [place], [place] [address] [address], [place], [address], [place] tel:[phone] [facility] No Information 8 Transfeldt Ensor. [facility], [address] [place] [address], [facility] [address], [place], [place], [id number], [place]. tel:[phone] Referring Provider: Daniel Granger Results [facility] [address] [place], [address]. tel:[phone] Family History Family Member Type Diagnosis Age At Onset No Information Payers Payer name Insurance type Covered republican ID Authorliviaa kseniasheila(s) [employer] Work Comp WC [id number] [facility] Medicare CI [id number] Social History Type Description Quantity Date Captured Comments Sex Female Smoking Status No Information Chief Complaint And Reason For Visit No Information Reason For Referral Reason For Referral No Information Plan Of Treatment Date Type Action Status No Information History Of Present Illness Encounter Date Complaint History Of Prese nt Illness No Information Functional Status Date Functional Assessmen t No Information Instructions Date Instruction Additional Infor mation No Information Assessments Type Assessment Date No Information Patient Care Teams Name Effective Dates (start - stop) Status Members No Information
== END 2023-01-09 10:26 | disposition home or self-care (01) ==
PROVIDERS: PCP Physician Assistant Medical; Visit Provider Obstetrics & Gynecology
DX: D64.9 Anemia, unspecified (principal); R39.15 Urgency of urination
CPT/HCPCS: 87086; 87186